=== PATIENT | female | born 1995 | race Caucasian/White ===

== ENCOUNTER 2018-12-25 10:20 | Outpatient (CLI) | payer MEDICAID, SELFPAY ==
[2018-02-15 13:07] VITALS: BMI 23.2
[2018-12-25 10:33] VITALS: BMI 27.8
[2018-12-25 11:31] LABS: Hematocrit 36.2 % (37-47); Hemoglobin 11.9 g/dl (12.0-15.0); Mean Corp Hgb Conc 32.9 g/gl (32-36); Mean Corpuscular Hgb 28.5 pg (27.0-32.0); Mean Corpuscular Volume 86.8 fL (81-99); Mean Platelet Vol. 10.8 fl (6.2-12.0); Platelet Count 276 K/mm3 (150-450); RBC Distribution Width CV 13.1 % (11.6-14.6); RBC Distribution Width SD 40.6 fl (35.1-43.9); Red Blood Count 4.17 M/mm3 (4.2-5.4); White Blood Count 8.3 K/mm3 (4.4-11.0)
[2018-12-25 11:38] LABS: Prothrombin Time (Protime)PT. 12.5 SECONDS (11.7-14.9); Scan Indicated on CBC? Y/N NO
[2018-12-25 11:39] LABS: Partial Thromboplast Time 27.9 Seconds (24.1-36.2)
[2018-12-25 11:44] LABS: Protein, Urine (Random) 22.2 mg/dL (<11.9); Protein:Creat Ratio 396 mg/g CRE (0-200)
[2018-12-25 11:45] LABS: AST(SGOT) 82 U/L (15-37); Alanine Aminotransfer ALT/SGPT 122 U/L (13-56); Creatinine, Serum 0.54 mg/dL (0.55-1.02); EST Glomerular Filtration Rate 146 mL/min (>60); Est Glom Filt Rate - Afr Amer 177 mL/min (>60); Estimated Creatinine Clearance 131.74 ml/min; Uric Acid 4.9 mg/dL (2.6-6.0)
[2018-12-25 11:52] LABS: Amphetamine Urine VISTA NEGATIVE (<1000 ng/mL); Barbiturate Urine VISTA NEGATIVE (< 200 ng/mL); Benzodiazepine Urine VISTA NEGATIVE (< 200 ng/mL); Cocaine Urine VISTA NEGATIVE (< 300 ng/mL); Ecstacy Urine VISTA NEGATIVE (< 500 ng/mL); Methadone Urine VISTA NEGATIVE (< 300 ng/mL); PCP Urine VISTA NEGATIVE (< 25 ng/mL); THC Urine VISTA NEGATIVE (< 50 ng/mL); Vista UDS pH Range 7
--- NOTE | 2018-12-25 12:57 | OB.TRI.NOTE ---
History of Present Illness Date of Service: 12/25/18 Was patient seen by the physician?: Yes Reason For Visit: RIGHT UPPER QUADRANT PAIN Date of Service: 12/25/18 Gestational age: 33.0 History of Present Illness: 23yo @ 33 wks with PRE E without severe features- here for elevated BP- taken at [facility]. pt was sent by [employer]- BPs 120s/90s. pt reports has had intermittent headache behind both eyes, no visual changes, some RUQ discomfort, no N/V. pt was admitted to [facility] for three days- discharged yesterday - was sent to [facility] initially for detox due to heroin relapse- found to have PRE E without severe features and monitored. pt reports was told she had to go to [facility] for delivery and remainder of care due to subutex rx. after monitoring on L&D FHR reactive cat 1 - pt reports improvement in Headache without intervention. Allergies No Known Allergies Allergy (Verified 12/25/18 10:37) - Pertinent Past Medical History Medical History: Past Medical History (Last Updated 02/15/18 @ 13:11 by Michaela Dorsey) H/O emotional problems Hemorrhoids Incontinence Migraines Laboratory Studies: Laboratory Tests 12/25/18 12/25/18 12/25/18 Range/Units 11:12 11:12 11:12 WBC (4.4-11.0) K/mm3 RBC (4.2-5.4) M/mm3 Hgb (12.0-15.0) g/dl Hct (37-47) % MCV (81-99) fL MCH (27.0-32.0) pg MCHC (32-36) g/gl RDW (11.6-14.6) % RDW Differential (35.1-43.9) fl Plt Count (150-450) K/mm3 MPV (6.2-12.0) fl PT (11.7-14.9) SECONDS INR APTT (24.1-36.2) Seconds Creatinine 0.54 L (0.55-1.02) mg/dL Estim Creat Clear Calc 131.74 ml/min Est GFR (MDRD) Af Amer 177 (>60) mL/min Est GFR (MDRD) Non-Af 146 (>60) mL/min Uric Acid 4.9 (2.6-6.0) mg/dL AST 82 H (15-37) U/L ALT 122 H (13-56) U/L U Random Total Protein 22.2 H (<11.9) mg/dL Urine Creatinine 56.10 (NO RANGE EST.) mg/dL Protein/Creatinin Ratio 396 H (0-200) mg/g CRE Urine Opiates Screen NEGATIVE (< 300 ng/mL) Urine Methadone Screen NEGATIVE (< 300 ng/mL) Ur Barbiturates Screen NEGATIVE (< 200 ng/mL) Ur Phencyclidine Scrn NEGATIVE (< 25 ng/mL) Ur Amphetamines Screen NEGATIVE (<1000 ng/mL) U Methamphetamin-MDMA NEGATIVE (< 500 ng/mL) U Benzodiazepines Scrn NEGATIVE (< 200 ng/mL) Urine Cocaine Screen NEGATIVE (< 300 ng/mL) U Cannabinoids Screen NEGATIVE (< 50 ng/mL) Ur Drug Screen Comment 12/25/18 12/25/18 Range/Units 11:12 11:12 WBC 8.3 (4.4-11.0) K/mm3 RBC 4.17 L (4.2-5.4) M/mm3 Hgb 11.9 L (12.0-15.0) g/dl Hct 36.2 L (37-47) % MCV 86.8 (81-99) fL MCH 28.5 (27.0-32.0) pg MCHC 32.9 (32-36) g/gl RDW 13.1 (11.6-14.6) % RDW Differential 40.6 (35.1-43.9) fl Plt Count 276 (150-450) K/mm3 MPV 10.8 (6.2-12.0) fl PT 12.5 (11.7-14.9) SECONDS INR 1.0 APTT 27.9 (24.1-36.2) Seconds Creatinine (0.55-1.02) mg/dL Estim Creat Clear Calc ml/min Est GFR (MDRD) Af Amer (>60) mL/min Est GFR (MDRD) Non-Af (>60) mL/min Uric Acid (2.6-6.0) mg/dL AST (15-37) U/L ALT (13-56) U/L U Random Total Protein (<11.9) mg/dL Urine Creatinine (NO RANGE EST.) mg/dL Protein/Creatinin Ratio (0-200) mg/g CRE Urine Opiates Screen (< 300 ng/mL) Urine Methadone Screen (< 300 ng/mL) Ur Barbiturates Screen (< 200 ng/mL) Ur Phencyclidine Scrn (< 25 ng/mL) Ur Amphetamines Screen (<1000 ng/mL) U Methamphetamin-MDMA (< 500 ng/mL) U Benzodiazepines Scrn (< 200 ng/mL) Urine Cocaine Screen (< 300 ng/mL) U Cannabinoids Screen (< 50 ng/mL) Ur Drug Screen Comment Review of Systems Eyes: Denies: Blurred vision HEENT: Reports: Head Aches - improvement in headache Cardiovascular: Denies: Chest Pain Physical Exam General: Alert, Oriented x3 Abdomen: Soft, Gravid, - - fetus high- pressing in RUQ- on deep palpation has minmal pain- i feel this is more position. Extremities:: Deep tendon reflexes - +1-+2 Neurological: Cranial nerves II-XII grossly intact NST - FHR Rate Baby A Baseline: 135 Variability:: Moderate Accelerations:: 15 x 15 Decelerations:: None NST Reactive:: Yes FHR Category:: Category I Uterine Activity:: irregular Impression/Plan 23yo @ 33 wks- PRE Eclampsia without severe features 1) will call one eighty to get better understanding of plan of care 2) able to get labs from [facility]- LFTs trending down (has hep C), [facility] 3) pt does not remember receiving steroids at [facility]- would consider 4) instructed patient that she needs to decide where she will be receiving care from here on out- if decides on [facility] then needs to make sure she has follow up there. otherwise i will have our nurses with [facility] call and schedule follow up appt. 5) dc instructions reviewed 6) NST today - reactive cat 1
--- NOTE | 2018-12-25 13:01 | OB.TRI.HP_ITS ---
History of Present Illness Date of Service: 12/25/18 Was patient seen by the physician?: Yes Reason For Visit: RIGHT UPPER QUADRANT PAIN Date of Service: 12/25/18 Gestational age: 33.0 History of Present Illness: 23yo @ 33 wks with PRE E without severe features- here for elevated BP- taken at [facility]. pt was sent by [employer]- BPs 120s/90s. pt reports has had intermittent headache behind both eyes, no visual changes, some RUQ discomfort, no N/V. pt was admitted to [facility] for three days- discharged yesterday - was sent to [facility] initially for detox due to heroin relapse- found to have PRE E without severe features and monitored. pt reports was told she had to go to [facility] for delivery and remainder of care due to subutex rx. after monitoring on L&D FHR reactive cat 1 - pt reports improvement in Headache without intervention. Allergies No Known Allergies Allergy (Verified 12/25/18 10:37) - Pertinent Past Medical History Medical History: Past Medical History (Last Updated 02/15/18 @ 13:11 by Michaela Dorsey) H/O emotional problems Hemorrhoids Incontinence Migraines Laboratory Studies: Laboratory Tests 12/25/18 12/25/18 12/25/18 Range/Units 11:12 11:12 11:12 WBC (4.4-11.0) K/mm3 RBC (4.2-5.4) M/mm3 Hgb (12.0-15.0) g/dl Hct (37-47) % MCV (81-99) fL MCH (27.0-32.0) pg MCHC (32-36) g/gl RDW (11.6-14.6) % RDW Differential (35.1-43.9) fl Plt Count (150-450) K/mm3 MPV (6.2-12.0) fl PT (11.7-14.9) SECONDS INR APTT (24.1-36.2) Seconds Creatinine 0.54 L (0.55-1.02) mg/dL Estim Creat Clear Calc 131.74 ml/min Est GFR (MDRD) Af Amer 177 (>60) mL/min Est GFR (MDRD) Non-Af 146 (>60) mL/min Uric Acid 4.9 (2.6-6.0) mg/dL AST 82 H (15-37) U/L ALT 122 H (13-56) U/L U Random Total Protein 22.2 H (<11.9) mg/dL Urine Creatinine 56.10 (NO RANGE EST.) mg/dL Protein/Creatinin Ratio 396 H (0-200) mg/g CRE Urine Opiates Screen NEGATIVE (< 300 ng/mL) Urine Methadone Screen NEGATIVE (< 300 ng/mL) Ur Barbiturates Screen NEGATIVE (< 200 ng/mL) Ur Phencyclidine Scrn NEGATIVE (< 25 ng/mL) Ur Amphetamines Screen NEGATIVE (<1000 ng/mL) U Methamphetamin-MDMA NEGATIVE (< 500 ng/mL) U Benzodiazepines Scrn NEGATIVE (< 200 ng/mL) Urine Cocaine Screen NEGATIVE (< 300 ng/mL) U Cannabinoids Screen NEGATIVE (< 50 ng/mL) Ur Drug Screen Comment 12/25/18 12/25/18 Range/Units 11:12 11:12 WBC 8.3 (4.4-11.0) K/mm3 RBC 4.17 L (4.2-5.4) M/mm3 Hgb 11.9 L (12.0-15.0) g/dl Hct 36.2 L (37-47) % MCV 86.8 (81-99) fL MCH 28.5 (27.0-32.0) pg MCHC 32.9 (32-36) g/gl RDW 13.1 (11.6-14.6) % RDW Differential 40.6 (35.1-43.9) fl Plt Count 276 (150-450) K/mm3 MPV 10.8 (6.2-12.0) fl PT 12.5 (11.7-14.9) SECONDS INR 1.0 APTT 27.9 (24.1-36.2) Seconds Creatinine (0.55-1.02) mg/dL Estim Creat Clear Calc ml/min Est GFR (MDRD) Af Amer (>60) mL/min Est GFR (MDRD) Non-Af (>60) mL/min Uric Acid (2.6-6.0) mg/dL AST (15-37) U/L ALT (13-56) U/L U Random Total Protein (<11.9) mg/dL Urine Creatinine (NO RANGE EST.) mg/dL Protein/Creatinin Ratio (0-200) mg/g CRE Urine Opiates Screen (< 300 ng/mL) Urine Methadone Screen (< 300 ng/mL) Ur Barbiturates Screen (< 200 ng/mL) Ur Phencyclidine Scrn (< 25 ng/mL) Ur Amphetamines Screen (<1000 ng/mL) U Methamphetamin-MDMA (< 500 ng/mL) U Benzodiazepines Scrn (< 200 ng/mL) Urine Cocaine Screen (< 300 ng/mL) U Cannabinoids Screen (< 50 ng/mL) Ur Drug Screen Comment Review of Systems Eyes: Denies: Blurred vision HEENT: Reports: Head Aches - improvement in headache Cardiovascular: Denies: Chest Pain Physical Exam General: Alert, Oriented x3 Abdomen: Soft, Gravid, - - fetus high- pressing in RUQ- on deep palpation has minmal pain- i feel this is more position. Extremities:: Deep tendon reflexes - +1-+2 Neurological: Cranial nerves II-XII grossly intact NST - FHR Rate Baby A Baseline: 135 Variability:: Moderate Accelerations:: 15 x 15 Decelerations:: None NST Reactive:: Yes FHR Category:: Category I Uterine Activity:: irregular Impression/Plan 23yo @ 33 wks- PRE Eclampsia without severe features 1) will call one [facility] to get better understanding of plan of care 2) able to get labs from [facility]- LFTs trending down (has hep C), [facility] 3) pt does not remember receiving steroids at [facility]- would consider 4) instructed patient that she needs to decide where she will be receiving care from here on out- if decides on [facility] then needs to make sure she has follow up there. otherwise i will have our nurses with [facility] call and schedule follow up appt. 5) dc instructions reviewed 6) NST today - reactive cat 1
[2018-12-25] MEDS: Acetaminophen 500 MG Tablet 1000 MG PO (13:04)
== END 2018-12-25 13:30 | disposition home or self-care (01) ==
LOC: WPOUT 10:27 → WP 10:28
PROVIDERS: Family Provider Internal Medicine; PCP Internal Medicine; Referring Provider Obstetrics & Gynecology; Visit Provider Obstetrics & Gynecology
DX: O14.93 Unspecified pre-eclampsia, third trimester (principal); O26.893 Other specified pregnancy related conditions, third trimester; R10.11 Right upper quadrant pain; O98.413 Viral hepatitis complicating pregnancy, third trimester; B19.20 Unspecified viral hepatitis C without hepatic coma; Z3A.33 33 weeks gestation of pregnancy
CPT/HCPCS: 36415; 59025; 59050; 80307; 82565; 82570; 84156; 84450; 84460; 84550; 85027; 85610; 85730; 99218; J7030; G0378

== ENCOUNTER 2019-01-12 00:35 | Outpatient (CLI) | payer MEDICAID, SELFPAY ==
[2019-01-12 01:30] VITALS: BMI 28.7
[2019-01-12 01:53] LABS: Bacteria 0 SEEN /hpf (None Seen); Mucous, Urine 0 SEEN /hpf (<or=2+); Red Blood Cells-Urine 0 SEEN /hpf (0-5)
[2019-01-12 01:55] LABS: Color, Urine Yellow (Yellow); Glucose, Dipstick Normal (Normal); Ketone-Dipstick Negative (Negative); Leukocyte Esterase-Dipstick 25 /ul (Negative); Nitrite-Dipstick Negative (Negative); Occult Blood-Urine Negative /ul (Negative); Protein-Dipstick Negative (Negative); Urine Bilirubin Dipstick Negative (Negative); Urine Clarity Clear (Clear); Urine Urobilinogen 1 mg/dl (Normal)
[2019-01-12 02:00] LABS: Vista UDS pH Range 7
[2019-01-12 02:08] LABS: Amphetamine Urine VISTA POSITIVE (<1000 ng/mL); Barbiturate Urine VISTA NEGATIVE (< 200 ng/mL); Benzodiazepine Urine VISTA NEGATIVE (< 200 ng/mL); Cocaine Urine VISTA NEGATIVE (< 300 ng/mL); Ecstacy Urine VISTA NEGATIVE (< 500 ng/mL); Methadone Urine VISTA NEGATIVE (< 300 ng/mL); PCP Urine VISTA NEGATIVE (< 25 ng/mL); THC Urine VISTA NEGATIVE (< 50 ng/mL)
[2019-01-12 02:09] LABS: Squamous Epithelial Cells - UA 5-10 SEEN /hpf (5-10); White Blood Cells 0-5 SEEN /hpf (0-5)
[2019-01-12 02:24] LABS: Protein, Urine (Random) 19.7 mg/dL (<11.9); Protein:Creat Ratio 377 mg/g CRE (0-200)
[2019-01-12 03:13] LABS: Hemoglobin 10.8 g/dl (12.0-15.0); Mean Corp Hgb Conc 33.8 g/gl (32-36); Mean Corpuscular Hgb 28.4 pg (27.0-32.0); Mean Corpuscular Volume 84.2 fL (81-99); Mean Platelet Vol. 11.2 fl (6.2-12.0); Platelet Count 293 K/mm3 (150-450); RBC Distribution Width CV 12.8 % (11.6-14.6); RBC Distribution Width SD 37.8 fl (35.1-43.9); White Blood Count 7.4 K/mm3 (4.4-11.0)
[2019-01-12 03:14] LABS: Scan Indicated on CBC? Y/N NO
[2019-01-12 03:19] LABS: Prothrombin Time (Protime)PT. 12.7 SECONDS (11.7-14.9)
[2019-01-12 03:20] LABS: Partial Thromboplast Time 28.7 Seconds (24.1-36.2)
[2019-01-12 03:34] LABS: AST(SGOT) 79 U/L (15-37); Alanine Aminotransfer ALT/SGPT 77 U/L (13-56); EST Glomerular Filtration Rate 128 mL/min (>60); Est Glom Filt Rate - Afr Amer 155 mL/min (>60); Estimated Creatinine Clearance 118.57 ml/min; Uric Acid 5.1 mg/dL (2.6-6.0)
[2019-01-12 04:11] VITALS: BP 120/76; PULSE 71; RESP 16; TEMP 36.6
[2019-01-12 05:07] LABS: Group B Strep DNA By PCR Negative (Negative); Internal Control PASS; Probe Check PASS; Specimen Processing Control PASS
[2019-01-13 20:06] LABS: HCV Quant. RNA PCR See Final Results IU/mL (.)
--- NOTE | 2019-01-14 07:50 | OB.TRI.HP_ITS ---
- Problem List (1) 35 weeks gestation of Status: Acute (2) Decreased movement Status: Acute History of Present Illness Date of Service: 01/12/19 Was patient seen by the physician?: No Reason For Visit: DFM Date of Service: 01/12/19 Final MYRON: 02/12/19 Gestational age: 35 Weeks and 6 Days History of Present Illness: who presented at 35w4d with DFM. No other complaints. H/o pre-eclampsia without severe features. No GUILLAUME, vision changes, RUQ pain. H/o hepatitis C and drug use. Not receiving routine care Allergies No Known Allergies Allergy (Verified 12/25/18 10:37) - Pertinent Past Medical History Medical History: Past Medical History (Last Updated 02/15/18 @ 13:11 by Michaela Dorsey) H/O emotional problems Hemorrhoids Incontinence Migraines Laboratory Studies: Laboratory Tests 01/12/19 01/12/19 01/12/19 Range/Units 03:00 03:00 03:00 WBC (4.4-11.0) K/mm3 RBC (4.2-5.4) M/mm3 Hgb (12.0-15.0) g/dl Hct (37-47) % MCV (81-99) fL MCH (27.0-32.0) pg MCHC (32-36) g/gl RDW (11.6-14.6) % RDW Differential (35.1-43.9) fl Plt Count (150-450) K/mm3 MPV (6.2-12.0) fl PT 12.7 (11.7-14.9) SECONDS INR 1.0 APTT 28.7 (24.1-36.2) Seconds Creatinine 0.60 (0.55-1.02) mg/dL Estim Creat Clear Calc 118.57 ml/min Est GFR (MDRD) Af Amer 155 (>60) mL/min Est GFR (MDRD) Non-Af 128 (>60) mL/min Uric Acid 5.1 (2.6-6.0) mg/dL AST 79 H (15-37) U/L ALT 77 H (13-56) U/L Urine Color (Yellow) Urine Clarity (Clear) Urine pH (5.0 - 8.0) Ur Specific [place] (1.002-1.030) Urine Protein (Negative) mg/dl Urine Glucose (UA) (Normal) mg/dl Urine Ketones (Negative) mg/dl Urine Occult Blood (Negative) /ul Urine Nitrite (Negative) Urine Bilirubin (Negative) mg/dL Urine Urobilinogen (Normal) mg/dl Ur Leukocyte Esterase (Negative) /ul Urine RBC (0-5) /hpf Urine WBC (0-5) /hpf Ur Squamous Epith Cells (5-10) /hpf Urine Bacteria (None Seen) /hpf Urine Mucus (<or=2+) /hpf U Random Total Protein (<11.9) mg/dL Urine Creatinine (NO RANGE EST.) mg/dL Protein/Creatinin Ratio (0-200) mg/g CRE Urine Opiates Screen (< 300 ng/mL) Urine Methadone Screen (< 300 ng/mL) Ur Barbiturates Screen (< 200 ng/mL) Ur Phencyclidine Scrn (< 25 ng/mL) Ur Amphetamines Screen (<1000 ng/mL) U Methamphetamin-MDMA (< 500 ng/mL) U Benzodiazepines Scrn (< 200 ng/mL) Urine Cocaine Screen (< 300 ng/mL) U Cannabinoids Screen (< 50 ng/mL) Ur Drug Screen Comment Group B Strep DNA Negative (Negative) Specimen Comment Not Reportable 01/12/19 01/12/19 01/12/19 Range/Units 03:00 01:40 01:40 WBC 7.4 (4.4-11.0) K/mm3 RBC 3.80 L (4.2-5.4) M/mm3 Hgb 10.8 L (12.0-15.0) g/dl Hct 32.0 L (37-47) % MCV 84.2 (81-99) fL MCH 28.4 (27.0-32.0) pg MCHC 33.8 (32-36) g/gl RDW 12.8 (11.6-14.6) % RDW Differential 37.8 (35.1-43.9) fl Plt Count 293 (150-450) K/mm3 MPV 11.2 (6.2-12.0) fl PT (11.7-14.9) SECONDS INR APTT (24.1-36.2) Seconds Creatinine (0.55-1.02) mg/dL Estim Creat Clear Calc ml/min Est GFR (MDRD) Af Amer (>60) mL/min Est GFR (MDRD) Non-Af (>60) mL/min Uric Acid (2.6-6.0) mg/dL AST (15-37) U/L ALT (13-56) U/L Urine Color (Yellow) Urine Clarity (Clear) Urine pH (5.0 - 8.0) Ur Specific [place] (1.002-1.030) Urine Protein (Negative) mg/dl Urine Glucose (UA) (Normal) mg/dl Urine Ketones (Negative) mg/dl Urine Occult Blood (Negative) /ul Urine Nitrite (Negative) Urine Bilirubin (Negative) mg/dL Urine Urobilinogen (Normal) mg/dl Ur Leukocyte Esterase (Negative) /ul Urine RBC (0-5) /hpf Urine WBC (0-5) /hpf Ur Squamous Epith Cells (5-10) /hpf Urine Bacteria (None Seen) /hpf Urine Mucus (<or=2+) /hpf U Random Total Protein 19.7 H (<11.9) mg/dL Urine Creatinine 52.30 (NO RANGE EST.) mg/dL Protein/Creatinin Ratio 377 H (0-200) mg/g CRE Urine Opiates Screen POSITIVE H (< 300 ng/mL) Urine Methadone Screen NEGATIVE (< 300 ng/mL) Ur Barbiturates Screen NEGATIVE (< 200 ng/mL) Ur Phencyclidine Scrn NEGATIVE (< 25 ng/mL) Ur Amphetamines Screen POSITIVE H (<1000 ng/mL) U Methamphetamin-MDMA NEGATIVE (< 500 ng/mL) U Benzodiazepines Scrn NEGATIVE (< 200 ng/mL) Urine Cocaine Screen NEGATIVE (< 300 ng/mL) U Cannabinoids Screen NEGATIVE (< 50 ng/mL) Ur Drug Screen Comment Group B Strep DNA (Negative) Specimen Comment 01/12/19 Range/Units 01:40 WBC (4.4-11.0) K/mm3 RBC (4.2-5.4) M/mm3 Hgb (12.0-15.0) g/dl Hct (37-47) % MCV (81-99) fL MCH (27.0-32.0) pg MCHC (32-36) g/gl RDW (11.6-14.6) % RDW Differential (35.1-43.9) fl Plt Count (150-450) K/mm3 MPV (6.2-12.0) fl PT (11.7-14.9) SECONDS INR APTT (24.1-36.2) Seconds Creatinine (0.55-1.02) mg/dL Estim Creat Clear Calc ml/min Est GFR (MDRD) Af Amer (>60) mL/min Est GFR (MDRD) Non-Af (>60) mL/min Uric Acid (2.6-6.0) mg/dL AST (15-37) U/L ALT (13-56) U/L Urine Color Yellow (Yellow) Urine Clarity Clear (Clear) Urine pH 7.0 (5.0 - 8.0) Ur Specific [place] 1.010 (1.002-1.030) Urine Protein Negative (Negative) mg/dl Urine Glucose (UA) Normal (Normal) mg/dl Urine Ketones Negative (Negative) mg/dl Urine Occult Blood Negative (Negative) /ul Urine Nitrite Negative (Negative) Urine Bilirubin Negative (Negative) mg/dL Urine Urobilinogen 1 H (Normal) mg/dl Ur Leukocyte Esterase 25 H (Negative) /ul Urine RBC 0 SEEN (0-5) /hpf Urine WBC 0-5 SEEN (0-5) /hpf Ur Squamous Epith Cells 5-10 SEEN (5-10) /hpf Urine Bacteria 0 SEEN (None Seen) /hpf Urine Mucus 0 SEEN (<or=2+) /hpf U Random Total Protein (<11.9) mg/dL Urine Creatinine (NO RANGE EST.) mg/dL Protein/Creatinin Ratio (0-200) mg/g CRE Urine Opiates Screen (< 300 ng/mL) Urine Methadone Screen (< 300 ng/mL) Ur Barbiturates Screen (< 200 ng/mL) Ur Phencyclidine Scrn (< 25 ng/mL) Ur Amphetamines Screen (<1000 ng/mL) U Methamphetamin-MDMA (< 500 ng/mL) U Benzodiazepines Scrn (< 200 ng/mL) Urine Cocaine Screen (< 300 ng/mL) U Cannabinoids Screen (< 50 ng/mL) Ur Drug Screen Comment Group B Strep DNA (Negative) Specimen Comment Review of Systems Eyes: Denies: Blurred vision, Vision Change HEENT: Denies: Head Aches Gastrointestinal: Denies: Abdominal Pain, Nausea, Vomiting Physical Exam Vitals: Vital Signs Temp Pulse Resp BP 97.9 F 71 16 120/76 01/12/19 04:11 01/12/19 04:11 01/12/19 04:11 01/12/19 04:11 NST - FHR Rate Baby A Baseline: 130 Variability:: Moderate Accelerations:: 15 x 15 Decelerations:: None NST Reactive:: Yes Uterine Activity:: Irritability Impression/Plan NST reactive Pre-e labs obtained. Normal-mild range BP's and no symptoms of pre-e. Has known pre-eclampsia without severe features. Will need IOL at 37 wks H/o hep C. Viral load obtained GBS collected D/c home
[2019-01-14 13:29] LABS: HCV log 10 7.297 (.)
== END 2019-01-12 04:30 | disposition home or self-care (01) ==
LOC: WPOUT 01:06 → WP 01:07
PROVIDERS: Family Provider Internal Medicine; PCP Internal Medicine; Visit Provider Obstetrics & Gynecology
DX: O36.8130 Decreased fetal movements, third trimester, not applicable or unspecified (principal); O14.93 Unspecified pre-eclampsia, third trimester; O09.33 Supervision of pregnancy with insufficient antenatal care, third trimester; O98.413 Viral hepatitis complicating pregnancy, third trimester; B19.20 Unspecified viral hepatitis C without hepatic coma; O99.323 Drug use complicating pregnancy, third trimester; Z3A.35 35 weeks gestation of pregnancy
CPT/HCPCS: 36415; 59025; 59050; 80307; 81001; 82565; 82570; 84156; 84450; 84460; 84550; 85027; 85610; 85730; 87081; 87522; 87653; 99218; G0378

== ENCOUNTER 2019-02-05 19:12 | Emergency (ER) | payer MEDICAID, SELFPAY ==
[2019-02-05 19:15] VITALS: BP 136/81; PULSE 120; RESP 20; TEMP 36.8; O2SAT 97; BMI 23.0
[2019-02-05 20:00] LABS: Absolute Lymphocyte Count 1.71 X10^3/ul (0.83-4.51); Absolute Neutrophil Count 3.7 X10^3/uL (2.0-7.7); Basophil# 0.03 X10^3/uL; Basophil% 0.5 % (0-1); Eosinophil# 0.29 X10^3/uL; Eosinophils% 4.6 % (0-5); Hematocrit 34.6 % (37-47); Lymphocyte # 1.71 X10^3/ul (4.0); Lymphocyte % 27.2 % (19-41); Mean Corp Hgb Conc 31.8 g/gl (32-36); Mean Corpuscular Hgb 26.2 pg (27.0-32.0); Mean Corpuscular Volume 82.4 fL (81-99); Mean Platelet Vol. 9.9 fl (6.2-12.0); Monocyte# 0.56 X10^3/uL; Monocyte% 8.9 % (0-10); Neutrophil # 3.69 X10^3/uL (2.7-7.7); Neutrophil % 58.6 % (47-70); Platelet Count 445 K/mm3 (150-450); RBC Distribution Width CV 12.1 % (11.6-14.6); RBC Distribution Width SD 35.6 fl (35.1-43.9); White Blood Count 6.3 K/mm3 (4.4-11.0)
--- NOTE | 2019-02-05 20:01 | ED.DCSUM_ITS ---
History of Present Illness Chief Complaint: Mental Health Informant: Patient Onset: Days Current Severity: Mild Narrative: The patient has history of IV heroin abuse, she is about 3 weeks , she has a long history of heroin abuse she was on Subutex during then began using heroin after she delivered, she indicates she had no complications from the delivery the baby is fine Apparently today her grandparents who she lives with saw her shooting heroin a dispute broke out with the grandparents who then were concerned that the patient was trying to self harm herself so registered medical transcriptionist deputies were called and she was brought to the emergency department. The patient reports she is not suicidal she is not homicidal she plans to go to [facility] [place] tomorrow morning to reestablish detox services she was on Suboxone in the past, She has no complaints of any kind she denies head neck chest or abdominal pain she would actually like to be discharged I told her we have to have mental health service to see her because of all the above Past Medical History - Allergies and Home Meds Allergies/Adverse Reactions: Allergies No Known Allergies Allergy (Verified 02/05/19 19:14) Primary Care Physician: Daniela Ledbetter MD [STAFF PHYSICIAN] - Past Medical History: - - IV heroin abuse she is status post delivery 3 weeks ago of a healthy child, history of hepatitis she denies other past history no history of any type of infections HIV endocarditis cellulitis Surgical History: no surgical history Smoking Status: Current every day smoker - Family History Paternal Family History: Family History (Last Updated 02/15/18 @ 13:12 by Michaela Dorsey) Mother Bipolar 1 disorder Depression Anxiety Suicide STD (female) drug addiciton Grandmother Breast cancer Arthritis Sister Depression Father Alcoholism Other Thyroid disorder Family History: Reports: No pertinent history Maternal Family History: Family History (Last Updated 02/15/18 @ 13:12 by Michaela Dorsey) Mother Bipolar 1 disorder Depression Anxiety Suicide STD (female) drug addiciton Grandmother Breast cancer Arthritis Sister Depression Father Alcoholism Other Thyroid disorder Family History: Reports: No pertinent history Review of Systems All systems negative except as indicated General: Denies: Chills, Fever, Sweats Eyes: Denies: Visual changes - bilaterally, Diplopia ENT: Denies: Rhinorrhea, Sore throat Cardiovascular: Denies: Chest pain, Palpitations Respiratory: Denies: Dyspnea, Cough, Dyspnea on exertion Gastrointestinal: Denies: Abdominal pain, Nausea, Vomiting, Diarrhea, Melena, Hematochezia Genitourinary: Denies: Dysuria, Hematuria, Frequency Musculoskeletal: Denies: Back pain, Extremity Pain Skin: Denies: Rash, Wounds Neurological: Denies: Headache, Weakness, Numbness Physical Exam Vital Signs/Narrative: Vital Signs Temp Pulse Resp BP Pulse Ox 02/05/19 19:15 98.3 F 120 H 20 H 136/81 H 97 Inital Vital Signs reviewed: Yes General: Well nourished, Well developed, No Acute Distress Head: Normocephalic, Atraumatic Eyes: Perrl, EOMI ENT: Moist mucous membranes, No rhinorrhea Neck: Supple, Nontender Cardiovascular: Regular rate, Regular rhythm, No murmurs Respiratory: No distress, CTA bilaterally, Chest nontender Abdomen: Soft, Nontender, Nondistended, Normal bowel sounds Back: Nontender, Normal Inspection Extremities: Nontender, No edema, - - Her injection sites are unremarkable no signs of infection Skin: Normal color, No rash Neurological: Alert, Oriented x3, Cranial nerves II-XII grossly intact, Normal Strength, Normal Sensation Psychological: Normal affect, Normal Mood Diagnostic/Tx/Re-eval - Medical Decision Making Patient screening labs are generally unremarkable, see those reports, her tox screen is positive, she is remained awake alert with no complaints continues to report she is not suicidal at this time mental health evaluation they will determine her outpatient versus inpatient management options and ultimate disposition Impression final IVDA heroin abuse Reported suicidal ideation by family 3 weeks mental health evaluation underway ED Disposition - Plan for ED Patient: Referrals: Daniela Ledbetter MD [STAFF PHYSICIAN] -
[2019-02-05 20:02] LABS: POSITIVE COUNT NO; POSITIVE DIFFERENTIAL NO; POSITIVE MORPHOLOGY NO
[2019-02-05 20:10] LABS: Amphetamine Urine VISTA POSITIVE (<1000 ng/mL); Barbiturate Urine VISTA NEGATIVE (< 200 ng/mL); Benzodiazepine Urine VISTA NEGATIVE (< 200 ng/mL); Cocaine Urine VISTA NEGATIVE (< 300 ng/mL); Ecstacy Urine VISTA NEGATIVE (< 500 ng/mL); Internal QC Validated? YES +Cl - CLEAR BKGD; Methadone Urine VISTA NEGATIVE (< 300 ng/mL); PCP Urine VISTA NEGATIVE (< 25 ng/mL); Pregnancy, Serum, hCG Quali. NEGATIVE Negative; THC Urine VISTA NEGATIVE (< 50 ng/mL); Vista UDS pH Range 6
[2019-02-05 20:16] LABS: Anion Gap 6 (5-15); BUN 11 mg/dL (7-18); BUN/Creat Ratio 11.7 RATIO (10-20); Calcium,Total 9.1 mg/dL (8.5-10.1); Chloride 107 mmol/L (98-107); Creatinine, Serum 0.94 mg/dL (0.55-1.02); EST Glomerular Filtration Rate 77 mL/min (>60); Est Glom Filt Rate - Afr Amer 93 mL/min (>60); Estimated Creatinine Clearance 75.68 ml/min; Glucose 94 mg/dL (74-106); Potassium 3.4 mmol/L (3.5-5.1); Sodium Level 140 mmol/L (136-145)
--- NOTE | 2019-02-05 21:39 | ED.RN ---
MD AWARE OF THREE ATTEMPTS TO START IV UNSUCCESSFULLY.STATED OKAY AND TO PUSH FLUID.WATER GIVEN.
[2019-02-05 22:27] VITALS: BP 116/78; PULSE 104; RESP 18; O2SAT 100
--- NOTE | 2019-02-05 23:33 | ED.RN ---
patient has been accepted to [place] [id number] Larsen. nurse to nurse number [phone]
[2019-02-06] VITALS (8 sets, daily range): BP systolic 116–125; BP diastolic 70–86; PULSE 70–99; RESP 16–18; TEMP 36.7; O2SAT 95–100
--- NOTE | 2019-02-06 05:37 | ED.RN ---
sitter remains at the bedside,pt appears to be asleep,resp even.
--- NOTE | 2019-02-06 07:00 | NURSING ---
CALLED [facility] FOR TRANSPORT. ETA IS [phone]
== END 2019-02-06 08:02 ==
LOC: ED 20:14
PROVIDERS: Emergency Provider Emergency Medicine
DX: F11.10 Opioid abuse, uncomplicated (principal); R45.851 Suicidal ideations; F17.200 Nicotine dependence, unspecified, uncomplicated
CPT/HCPCS: 36415; 80048; 80307; 80320; 84703; 85025; 99284; A4216; G0480

== ENCOUNTER 2019-05-10 12:42 | Emergency (ER) | payer MEDICAID, SELFPAY ==
[2019-05-10 12:43] VITALS: BP 133/71; PULSE 110; RESP 18; TEMP 36.5; O2SAT 99; BMI 25.3
[2019-05-10 12:49] VITALS: O2SAT 99
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
--- NOTE | 2019-05-10 13:25 | ED.DEP ---
ED Disposition - Plan for ED Patient: Instructions: FALL, Mechanical, HEAD INJURY, No Wake-Up (Adult), Sprain Foot Referrals: Care Physician,No Primary [Primary Care Provider] - Sivakumar West III, MD [STAFF PHYSICIAN] - 5-7 Days
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
[2019-05-10 13:40] VITALS: RESP 14
== END 2019-05-10 13:41 | disposition home or self-care (01) ==
LOC: ED 13:26
PROVIDERS: Emergency Provider Emergency Medicine
DX: S00.03XA Contusion of scalp, initial encounter (principal); S00.01XA Abrasion of scalp, initial encounter; S93.602A Unspecified sprain of left foot, initial encounter; V49.88XA Car occupant (driver) (passenger) injured in other specified transport accidents, initial encounter; Y93.89 Activity, other specified; Y92.410 Unspecified street and highway as the place of occurrence of the external cause; F11.90 Opioid use, unspecified, uncomplicated; Z72.0 Tobacco use
CPT/HCPCS: 70450; 73630; 99284

== ENCOUNTER 2019-11-13 13:35 | Outpatient (REF) | payer MEDICAID, SELFPAY ==
[2019-11-13 13:36] VITALS: BP 127/80; PULSE 106; RESP 20; TEMP 36.3; O2SAT 100; BMI 22.7
--- NOTE | 2019-11-13 14:08 | EKG12_ITS ---
Test Reason : Blood Pressure : / mmHG Vent. Rate : 090 BPM Atrial Rate : 090 BPM P-R Int : 204 ms QRS Dur : 074 ms QT Int : 364 ms P-R-T Axes : 056 024 050 degrees QTc Int : 445 ms Normal sinus rhythm Normal ECG Confirmed by PHYLLIS MCQUEEN, [place] ([id number]), general expeditor CLIF NICOLE ([id number]) on 11/16/2019 1:47:22 PM Referred By: ELEAZAR Confirmed By:ALYSON FERGUSON MD
--- NOTE | 2019-11-13 14:08 | CT_ITS ---
STUDY: CTA CHEST REASON FOR EXAM: Female, 24 years old. HEMOPTYSIS W/ CLOTS -- HX-SEPTIC PULMONARY EMBOLIS -- SURG-LUNG COILS RADIATION DOSAGE (If Supplied By Facility): CTDIvol = ( 5.68 ) mGy, DLP = ( 122.76 ) mGycm TECHNIQUE: The examination was performed with the intravenous administration of 75CC ISOVUE 370. Post-processing of the angiographic images was performed, with multiplanar reformation and 3D reconstruction. Individualized dose optimization techniques were used for this CT. COMPARISON: None. FINDINGS: Normal enhancement of the main pulmonary artery and right and left pulmonary arteries. Normal enhancement of the bilateral peripheral pulmonary arteries. There is no demonstrated pulmonary embolism. Normal thoracic aorta and visualized great vessels. There is no demonstrated aortic dissection. Normal heart and pericardium. Normal mediastinum. Mildly enlarged right hilar lymph nodes. Normal visualized trachea and bronchi. The lungs are well expanded. Patchy infiltrate in the posterior aspect of the right upper lobe as well as in the superior segment of the right lower lobe. Mild increased markings at the left lung base. Follow-up is recommended. Normal pleura. Normal chest wall structures. Normal osseous structures. Normal visualized upper abdomen. CT/CTA Chest W/WO Contrast IMPRESSION: Focal infiltrate in the right upper lobe as well as the superior segment of the right lower lobe. Mild increased markings at the left lung base as well. Electronically Signed: Severo Rosa, at 15:53 EDT , Service support ,
--- NOTE | 2019-11-13 14:27 | ED.DCSUM_ITS ---
- ER Visit Summary Date of Service: 11/13/19 Chief Complaint: Hemoptysis History of Present Illness: The patient is a 24 F who coughed up blood the last 2 nights. She did pass some small clots. She reports some pain to her right chest as well as some wheezing. She has a history of endocarditis, MRSA, septic pulmonary emboli, and lung aneurysm status post coiling at the [facility] in August 2019. She is not currently on blood thinners. She denies any other associated symptoms. Denies fevers or shortness of breath. Denies any other pain. Patient is currently in intermediate and presents in police custody. Denies travel or exposure to anyone with coronavirus. Physical Examination: Afebrile and vital signs unremarkable except for heart rate of 106. Patient in no acute distress. Alert and oriented. Sitting and breathing comfortably. Regular rate and rhythm. Lungs clear in all george. Abdomen soft. Extremities nontender with no edema. Test Results: EKG shows sinus rhythm at a rate of 90. No sign of acute ischemia or infarction pattern. Labs and CT chest pending. Emergency Department Course and Treatment: Patient was placed on a monitor. Treated with IV fluids while awaiting results. Repeat heart rate 88 and pulse ox 100%. Respiratory rate in the low 20s, patient appears comfortable. EKG showed sinus rhythm at a rate of 90. CBC normal. Chemistry panel unremarkable. Coags normal. Troponin normal. hCG negative. CT showed right upper lobe infiltrate and right lower lobe infiltrate. No emboli. There are increased markings at the left lung base. Patient is stable and appears well. Will treat for pneumonia. I believe these infiltrates could explain her hemoptysis. No sign of hemorrhage or emboli. She is not having chest pain or any other associated symptoms or findings. Will treat with doxycycline. Law enforcement confirmed that she will receive this medication. Patient was advised that the pneumonia can get worse. There are other causes for infiltrates, and she should follow-up right away if she has any new or worsening issues, chest pain, worsening bleeding, shortness of breath, high fevers despite treatment. Law enforcement and patient voiced understanding. Treatment Plan: As above Disposition: Discharge Impression: Right-sided pneumonia Hemoptysis This note was generated with GeoPalz dictation software. It may contain incorrect words, spelling, and punctuation that were not noted in review of the chart prior to signing ED Disposition - Plan for ED Patient: Referrals: Care Physician,No Primary [Primary Care Provider] -
[2019-11-13 14:49] LABS: Absolute Lymphocyte Count 1.76 X10^3/uL (0.83-4.51); Absolute Neutrophil Count 2.5 X10^3/uL (2.0-7.7); Basophil# 0.04 X10^3/uL; Basophil% 0.8 % (0-1); Eosinophil# 0.18 X10^3/uL; Eosinophils% 3.7 % (0-5); Hematocrit 40.6 % (37-47); Lymphocyte # 1.76 X10^3/ul (4.0); Lymphocyte % 35.8 % (19-41); Mean Corpuscular Hgb 27.7 pg (27.0-32.0); Mean Corpuscular Volume 86.6 fL (81-99); Mean Platelet Vol. 10.1 fl (6.2-12.0); Monocyte# 0.47 X10^3/uL; Monocyte% 9.6 % (0-10); NRBC Flagged by Analyzer 0 % (0-5); Neutrophil # 2.45 X10^3/uL (2.7-7.7); Neutrophil % 49.9 % (47-70); Platelet Count 263 K/mm3 (150-450); RBC Distribution Width CV 13.7 % (11.6-14.6); RBC Distribution Width SD 42.5 fl (35.1-43.9); Red Blood Count 4.69 M/mm3 (4.2-5.4); White Blood Count 4.9 K/mm3 (4.4-11.0)
[2019-11-13] MEDS: 0.9% Normal Saline 1,000 ML 1000 ML IV (15:00)
[2019-11-13 15:02] VITALS: O2SAT 99
[2019-11-13 15:06] VITALS: O2SAT 99
[2019-11-13 15:09] LABS: Anion Gap 4 (5-15); BUN 10 mg/dL (7-18); BUN/Creat Ratio 14.6 RATIO (10-20); Chloride 113 mmol/L (98-107); Creatinine, Serum 0.69 mg/dL (0.55-1.02); EST Glomerular Filtration Rate 110 mL/min (>60); Est Glom Filt Rate - Afr Amer 133 mL/min (>60); Estimated Creatinine Clearance 102.21 ml/min; Glucose 90 mg/dL (74-106); Potassium 4.2 mmol/L (3.5-5.1); Sodium Level 145 mmol/L (136-145)
[2019-11-13 15:17] LABS: International Normalized Ratio 1.2; Prothrombin Time (Protime)PT. 14.9 SECONDS (11.7-14.9)
[2019-11-13 15:18] LABS: Partial Thromboplast Time 28.9 Seconds (24.1-36.2)
[2019-11-13 15:23] LABS: Internal QC Validated? YES +Cl - CLEAR BKGD; Pregnancy, Serum, hCG Quali. NEGATIVE Negative
[2019-11-13 16:11] VITALS: BP 131/100; PULSE 83; RESP 20; O2SAT 100
--- NOTE | 2019-11-13 16:22 | ED.DEP ---
ED Disposition - Plan for ED Patient: Instructions: PNEUMONIA (Adult) Prescriptions: Doxycycline 100 mg PO BID #20 cap Prescription Printed Referrals: Mona Putnam [NON-STAFF] - Additional Instructions: follow up to recheck later this month. return right away for pain, shortness of breath, worsening bleeding, or fevers despite treatment with antibiotics
[2019-11-13] MEDS: Doxycycline 100 MG CAPSULE PO (16:33)
[2019-11-13 16:38] VITALS: BP 119/84; PULSE 84; RESP 21; O2SAT 100
--- NOTE | 2019-11-13 16:39 | ED.RN ---
IV DC'ED, CATHETER INTACT, SMALL GAUZE DRESSING PLACED. DISCHARGE INSTRUCTIONS GIVEN TO AND REVIEWED WITH PATIENT, PATIENT DENIES QUESTIONS OR CONCERNS AND VOICES UNDERSTANDING OF DISCHARGE INSTRUCTIONS. PT AMBULATES OUT OF ROOM WITHOUT DIFFICULTY.
== END 2019-11-13 16:43 ==
LOC: ED 13:35
PROVIDERS: Visit Provider Emergency Medicine
DX: J18.9 Pneumonia, unspecified organism (principal); R04.2 Hemoptysis; Z86.711 Personal history of pulmonary embolism
CPT/HCPCS: 71275; 80048; 84484; 84703; 85025; 85610; 85730; 93005; 99284; J7030; Q9967; A4216

== ENCOUNTER → 2020-01-20 15:11 | Outpatient (CLI) | payer MEDICAID, SELFPAY ==
[2020-01-20 14:06] VITALS: BMI 23.6
[2020-01-20 16:38] LABS: Anion Gap 6 (5-15); BUN 15 mg/dL (7-18); BUN/Creat Ratio 24.4 RATIO (10-20); Calcium,Total 9.6 mg/dL (8.5-10.1); Chloride 107 mmol/L (98-107); Creatinine, Serum 0.62 mg/dL (0.55-1.02); EST Glomerular Filtration Rate 124 mL/min (>60); Est Glom Filt Rate - Afr Amer 150 mL/min (>60); Glucose 79 mg/dL (74-106); Sodium Level 137 mmol/L (136-145)
== END ==
PROVIDERS: Referring Provider Nurse Practitioner Family; Visit Provider Nurse Practitioner Family
DX: I07.9 Rheumatic tricuspid valve disease, unspecified (principal); R00.2 Palpitations
CPT/HCPCS: 36415; 80048; 87040

== ENCOUNTER → 2020-01-21 13:57 | Outpatient (CLI) | payer MEDICAID, SELFPAY ==
[2020-01-20 14:06] VITALS: BMI 23.6
== END ==
PROVIDERS: Referring Provider Nurse Practitioner Family; Visit Provider Nurse Practitioner Family
DX: R00.2 Palpitations (principal)
CPT/HCPCS: 93225; 93226

== ENCOUNTER → 2020-02-02 14:04 | Outpatient (CLI) | payer MEDICAID, SELFPAY ==
[2020-01-20 14:06] VITALS: BMI 23.6
--- NOTE | 2020-02-02 14:06 | ECHOD_ITS ---
Reason For Study: ENDOCARDITIS Procedure This was a 2D Doppler, Color Flow transthoracic echocardiogram. Exam performed in department. Left Ventricle Normal size and thickness. The estimated ejection fraction is 65 %. Normal diastology for age. No regional wall motion abnormalities noted. Right Ventricle Mildly dilated right ventricle. Normal systolic function. Atria Normal left atrium. Normal right atrium. Normal atrial septum. Mitral Valve The mitral valve is structurally normal. No prolapse or stenosis seen. Tricuspid Valve Mild focal thickening of the tricuspid valve. Moderately severe (3+) eccentric tricuspid valve insufficiency. Right ventricular systolic pressure estimated to be 38 mmHg. Mild pulmonary hypertension. Aortic Valve Normal aortic valve. Trisinus/trileaflet aortic valve. Pulmonic Valve Normal pulmonic valve. Great Vessels Normal aortic root. Normal arch. Normal inferior vena cava. Inferior vena cava collapse with sniff. Pericardium/Pleural No pericardial effusion. MMode/2D Measurements & Calculations LVIDd: 3.5 cm IVSd: 0.82 cm Ao root diam: 2.5 cm LVIDs: 2.5 cm LVPWd: 0.90 cm RVDd: 3.6 cm FS: 27.7 % LAV(MOD-bp): 35.3 ml EDV(MOD-sp4): 67.6 ml EDV(MOD-sp2): 82.5 ml LAV(MOD-bp) Indexed: 21.6 ml/m2 ESV(MOD-sp4): 25.5 ml EF(MOD-sp2): 63.2 % LAV(MOD-sp2): 32.6 ml EF(MOD-sp4): 62.3 % LAV(MOD-sp4): 31.6 ml SV(MOD-sp4): 42.1 ml SV(MOD-sp2): 52.1 ml LA A4 area: 15.0 cm2 LA dimension(2D): 2.9 cm RA A4 area: 15.8 cm2 Time Measurements MV dec time: 0.13 sec Doppler Measurements & Calculations MV E max onur: 88.5 cm/sec Lat Peak E' Onur: 19.3 cm/sec Med Peak E' Onur: 11.9 cm/sec MV A max onur: 77.2 cm/sec E/E' lat: 4.6 E/E' med: 7.5 MV E/A: 1.1 Ao V2 max: 136.8 cm/sec LV V1 max: 127.7 cm/sec PA V2 max: 105.7 cm/sec Ao max P.5 mmHg LV V1 max P.5 mmHg TR max onur: 285.6 cm/sec TR max P.6 mmHg Interpretation Summary The estimated ejection fraction is 65 %. Normal diastology for age. Mildly dilated right ventricle. Moderately severe (3+) eccentric tricuspid valve insufficiency. Right ventricular systolic pressure estimated to be 38 mmHg. Mild pulmonary hypertension. Mild focal thickening of the tricuspid valve. Compared to echo report dated 08/31/2015, LV function appears to be the same, but RVSP is increased from 21 to 38 mmHg. Patient's tricuspid regurgitation has gone from mild to moderately severe. There is no evidence of a mass or vegetation. This does not rule out endocarditis. Ordering Physician: Matthew Holly/Jared Lozano Referring Physician: Matthew Holly Performed By: Adriana Cifuentes, RDCS, RVT
== END ==
PROVIDERS: Referring Provider Nurse Practitioner Family; Visit Provider Nurse Practitioner Family
DX: I07.9 Rheumatic tricuspid valve disease, unspecified (principal); I38 Endocarditis, valve unspecified; R00.2 Palpitations
CPT/HCPCS: 93306

== ENCOUNTER → 2020-02-23 16:45 | Outpatient (CLI) | payer MEDICAID, SELFPAY ==
[2020-02-11 15:34] VITALS: BMI 23.6
[2020-02-23 18:55] LABS: HIV - WCH Non-Reactive (Nonreactive); Hepatitis B Surface Antibody Reactive; Hepatitis B Surface Antigen Non-Reactive (Nonreactive)
[2020-02-25 02:00] LABS: Rapid Plasmin Reagin (RPR) NONREACTIVE (NONREACTIVE)
[2020-02-26 12:08] LABS: HCV Quant. RNA PCR HCV Not Detected IU/mL (.)
== END ==
PROVIDERS: PCP Internal Medicine; Visit Provider Obstetrics & Gynecology
DX: Z12.4 Encounter for screening for malignant neoplasm of cervix (principal); Z11.3 Encounter for screening for infections with a predominantly sexual mode of transmission; B19.20 Unspecified viral hepatitis C without hepatic coma
CPT/HCPCS: 36415; 86592; 86703; 86706; 87340; 87522

== ENCOUNTER 2020-03-16 14:23 | Inpatient (IN) | payer MEDICAID, SELFPAY ==
[2020-02-11 15:34] VITALS: BMI 23.6
[2020-03-16] VITALS (19 sets, daily range): BP systolic 84–118; BP diastolic 54–67; PULSE 65–124; RESP 14–22; TEMP 36.7–40.3; O2SAT 95–100; BMI 23.3; BMI 24.1
--- NOTE | 2020-03-16 14:57 | EKG12_ITS ---
Test Reason : Blood Pressure : / mmHG Vent. Rate : 115 BPM Atrial Rate : 115 BPM P-R Int : 202 ms QRS Dur : 082 ms QT Int : 312 ms P-R-T Axes : 036 017 044 degrees QTc Int : 431 ms Sinus tachycardia Right atrial enlargement Borderline ECG Confirmed by MARIANA MCQUEEN, GRETCHEN ([id number]), editor & co founder CATHY ANDRADE ([id number]) on 03/21/2020 11:05:55 AM Referred By: GINA Confirmed By:GRETCHEN PEÑA MD
--- NOTE | 2020-03-16 14:57 | RAD_ITS ---
STUDY: X-RAY CHEST REASON FOR EXAM: Female, 24 years old. Fever, shortness of breath, cough. TECHNIQUE: Single AP portable view of the chest. COMPARISON: 11/19/2014 FINDINGS: Embolization coils throughout the right hemithorax along the course of the right internal mammary artery and some intercostal arteries. The lungs are clear and expanded. There is no demonstrated pleural abnormality. Normal size heart. Normal mediastinum and meg. Normal visualized pulmonary arteries. Normal visualized aortic arch and descending thoracic aorta. Normal visualized thoracic spine. Normal visualized ribs, clavicles, and shoulders. There is no demonstrated abnormality of the visualized soft tissue structures of the upper abdomen. RAD/Chest 1 View (Portable) IMPRESSION: No active disease. Electronically Signed: Jun Santos MD at 16:12 EDT Tel , Service support ,
[2020-03-16] MEDS: Ceftriaxone 1 GM/50 ML BAG IV (15:21)
[2020-03-16 15:25] LABS: Absolute Neutrophil Count 6.9 X10^3/uL (2.0-7.7); Basophil# 0.02 X10^3/uL; Basophil% 0.2 % (0-1); Eosinophil# 0.04 X10^3/uL; Eosinophils% 0.5 % (0-5); Hematocrit 38.3 % (37-47); Hemoglobin 12.3 g/dL (12.0-15.0); Lymphocyte % 6.1 % (19-41); Mean Corp Hgb Conc 32.1 g/dL (32-36); Mean Corpuscular Hgb 29.8 pg (27.0-32.0); Mean Corpuscular Volume 92.7 fL (81-99); Mean Platelet Vol. 10.5 fl (6.2-12.0); Monocyte# 0.69 X10^3/uL; Monocyte% 8.5 % (0-10); NRBC Flagged by Analyzer 0 % (0-5); Neutrophil # 6.87 X10^3/uL (2.7-7.7); Neutrophil % 84.5 % (47-70); POSITIVE DIFFERENTIAL YES; Platelet Count 185 K/mm3 (150-450); RBC Distribution Width CV 13.1 % (11.6-14.6); Red Blood Count 4.13 M/mm3 (4.2-5.4); White Blood Count 8.1 K/mm3 (4.4-11.0)
[2020-03-16 15:31] LABS: Differential Indicated SCAN CRITERIA MET
[2020-03-16 15:32] LABS: International Normalized Ratio 1.3; Prothrombin Time (Protime)PT. 15.6 SECONDS (11.7-14.9)
[2020-03-16 15:38] LABS: Mucous, Urine 0 SEEN /hpf (<or=2+); Squamous Epithelial Cells - UA 0 SEEN /hpf (5-10)
[2020-03-16 15:40] LABS: Color, Urine Yellow (Yellow); Glucose, Dipstick Normal (Normal); Ketone-Dipstick 5 mg/dl (Negative); Leukocyte Esterase-Dipstick 500 /ul (Negative); Nitrite-Dipstick Negative (Negative); Occult Blood-Urine 250 /ul (Negative); Protein-Dipstick 100 mg/dl (Negative); Urine Clarity Cloudy (Clear); Urine Urobilinogen 1 mg/dl (Normal)
[2020-03-16 15:51] LABS: ALB/GLOB Ratio 0.9 RATIO (0.9-2.4); AST(SGOT) 54 U/L (15-37); Alanine Aminotransfer ALT/SGPT 68 U/L (13-56); Albumin, Serum 3.6 g/dL (3.2-5.0); Alkaline Phosphatase 112 U/L (45-117); Anion Gap 8 (5-15); BUN 11 mg/dL (7-18); Calcium,Total 8.5 mg/dL (8.5-10.1); Chloride 106 mmol/L (98-107); Creatinine, Serum 0.84 mg/dL (0.55-1.02); EST Glomerular Filtration Rate 86 mL/min (>60); Est Glom Filt Rate - Afr Amer 104 mL/min (>60); Estimated Creatinine Clearance 83.95 ml/min; Globulin 4.1 g/dL (2.2-4.2); Glucose 148 mg/dL (74-106); Platelet Estimate ADEQUATE (ADEQ); Potassium 3.5 mmol/L (3.5-5.1); Protein, Total 7.7 g/dL (6.4-8.2); Red Cell Morphology NORM C+C NORMAL (NORM C&C); Sodium Level 136 mmol/L (136-145)
[2020-03-16 16:00] LABS: Lactic Acid 2.5 mmol/L (0.4-1.9)
[2020-03-16 16:03] LABS: Urine Bilirubin Dipstick 1 mg/dL (Negative)
[2020-03-16 16:05] LABS: Bacteria 3+ /hpf (None Seen); Red Blood Cells-Urine 50-100 SEEN /hpf (0-5); White Blood Cells 50-100 SEEN /hpf (0-5)
--- NOTE | 2020-03-16 16:26 | ED.VISSUMM ---
- ER Visit Summary Date of Service: 03/16/20 Chief Complaint: Fever History of Present Illness: The patient is a 24 F with no primary care physician. 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 States she is been clean for 5 months. However, she relapsed 4 days ago and has been using IV fentanyl again. She states she has a fever that began today. Is been 104.6 degrees at highest. Patient denies sore throat. She denies cough or difficulty breathing. She reports she has a stabbing pain posterior to her sternum that is 3 of 10 severity. She reports she has been nauseated and vomited 4 times today. No blood in her emesis. She had onset of diarrhea today. No blood in her stools or black tarry stools. No dysuria or frequency. On her period now. She complains of headache is 5-10 in severity. Patient reports her last use of fentanyl was approximately 4 hours ago. She has not used meth for 5 months. Physical Examination: Vitals: 104.5, 109/66, 124, 18, 95% room air which not hypoxic. General: Well-nourished and well-developed. Head: Normocephalic atraumatic. Neck: Supple, no lymphadenopathy. No JVD. Nontender. Cardiovascular: Tachycardic regular rhythm with a 2 out of 6 systolic murmur. Respiratory: No respiratory distress. Clear to auscultation bilaterally. Abdominal: Soft, nontender, nondistended, normal bowel sounds. No guarding, rebound, or peritoneal signs. Back: Nontender. Extremities: Nontender, no edema. Skin: Track apodaca to the back of her hands bilaterally. To the area in between her second and third metacarpals there is slight erythema and soft tissue swelling. There is no induration or fluctuance to suggest abscess.. Neurologic: Alert and oriented ?3. Cranial nerves II through XII are intact. Normal strength and sensation. Psych: Normal affect. Test Results: EKG sinus tach [address] changes. Troponin is negative. UA shows 50-100 white blood cells and red blood cells with 3+ bacteria. This was sent for culture. LFTs show an ALT of 68 and AST of 54. INR is 1.3. PTT is 20.0. Chem-7 shows a glucose 148. CBC shows a segmented neutrophils of 85 and lymphocytes of 6. Lactic acid is 2.5. Chest x-ray shows no acute disease. Emergency Department Course and Treatment: Patient had an IV placed. She was given Rocephin IV and vancomycin IV. She got a 30 cc/kg bolus of normal saline. Her mean arterial pressures remained over 65. Sepsis re-evaluation was performed. Treatment Plan: The patient was discussed with Dr. Arroyo. She will be admitted to the hospital for further evaluation treatment. Disposition: Improved condition Impression: 1. Severe sepsis. 2. Pyelonephritis. 3. IV drug abuse. 4. History of endocarditis. 5. Critical care time 30 minutes. This note was generated with [employer] dictation software. It may contain incorrect words, spelling, and punctuation that were not noted in review of the chart prior to signing ED Disposition - Plan for ED Patient: Referrals: Care Physician,No Primary [Primary Care Provider] -
[2020-03-16] MEDS: Vancomycin IV 1,000 MG/200 ML BAG 200 MG IV (16:36)
--- NOTE | 2020-03-16 16:47 | NURSING ---
PCU SEVERE SEPSIS, UTI KORAM
--- NOTE | 2020-03-16 16:54 | HP.PCM_ITS ---
History of Present Illness Date of Admission: 03/16/20 Chief Complaint: FEVER The patient is a 24 year old F with an extensive past medical history as outlined which includes IV substance abuse, history of infective endocarditis and septic emboli as well as tricuspid regurgitation. Showed pulmonary through the ED on 03/16/2020 with a complaint of fever which she notes is just 1 day ago. Patient states that she has been clean for about 5 months but subsequently started using IV drugs a few days ago. She last used IV fentanyl and heroin at about 11 AM on day of admission. She admitted to burning with urination but denied any cough, shortness of breath, chest pain, palpitations, dizziness, abdominal pain but did admit to diarrhea. Review of symptoms otherwise negative. She denies exposure to anybody with COVID and denies any respiratory symptoms. Vitals in the ED showed Temperature of 99.6F, with WA of 102F, RR of 20 and BP of 103/62. Chemistry showed sodium of 136 with potassium of 3.5 and lactic acid of 2.5. Initial troponin was negative. CBC showed hemoglobin of 12.3 with WBC of 8.1 and platelets of 185. Chest x-ray showed no acute cardiopulmonary process. UA showed 3+ bacteria and 500 leukocyte esterase with 5200 of WBCs. Covid test was pending. He has been admitted to be managed for sepsis due to UTI. [] Past Medical History Past Medical History (Chronic Problems): Chronic Problems (Last Updated 02/11/20 @ 15:10 by Francis Spears) s/p coil embolization of bronchial and intercostal arteries (Chronic 08/27/19) [facility] [place]: Right upper lobe History of bronchoscopy (Chronic 08/25/19) History of pelvic inflammatory disease (Chronic) Septic pulmonary embolism (Chronic) Antepartum anemia (Chronic) Status post insertion of percutaneous endoscopic gastrostomy (PEG) tube (Chronic) History of tracheostomy (Chronic) History of herpes genitalis (Chronic) History of incarceration (Chronic) History of heroin abuse (Chronic) 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) Hepatitis C (Chronic) History of cor pulmonale (Chronic) History of pulmonary embolism (Chronic) 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) IVDU (intravenous drug user) (Chronic) Bipolar 1 disorder (Chronic) Medical History: Medical History (Last Updated 06/11/20 @ 15:10 by Francis Spears) History of pelvic inflammatory disease (Chronic) Z87.42 Septic pulmonary embolism (Chronic) I26.90 Antepartum anemia (Chronic) O99.019 Tobacco use during , antepartum (Inactive) O99.330 History of herpes genitalis (Chronic) Z86.19 History of incarceration (Chronic) Z78.9 History of heroin abuse (Chronic) F11.11 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) I33.0, B95.61 Hepatitis C (Chronic) B19.20 History of cor pulmonale (Chronic) Z86.79 History of pulmonary embolism (Chronic) Z86.711 Endocarditis of tricuspid valve (Chronic) I07.9 Pulmonary artery aneurysm (Chronic) I28.1 IVDU (intravenous drug user) (Chronic) F19.90 Bipolar 1 disorder (Chronic) F31.9 H/O emotional problems F48.9 Heart murmur R01.1 Hemorrhoids K64.9 History of MRSA infection Z86.14 History of alcohol abuse F10.11 History of blood clots Z86.718 History of cardiac arrest Z86.74 History of drug abuse F19.11 History of endocarditis Z86.79 History of pneumonia Z87.01 Incontinence R32 Migraines G43.909 Allergies No Known Allergies Allergy (Verified 03/16/20 14:42) Home Medications: Ambulatory Orders Medication Instructions Recorded Diltiazem HCl [Cardizem Cd] 120 mg PO DAILY 03/16/20 Quetiapine Fumarate [Quetiapine 150 mg PO DAILY 03/16/20 Fumarate ER] Valacyclovir HCl [Valacyclovir] 500 mg PO DAILY 03/16/20 Surgical History: Surgical History (Last Reviewed 11/30/19 @ 18:33 by Lucy Whittaker) s/p coil embolization of bronchial and intercostal arteries (Chronic) Onset Da te: 08/27/19 [facility] [place]: Right upper lobe History of bronchoscopy (Chronic) Onset Date: 08/25/19 Z98.890 Status post insertion of percutaneous endoscopic gastrostomy (PEG) tube (Chronic) Z93.1 History of tracheostomy (Chronic) Z98.890 Surgical History: no surgical history Psychiatric History: Bipolar MANAGED CARE LIAISON History: No pertinent MANAGED CARE LIAISON history Smoking Status: Current every day smoker Tobacco Use: Cigarettes - *Family History Paternal Family History: Family History (Last Reviewed 11/30/19 @ 18:33 by Lucy Whittaker) Mother Bipolar 1 disorder Depression Anxiety Suicide STD (female) drug addiciton Grandmother Breast cancer Arthritis Sister Depression Father Alcoholism Other Thyroid disorder History Items: No pertinent history Maternal Family History: Family History (Last Reviewed 11/30/19 @ 18:33 by Lucy Whittaker) Mother Bipolar 1 disorder Depression Anxiety Suicide STD (female) drug addiciton Grandmother Breast cancer Arthritis Sister Depression Father Alcoholism Other Thyroid disorder History Items: No pertinent history Review of Systems Constitutional: Reports: Chills, Fever. Denies: Anorexia, Malaise, Weakness, Fatigue Eyes: Denies: Blurred vision HEENT: Denies: Head Aches, Sinus Congestion, Sinus Drainage Cardiovascular: Denies: Chest Pain, Palpitations Respiratory: Denies: Cough, Shortness of Breath, Shortness of breath at rest, Shortness of breath upon exertion, Sputum production Gastrointestinal: Denies: Abdominal Pain, Nausea, Vomiting Genitourinary: Reports: Dysuria, Frequency. Denies: Incontinence, Retention, Urgency Musculoskeletal: Denies: Joint Pain, Joint Tenderness Skin: Denies: Rash, Wounds Neurological: Denies: Numbness, Tingling, Focal weakness Psychiatric: Denies: Anxiety, Depression, Homicidal Ideations, Suicidal Ideations Hematologic/ Lymphatic: Denies: Easy Bruising, Easy Bleeding VTE Information - Inpt Only VTE Present on Admission: No VTE Pharm Prophylaxis ordered?: Yes Patient Problems: Active and Suspected Problems (Last Updated 02/11/20 @ 15:10 by Francis Spears) Fever (Acute) - Physical Exam Vitals/I&O's: Vital Signs Temp Pulse Resp BP Pulse Ox 99.6 F H 102 H 20 H 103/62 97 03/16/20 16:38 03/16/20 16:38 03/16/20 16:38 03/16/20 16:38 03/16/20 16:38 Oxygen Delivery Method Room Air Weight: 131 lb 6.328 oz Body Mass Index (BMI) 23.3 Finger Stick Blood Glucose 377 Intake and Output for Last 24 Hours 03/14/20 03/15/20 03/16/20 23:59 23:59 23:59 Intake Total 550 / 550 Balance 550 / 550 General: Alert, Oriented x3, Cooperative, No apparent distress HEENT: Atraumatic, PERRLA, EOMI, Normocephalic Oral: Dry Mucosa Neck: Supple, No JVD, Negative Carotid Bruits Lungs: Clear to auscultation, Normal air movement, No rhonchi, No wheeze, No rales Cardiovascular: Regular rate, Regular Rhythm, Normal S1, Normal S2, - - grade 3 systolic murmur in the tricuspid and pulmonary regions Abdomen: Bowel Sounds Present, Soft, Non Tender, Non-Distended, No Hepato- splenomegaly Extremities: No edema, Capillary Refill Less than 3 Seconds Skin: - - track [place] over Upper extremities; has soft 5 x 4cm swelling over the dorsum of hte left hand, over the thumb area, which is mildly tender and has differential warmth as well as erythema Laboratory Results 03/16/20 15:07: WBC 8.1, RBC 4.13 L, Hgb 12.3, Hct 38.3, MCV 92.7, MCH 29.8, MCHC 32.1, RDW Std Deviation 44.0 H, RDW Coeff of Ashley 13.1, Plt Count 185, MPV 10.5, Immature Gran % (Auto) 0.200, Neut % (Auto) 84.5 H, Lymph % (Auto) 6.1 L, [place] % (Auto) 8.5, Eos % (Auto) 0.5, Baso % (Auto) 0.2, Absolute Neuts (auto) 6.9, Absolute Lymphs (auto) 0.50 L, Nucleated RBC % 0, Differential Comment , Platelet Estimate ADEQUATE, RBC Morphology NORM C+C 03/16/20 15:07: PT 15.6 H, INR 1.3, APTT 28.0 03/16/20 15:07: Sodium 136, Potassium 3.5, Chloride 106, Carbon Dioxide 22.0, Anion Gap 8, BUN 11, Creatinine 0.84, Estim Creat Clear Calc 83.95, Est GFR (MDRD) Af Amer 104, Est GFR (MDRD) Non-Af 86, BUN/Creatinine Ratio 13.0, Glucose 148 H, Calcium 8.5, Total Bilirubin 0.60, AST 54 H, ALT 68 H, Alkaline Phosphatase 112, Troponin I < 0.015, Total Protein 7.7, Albumin 3.6, Globulin 4.1, Albumin/Globulin Ratio 0.9 03/16/20 15:07: Lactic Acid 2.5 H* 03/16/20 15:17: COVID-19 (JOSE) Pending 03/16/20 15:26: Urine Color Yellow, Urine Clarity Cloudy, Urine pH 6.0, Ur Specific [place] 1.020, Urine Protein 100 H, Urine Glucose (UA) Normal, Urine Ketones 5 H, Urine Occult Blood 250 H, Urine Nitrite Negative, Urine Bilirubin 1 H, Urine Urobilinogen 1 H, Ur Leukocyte Esterase 500 H, Urine RBC 50-100 SEEN, Urine WBC 50-100 SEEN, Ur Squamous Epith Cells 0 SEEN, Urine Bacteria 3+, Urine Mucus 0 SEEN Assessment/Plan All Active Problems (Last Updated 02/11/20 @ 15:10 by Francis Spears) Fever (Acute) 35 weeks gestation of (Resolved) Cellulitis of arm, right (Resolved) Cellulitis of external ear, bilateral (Resolved) Decreased movement (Resolved) Sprain of foot, left (Resolved) 24 y/o admitted with a complaint of fever 1. Sepsis due to UTI * Admit to PCU with telemetry. * SIRS criteria is 2/4 with tachypnea and tachycardia. WBC is only 8.1, temperature is 99.6 ?F still at time of presentation was 104.5. * UA showed evidence of UTI. * Start patient on IV Zosyn as well as IV vancomycin as she says she has a history of MRSA and has cellulitis on her left upper extremity which could also be source of sepsis. * Blood cultures and urine cultures ordered and pending. * Hydrated with IV fluid normal saline * Tylenol as needed for fever. COVID test pending. * 2. UTI: as under 1 3. Cellulitis of LUE: as under 1 4. History of tricuspid regurgitation * 2D echo(02/02/2020): EF of 65% with normal diastolic for age and mildly dilated right ventricle as well as moderately severe 3+ tricuspid valve insufficiency with RVSP of 38 mmHg and mild pulmonary hypertension. * This likely due to her previous issues of infective endocarditis. * Will monitor for now. * 5. History of IV opiate abuse * Use IV fentanyl and heroin at 11 AM on day of admission. * Start opiate withdrawal protocol with buprenorphine. * Monitor CINA score. 6. Bipolar disorder: On Seroquel DVT prophylaxis: lovenox Code status; full code * Patient counseled extensively about different types of CODE STATUS including full code, DNR CCA and DNR CCA. Patient elects to be full code. Total [id number] time 16 minutes. Inpatient E&M: 68865 Init Hosp L3 Procedures: 17928 Advncd Care Plan 30 Min
[2020-03-16] MEDS: 0.9% Normal Saline 1,000 ML 999 ML IV (17:17)
[2020-03-16] MEDS: 0.9% Normal Saline 1,000 ML 150 ML IV (18:47)
--- NOTE | 2020-03-16 19:14 | PCM.RX.CS ---
Consult Pharmacy has been consulted to manage selected antiobiotic: Vancomycin Type of Consult: New start Suspected Infection: Sepsis Labs: Sodium 136 mmol/L (136-145) 03/16/20 15:07 Potassium 3.5 mmol/L (3.5-5.1) 03/16/20 15:07 Chloride 106 mmol/L (98-107) 03/16/20 15:07 Carbon Dioxide 22.0 mmol/L (21.0-32.0) 03/16/20 15:07 Anion Gap 8 (5-15) 03/16/20 15:07 BUN 11 mg/dL (7-18) 03/16/20 15:07 Creatinine 0.84 mg/dL (0.55-1.02) 03/16/20 15:07 Est GFR (MDRD) Af Amer 104 mL/min (>60) 03/16/20 15:07 Est GFR (MDRD) Non-Af 86 mL/min (>60) 03/16/20 15:07 BUN/Creatinine Ratio 13.0 RATIO (10-20) 03/16/20 15:07 Glucose 148 mg/dL (74-106) H 03/16/20 15:07 Goal Trough: 15-20 mcg/mL Pharmacy Plan for Drug Dosing: NEW START IV VANCOMYCIN Consulting Physician: Dr. Arroyo Indication: Sepsis/UTI Goal Trough:15-20 SrCr:0.84 CrCl:83 Comments: loading dose was initially ordered in ER for 1gm. Rather than giving supplemental dose will start scheduled dosing regimen in 8 hours instead of 12 hours from initial dose Vancomcyin Dose:1000mg Q12 IV to start at 0100 03/17/20 Pending Level: 0030 on 03/18/20 Pharmacy Service will continue to monitor and adjust dosing as required.
[2020-03-16 19:15] LABS: Reflex Lactate? Y
[2020-03-16] MEDS: Acetaminophen 325 MG Tablet 650 MG PO (20:02)
--- NOTE | 2020-03-16 23:24 | NURSING ---
PC from pt's stepmother, Crystal Caro. Pt gave verbal permission to share updates with step mom. Step mom updated about pt's UTI and medical treatment. Crystal asked multiple times about pt's drug use stating that she has heard multiple stories from multiple people that pt was in a drug program and then kicked out, and not sure what is going on. Advised Crystal that she should speak to the pt directly regarding drug use, as this nurse cannot speak to pt being in or out of drug rehab program. Call transferred back to pt's room. Otis FINN
[2020-03-17] VITALS (21 sets, daily range): BP systolic 78–108; BP diastolic 57–81; PULSE 58–82; RESP 12–18; TEMP 36.6–37; O2SAT 98–100
[2020-03-17] MEDS: 0.9% Normal Saline 1,000 ML 999 ML IV (00:13)
[2020-03-17] MEDS: Vancomycin IV 1,000 MG/200 ML BAG 200 MG IV ×2 (01:28→13:35)
[2020-03-17] MEDS: 0.9% Normal Saline 1,000 ML 150 ML IV (01:30)
[2020-03-17 06:04] LABS: Absolute Lymphocyte Count 1.93 X10^3/uL (0.83-4.51); Absolute Neutrophil Count 1.6 X10^3/uL (2.0-7.7); Basophil# 0.02 X10^3/uL; Basophil% 0.4 % (0-1); Eosinophil# 0.16 X10^3/uL; Eosinophils% 3.5 % (0-5); Hematocrit 34.3 % (37-47); Hemoglobin 10.7 g/dL (12.0-15.0); Lymphocyte # 1.93 X10^3/ul (4.0); Lymphocyte % 42.8 % (19-41); Mean Corp Hgb Conc 31.2 g/dL (32-36); Mean Corpuscular Hgb 29.7 pg (27.0-32.0); Mean Corpuscular Volume 95.3 fL (81-99); Mean Platelet Vol. 10.6 fl (6.2-12.0); Monocyte# 0.84 X10^3/uL; Monocyte% 18.6 % (0-10); NRBC Flagged by Analyzer 0 % (0-5); Neutrophil # 1.55 X10^3/uL (2.7-7.7); Neutrophil % 34.5 % (47-70); Platelet Count 170 K/mm3 (150-450); RBC Distribution Width CV 13.2 % (11.6-14.6); RBC Distribution Width SD 45.2 fl (35.1-43.9); White Blood Count 4.5 K/mm3 (4.4-11.0)
[2020-03-17 06:42] LABS: Anion Gap 4 (5-15); BUN 8 mg/dL (7-18); BUN/Creat Ratio 15.3 RATIO (10-20); Calcium,Total 7.9 mg/dL (8.5-10.1); Chloride 115 mmol/L (98-107); Creatinine, Serum 0.52 mg/dL (0.55-1.02); EST Glomerular Filtration Rate 149 mL/min (>60); Est Glom Filt Rate - Afr Amer 181 mL/min (>60); Estimated Creatinine Clearance 135.62 ml/min; Glucose 92 mg/dL (74-106); Potassium 3.9 mmol/L (3.5-5.1); Sodium Level 142 mmol/L (136-145)
--- NOTE | 2020-03-17 08:02 | US_ITS ---
STUDY: RENAL ULTRASOUND - COMPLETE REASON FOR EXAM: Female, 24 years old. COMPLICATED UTI TECHNIQUE: Ultrasound evaluation of the kidneys was performed with real-time and static blue-scale imaging. COMPARISON: None. FINDINGS: RIGHT KIDNEY: Normal location of the right kidney, which is normal in size. The right kidney measures 10.8 cm. There is a normal cortex of the right kidney. The renal cortex measures 1.0 cm. There is no right renal mass or cyst. There are no right renal calculi. There is no right hydronephrosis. DISTAL RIGHT URETER: There is non-visualization of the distal right ureter. There is no demonstrated right ureterovesical junction calculus. There is a visualized right ureteral jet. LEFT KIDNEY: Normal location of the left kidney, which is normal in size. The left kidney measures 11.9 cm. There is a normal cortex of the left kidney. The renal cortex measures 1.3 cm. 3.3 cm hypoechoic mass in the midsection of the left kidney and correlation with the renal mass protocol CT or MRI is recommended. There are no left renal calculi. There is no left hydronephrosis. DISTAL LEFT URETER: There is non-visualization of the distal left ureter. There is no demonstrated left ureterovesical junction calculus. There is a visualized left ureteral jet. BLADDER: The distended urinary bladder has a volume of 146 ml. The empty urinary bladder has a volume of ml. There is a normal wall thickness of the distended urinary bladder. There is no demonstrated mass within the urinary bladder. There are no demonstrated bladder calculi. US/Kidney and Bladder IMPRESSION: 3.3 cm mass in the midsection left kidney and correlation with renal mass pedicle CT or MRI is recommended. Electronically Signed: Jun Santos MD at 10:36 EDT Tel , Service support ,
--- NOTE | 2020-03-17 10:23 | PCM.HP.ID ---
Problem List (1) Fever Status: Acute Reason for Consult: fever Consulted by: Dr. Siegel History of Present Illness: The patient is a 24 year old F with active IVDU, last used fentanyl yesterday, had long admission 06/2019-09/2019 at [facility] and then [place] for MRSA tricuspid endocarditis. Reports she will need valve repair at some point. Recently relapsed and restarted iv drug. Denies any rash or abscess. Had sudden onset fever, mild headache, n/v/d yesterday. Had some mild epigastric abd pain. No dysuria, no change in urination. Has IUD in place. Does share needles, h/o hep C which cleared without treatment. Last hiv neg 02/23/20. No sick contacts, no change in taste/smell, no aches, no cough or chest pain. Came to ED, fever to 104.5, started on vanc/zosyn. Feeling much better today. Full ROS performed and neg except as noted above. - Medical History Past Medical History (Chronic Problems): Chronic Problems (Last Updated 02/11/20 @ 15:10 by Francis Spears) s/p coil embolization of bronchial and intercostal arteries (Chronic 08/27/19) [facility] [place]: Right upper lobe History of bronchoscopy (Chronic 08/25/19) History of pelvic inflammatory disease (Chronic) Septic pulmonary embolism (Chronic) Antepartum anemia (Chronic) Status post insertion of percutaneous endoscopic gastrostomy (PEG) tube (Chronic) History of tracheostomy (Chronic) History of herpes genitalis (Chronic) History of incarceration (Chronic) History of heroin abuse (Chronic) 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) Hepatitis C (Chronic) History of cor pulmonale (Chronic) History of pulmonary embolism (Chronic) 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) IVDU (intravenous drug user) (Chronic) Bipolar 1 disorder (Chronic) Allergies/Adverse Reactions: Allergies No Known Allergies Allergy (Verified 03/16/20 14:42) Home Medications: Ambulatory Orders Medication Instructions Recorded Diltiazem HCl [Cardizem Cd] 120 mg PO DAILY 03/16/20 Quetiapine Fumarate [Quetiapine 150 mg PO DAILY 03/16/20 Fumarate ER] Valacyclovir HCl [Valacyclovir] 500 mg PO DAILY 03/16/20 - Social History SMOKING STATUS:: Current every day smoker Drug Use: heroin Vital Signs Temp Pulse Resp BP Pulse Ox 97.8 F 76 16 85/61 L 100 03/17/20 08:30 03/17/20 08:30 03/17/20 08:30 03/17/20 08:30 03/17/20 08:30 Oxygen Delivery Method Room Air Weight: 61.8 kg Body Mass Index (BMI) 24.1 Finger Stick Blood Glucose 377 Laboratory Tests Past 24 Hrs 03/16/20 03/16/20 03/16/20 15:07 15:07 15:07 WBC 8.1 RBC 4.13 L Hgb 12.3 Hct 38.3 MCV 92.7 MCH 29.8 MCHC 32.1 RDW Std Deviation 44.0 H RDW Coeff of Ashley 13.1 Plt Count 185 MPV 10.5 Immature Gran % (Auto) 0.200 Neut % (Auto) 84.5 H Lymph % (Auto) 6.1 L [place] % (Auto) 8.5 Eos % (Auto) 0.5 Baso % (Auto) 0.2 Absolute Neuts (auto) 6.9 Absolute Lymphs (auto) 0.50 L Nucleated RBC % 0 Differential Comment Platelet Estimate ADEQUATE RBC Morphology NORM C+C PT 15.6 H INR 1.3 APTT 28.0 Sodium 136 Potassium 3.5 Chloride 106 Carbon Dioxide 22.0 Anion Gap 8 BUN 11 Creatinine 0.84 Estim Creat Clear Calc 83.95 Est GFR (MDRD) Af Amer 104 Est GFR (MDRD) Non-Af 86 BUN/Creatinine Ratio 13.0 Glucose 148 H Lactic Acid Calcium 8.5 Total Bilirubin 0.60 AST 54 H ALT 68 H Alkaline Phosphatase 112 Troponin I < 0.015 Total Protein 7.7 Albumin 3.6 Globulin 4.1 Albumin/Globulin Ratio 0.9 Urine Color Urine Clarity Urine pH Ur Specific [place] Urine Protein Urine Glucose (UA) Urine Ketones Urine Occult Blood Urine Nitrite Urine Bilirubin Urine Urobilinogen Ur Leukocyte Esterase Urine RBC Urine WBC Ur Squamous Epith Cells Urine Bacteria Urine Mucus COVID-19 (JOSE) 03/16/20 03/16/20 03/16/20 15:07 15:17 15:26 WBC RBC Hgb Hct MCV MCH MCHC RDW Std Deviation RDW Coeff of Ashley Plt Count MPV Immature Gran % (Auto) Neut % (Auto) Lymph % (Auto) [place] % (Auto) Eos % (Auto) Baso % (Auto) Absolute Neuts (auto) Absolute Lymphs (auto) Nucleated RBC % Differential Comment Platelet Estimate RBC Morphology PT INR APTT Sodium Potassium Chloride Carbon Dioxide Anion Gap BUN Creatinine Estim Creat Clear Calc Est GFR (MDRD) Af Amer Est GFR (MDRD) Non-Af BUN/Creatinine Ratio Glucose Lactic Acid 2.5 H* Calcium Total Bilirubin AST ALT Alkaline Phosphatase Troponin I Total Protein Albumin Globulin Albumin/Globulin Ratio Urine Color Yellow Urine Clarity Cloudy Urine pH 6.0 Ur Specific [place] 1.020 Urine Protein 100 H Urine Glucose (UA) Normal Urine Ketones 5 H Urine Occult Blood 250 H Urine Nitrite Negative Urine Bilirubin 1 H Urine Urobilinogen 1 H Ur Leukocyte Esterase 500 H Urine RBC 50-100 SEEN Urine WBC 50-100 SEEN Ur Squamous Epith Cells 0 SEEN Urine Bacteria 3+ Urine Mucus 0 SEEN COVID-19 (JOSE) Not Detected 03/16/20 03/17/20 03/17/20 19:45 05:50 05:50 WBC 4.5 RBC 3.60 L Hgb 10.7 L Hct 34.3 L MCV 95.3 MCH 29.7 MCHC 31.2 L RDW Std Deviation 45.2 H RDW Coeff of Ashley 13.2 Plt Count 170 MPV 10.6 Immature Gran % (Auto) 0.200 Neut % (Auto) 34.5 L Lymph % (Auto) 42.8 H [place] % (Auto) 18.6 H Eos % (Auto) 3.5 Baso % (Auto) 0.4 Absolute Neuts (auto) 1.6 L Absolute Lymphs (auto) 1.93 Nucleated RBC % 0 Differential Comment Platelet Estimate RBC Morphology PT INR APTT Sodium 142 Potassium 3.9 Chloride 115 H Carbon Dioxide 23.0 Anion Gap 4 L BUN 8 Creatinine 0.52 L Estim Creat Clear Calc 135.62 Est GFR (MDRD) Af Amer 181 Est GFR (MDRD) Non-Af 149 BUN/Creatinine Ratio 15.3 Glucose 92 Lactic Acid 1.0 Calcium 7.9 L Total Bilirubin AST ALT Alkaline Phosphatase Troponin I Total Protein Albumin Globulin Albumin/Globulin Ratio Urine Color Urine Clarity Urine pH Ur Specific [place] Urine Protein Urine Glucose (UA) Urine Ketones Urine Occult Blood Urine Nitrite Urine Bilirubin Urine Urobilinogen Ur Leukocyte Esterase Urine RBC Urine WBC Ur Squamous Epith Cells Urine Bacteria Urine Mucus COVID-19 (JOSE) - Other Studies Radiology: [] reviewed Other Studies: [] Route of nutrition/ use of supplements: [] Nutritional Intake: [] IV Site: [] Rene Catheter: [] - Physical Exam General: Alert, Oriented x3, Cooperative, No apparent distress HEENT: Atraumatic, PERRLA, EOMI Neck: Supple, No Nodes Lungs: Clear to auscultation, Normal air movement Cardiovascular: Regular rate, Regular Rhythm, Murmur Abdomen: Soft, Non Tender, Non-Distended Extremities: No edema Skin: - - resolved erythema on L hand IV Site: Peripheral, without redness Musculoskeletal: No Tenderness to Palpation of Joints or Extremities Neurological: Cranial nerves II-XII grossly intact - Assessment/Plan Antibiotics: [] Assessment/Plan: [] severe sepsis with IVDU and recent MRSA endocarditis - fever, tachycardia, lactic acidosis. Checking urine preg. Reports iud in place. Bcx and ucx pending. Some pyuria on UA, reported dysuria on H&P but denies currently. Covid neg. Improving on vanc/zosyn, will continue. Recent neg HCV pcr and HIV. Reports sharing needles. Will follow, thank you.
--- NOTE | 2020-03-17 11:34 | CASEMGMT ---
HUMA PEARSON assessment: Face to Face with patient for initial transition planning/care coordination assessment. HUMA PEARSON introduced self and role at [facility], pt voices understanding and consents to assessment at this time. Pt is lying in bed in no distress at this time. Pt is A/Ox4 at this time and answers all questions appropriately at this time. Care providers, pharmacy, and demographics verified at this time. Presentation: Fever, chills, recent endocarditis in 2019, reports fentanyl abuse, last used this morning Admitting dx: Sepsis d/t UTI PCP: [facility] Specialists: Pt states no current specialists. Preferred Pharmacy: [facility] Insurance: [facility] Community plan Prescription Benefit: [facility] Community plan Living Will/HPOA: Pt states no LW/HPOA and declines AD info at this time. LNOK: Brigid Troy, grandmother Living Arrangements: Pt states lives with her sister in a home and states no concerns at home at this time. Pt states is independent with ADL's. Transportation: Pt states drives self and states no transportation concerns at this time. DME/HHC: Pt states no current DME or need for any at this time. Pt states no hx of HHC or SNF at this time. Pt states no concerns with going home at time of discharge. 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 Pt states smokes about 6-8 cigarettes daily and does not drink ETOH. Pt states had been clean from IV fentanyl and heroin for the last 5 months but then recently relapsed. Pt is already involved with [employer], states she already placed a call to them, and plans to f/u with them on 03/21/20. Pt declines for [employer] to be contacted at this time. Nina NELSON aware, voices understanding. Pt voices no further concerns/needs at this time. CM to follow for any further discharge planning/needs. Advised pt to ask for CM if any further questions/concerns/needs arise, voices understanding. Pt Goal: Home Plan: [place] HUMA PEARSON
--- NOTE | 2020-03-17 12:50 | NURSING ---
Natali Noe from [employer] for update. Patient gave verbal consent for same. Natali is updated on patient condition.
[2020-03-17 12:55] LABS: Internal QC Validated? YES +Cl - CLEAR BKGD; Pregnancy, Urine Negative Negative
--- NOTE | 2020-03-17 13:19 | PCM.PROGNOTE ---
<Scarlet Rios - Last Filed: 03/17/20 13:32> Patient Problems: Active and Suspected Problems (Last Updated 02/11/20 @ 15:10 by Francis Spears) Fever (Acute) Subjective: Patient seen and examined. Denies fever, chills. Denies withdrawal symptoms. No complaints at this time. - Physical Exam Vitals/I&O's: Vital Signs Temp Pulse Resp BP Pulse Ox 97.8 F 75 17 103/81 H 100 03/17/20 09:45 03/17/20 09:45 03/17/20 09:45 03/17/20 09:45 03/17/20 09:45 Oxygen Delivery Method Room Air Weight: 136 lb 3.931 oz Body Mass Index (BMI) 24.1 Finger Stick Blood Glucose 377 Intake and Output for Last 24 Hours 03/15/20 03/16/20 03/17/20 23:59 23:59 23:59 Intake Total 2450 / 2450 3365 / 3365 Output Total 0 / 0 Balance 2450 / 2450 3365 / 3365 General: Alert, Oriented x3, Cooperative HEENT: Atraumatic, PERRLA, EOMI, Normocephalic Neck: Supple, No JVD, Negative Carotid Bruits Lungs: Clear to auscultation, Normal air movement Cardiovascular: Regular rate, No murmurs Abdomen: Bowel Sounds Present, Soft, Non Tender Extremities: No edema, Capillary Refill Less than 3 Seconds Skin: No rashes, No breakdown Musculoskeletal: No Tenderness to Palpation of Joints or Extremities Neurological: Cranial nerves II-XII grossly intact, Neuro grossly intact Psych/Mental Status: Normal Affect, Appropriate Microbiology Past 72 Hours 03/16/20 15:26 Urine, Clean Catch Urine Culture - Preliminary Presumptive E. coli Laboratory Results 03/16/20 15:07: WBC 8.1, RBC 4.13 L, Hgb 12.3, Hct 38.3, MCV 92.7, MCH 29.8, MCHC 32.1, RDW Std Deviation 44.0 H, RDW Coeff of Ashley 13.1, Plt Count 185, MPV 10.5, Immature Gran % (Auto) 0.200, Neut % (Auto) 84.5 H, Lymph % (Auto) 6.1 L, [place] % (Auto) 8.5, Eos % (Auto) 0.5, Baso % (Auto) 0.2, Absolute Neuts (auto) 6.9, Absolute Lymphs (auto) 0.50 L, Nucleated RBC % 0, Differential Comment , Platelet Estimate ADEQUATE, RBC Morphology NORM C+C 03/16/20 15:07: PT 15.6 H, INR 1.3, APTT 28.0 03/16/20 15:07: Sodium 136, Potassium 3.5, Chloride 106, Carbon Dioxide 22.0, Anion Gap 8, BUN 11, Creatinine 0.84, Estim Creat Clear Calc 83.95, Est GFR (MDRD) Af Amer 104, Est GFR (MDRD) Non-Af 86, BUN/Creatinine Ratio 13.0, Glucose 148 H, Calcium 8.5, Total Bilirubin 0.60, AST 54 H, ALT 68 H, Alkaline Phosphatase 112, Troponin I < 0.015, Total Protein 7.7, Albumin 3.6, Globulin 4.1, Albumin/Globulin Ratio 0.9 03/16/20 15:07: Lactic Acid 2.5 H* 03/16/20 15:17: COVID-19 (JOSE) Not Detected 03/16/20 15:26: Urine Color Yellow, Urine Clarity Cloudy, Urine pH 6.0, Ur Specific [place] 1.020, Urine Protein 100 H, Urine Glucose (UA) Normal, Urine Ketones 5 H, Urine Occult Blood 250 H, Urine Nitrite Negative, Urine Bilirubin 1 H, Urine Urobilinogen 1 H, Ur Leukocyte Esterase 500 H, Urine RBC 50-100 SEEN, Urine WBC 50-100 SEEN, Ur Squamous Epith Cells 0 SEEN, Urine Bacteria 3+, Urine Mucus 0 SEEN 03/16/20 19:45: Lactic Acid 1.0 03/17/20 05:50: WBC 4.5, RBC 3.60 L, Hgb 10.7 L, Hct 34.3 L, MCV 95.3, MCH 29.7, MCHC 31.2 L, RDW Std Deviation 45.2 H, RDW Coeff of [place] 13.2, Plt Count 170, MPV 10.6, Immature Gran % (Auto) 0.200, Neut % (Auto) 34.5 L, Lymph % (Auto) 42.8 H, [place] % (Auto) 18.6 H, Eos % (Auto) 3.5, Baso % (Auto) 0.4, Absolute Neuts (auto) 1.6 L, Absolute Lymphs (auto) 1.93, Nucleated RBC % 0 03/17/20 05:50: Sodium 142, Potassium 3.9, Chloride 115 H, Carbon Dioxide 23.0, Anion Gap 4 L, BUN 8, Creatinine 0.52 L, Estim Creat Clear Calc 135.62, Est GFR (MDRD) Af Amer 181, Est GFR (MDRD) Non-Af 149, BUN/Creatinine Ratio 15.3, Glucose 92, Calcium 7.9 L 03/17/20 12:28: Urine Test Negative Current Medications Acetaminophen (Tylenol) 650 mg PO Q6H PRN PRN PRN Reason: Pain Score 1-10/Temp > 100.7 F Last Admin: 03/16/20 20:02 Dose: 650 mg Documented by: Al Hydroxide/Mg Hydroxide (Mylanta Ii) 30 ml PO Q6H PRN PRN PRN Reason: dyspesia Bisacodyl (Dulcolax) 10 mg RECTAL DAILY PRN PRN Reason: Constipation Buprenorphine HCl (Buprenorphine Hcl) 0 mg SL Q8H DARRIN; Taper Stop: 03/20/20 00:14 Dextrose (D50w Syringe) 0 gm IV X1 PRN; Protocol PRN Reason: Hypoglycemia Dicyclomine HCl (Bentyl) 20 mg PO Q6H PRN PRN PRN Reason: Abdominal Discomfort Enoxaparin Sodium (Lovenox) 40 mg SC DAILY DARRIN Gabapentin (Neurontin) 300 mg PO Q8H PRN PRN PRN Reason: moderate to severe anxiety Glucagon () 1 mg IM .X1 PRN PRN Reason: Hypoglycemia Hydroxyzine Pamoate (Vistaril Pamoate Capsule) 50 mg PO Q6H PRN PRN PRN Reason: mild anxiety Vancomycin IV Pharmacy to Dose (1 ea/ Sodium Chloride) 500 mls @ 250 mls/hr IV PRN PRN; Protocol PRN Reason: Rx to Dose Piperacillin Sod/Tazobactam (Sod 3.375 gm/ Sodium Chloride) 50 mls @ 12.5 mls/hr IV Q8 DARRIN Last Infusion: 03/17/20 09:20 Dose: Infused Documented by: Sodium Chloride () 500 mls @ 15 mls/hr IV PRN PRN PRN Reason: Blood Transfusion Sodium Chloride () 250 mls @ 15 mls/hr IV .[id number] PRN PRN Reason: Saline Flush Last Infusion: 03/17/20 05:16 Dose: 0 mls/hr Documented by: Sodium Chloride () 250 mls @ 15 mls/hr IV .[id number] PRN PRN Reason: Additional IVPB Infusion Vancomycin HCl (Vancomycin) 1,000 mg in 200 mls @ 200 mls/hr IV Q12H DARRIN Last Infusion: 03/17/20 02:28 Dose: Infused Documented by: Ibuprofen (Motrin) 600 mg PO Q8H PRN PRN PRN Reason: Pain Score 1-10/10 Loperamide HCl (Imodium) 2 mg PO Q4H PRN PRN PRN Reason: LOOSE STOOLS Methocarbamol (Methocarbamol) 1,500 mg PO Q6H PRN PRN PRN Reason: MUSCLE SPASM Ondansetron HCl (Zofran) 4 mg IV Q8H PRN PRN PRN Reason: NAUSEA/VOMITING Ondansetron HCl (Zofran) 8 mg PO Q8H PRN PRN PRN Reason: NAUSEA Senna (Senokot) 2 tablet PO QHS PRN PRN PRN Reason: Constipation Sodium Chloride () 10 - 40 ml IV UD PRN PRN Reason: SALINE FLUSH Trazodone HCl (Desyrel) 100 mg PO QHS PRN PRN PRN Reason: INSOMNIA Medical Necessity - Tobacco Use Smoking Status: Current every day smoker Tobacco Use: Cigarettes Assessment/Plan All Active Problems (Last Updated 02/11/20 @ 15:10 by Francis Spears) Fever (Acute) 35 weeks gestation of (Resolved) Cellulitis of arm, right (Resolved) Cellulitis of external ear, bilateral (Resolved) Decreased movement (Resolved) Sprain of foot, left (Resolved) 1. Sepsis secondary to E. coli UTI-ID consulted due to history of IV drug use with history of MRSA endocarditis. Urine culture growing E. coli greater than 100,000 colony count. Blood cultures pending. No leukocytosis. Fever resolved. COVID negative. Continue IV Zosyn and IV vancomycin pending blood cultures. 2. 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 Patient reports she is to follow-up with cardiology in [place] for evaluation for valve intervention. 3. Opiate abuse-last used 03/16/2020. Opiate withdrawal protocol with buprenorphine. PRN regimen for somatic complaints. [facility] outpatient follow-up on Saturday. 4. Bipolar disorder-on Seroquel. 5. History of tobacco use-encouraged cessation. 6. History of hepatitis C-outpatient follow-up. 7. History of septic PE with concomitant cor pulmonale status post coil embolization of bronchial intercostal arteries. DVT prophylaxis-not indicated, low risk This patient was seen by CHIDI Balbuena under the supervision of Dr. Siegel. <Dayne Siegel - Last Filed: 03/17/20 14:35> Subjective: Seen and examined. Patient admitted with high fever from ER. In the morning she did not have fever chills, shortness of breath, abdominal pain. She denies dysuria, increased frequency, urgency, pelvic/perineal pain or heaviness. No recent urology procedure or catheter, though patient has IUD. Serum test negative. 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 Patient also has a scar of tracheostomy. She resumed IV fentanyl, mixed with methamphetamine few days ago Physical exam General: Alert, Oriented x3, Cooperative HEENT: Atraumatic, PERRLA, EOMI, Normocephalic Oral: No Gingival or Mucosal Lesions/ Ulcerations Neck: Supple, No JVD, Negative Carotid Bruits. Tracheostomy scar present Lungs: Air entry diminished in bilateral lung bases. No crepitation/rhonchi Cardiovascular: Regular rate, Regular Rhythm, Normal S1, Normal S2, grade 3/6 systolic murmur over left lower sternal border. Abdomen: Bowel Sounds Present, Soft, Non Tender, Non-Distended : No renal angle tenderness. No suprapubic tenderness. Extremities: No edema, Capillary Refill Less than 3 Seconds Skin: No rashes, No breakdown. No fingernail splinter hemorrhage or [place] lesion on the skin Musculoskeletal: No Tenderness to Palpation of Joints or Extremities Neurological: Cranial nerves II-XII grossly intact, Deep Tendon Reflexes 2+/4 and Symmetrical, Neuro grossly intact Psych/Mental Status: Normal Affect, Appropriate - Physical Exam Vitals/I&O's: Vital Signs Temp Pulse Resp BP Pulse Ox 97.8 F 64 17 103/81 H 100 03/17/20 09:45 03/17/20 12:54 03/17/20 09:45 03/17/20 09:45 03/17/20 09:45 Oxygen Delivery Method Room Air Weight: 136 lb 3.931 oz Body Mass Index (BMI) 24.1 Finger Stick Blood Glucose 377 Intake and Output for Last 24 Hours 03/15/20 03/16/20 03/17/20 23:59 23:59 23:59 Intake Total 2450 / 2450 3365 / 3365 Output Total 0 / 0 Balance 2450 / 2450 3365 / 3365 Microbiology Past 72 Hours 03/16/20 15:26 Urine, Clean Catch Urine Culture - Preliminary Presumptive E. coli Laboratory Results 03/16/20 15:07: WBC 8.1, RBC 4.13 L, Hgb 12.3, Hct 38.3, MCV 92.7, MCH 29.8, MCHC 32.1, RDW Std Deviation 44.0 H, RDW Coeff of [place] 13.1, Plt Count 185, MPV 10.5, Immature Gran % (Auto) 0.200, Neut % (Auto) 84.5 H, Lymph % (Auto) 6.1 L, [place] % (Auto) 8.5, Eos % (Auto) 0.5, Baso % (Auto) 0.2, Absolute Neuts (auto) 6.9, Absolute Lymphs (auto) 0.50 L, Nucleated RBC % 0, Differential Comment , Platelet Estimate ADEQUATE, RBC Morphology NORM C+C 03/16/20 15:07: PT 15.6 H, INR 1.3, APTT 28.0 03/16/20 15:07: Sodium 136, Potassium 3.5, Chloride 106, Carbon Dioxide 22.0, Anion Gap 8, BUN 11, Creatinine 0.84, Estim Creat Clear Calc 83.95, Est GFR (MDRD) Af Amer 104, Est GFR (MDRD) Non-Af 86, BUN/Creatinine Ratio 13.0, Glucose 148 H, Calcium 8.5, Total Bilirubin 0.60, AST 54 H, ALT 68 H, Alkaline Phosphatase 112, Troponin I < 0.015, Total Protein 7.7, Albumin 3.6, Globulin 4.1, Albumin/Globulin Ratio 0.9 03/16/20 15:07: Lactic Acid 2.5 H* 03/16/20 15:17: COVID-19 (JOSE) Not Detected 03/16/20 15:26: Urine Color Yellow, Urine Clarity Cloudy, Urine pH 6.0, Ur Specific [place] 1.020, Urine Protein 100 H, Urine Glucose (UA) Normal, Urine Ketones 5 H, Urine Occult Blood 250 H, Urine Nitrite Negative, Urine Bilirubin 1 H, Urine Urobilinogen 1 H, Ur Leukocyte Esterase 500 H, Urine RBC 50-100 SEEN, Urine WBC 50-100 SEEN, Ur Squamous Epith Cells 0 SEEN, Urine Bacteria 3+, Urine Mucus 0 SEEN 03/16/20 19:45: Lactic Acid 1.0 03/17/20 05:50: WBC 4.5, RBC 3.60 L, Hgb 10.7 L, Hct 34.3 L, MCV 95.3, MCH 29.7, MCHC 31.2 L, RDW Std Deviation 45.2 H, RDW Coeff of [place] 13.2, Plt Count 170, MPV 10.6, Immature Gran % (Auto) 0.200, Neut % (Auto) 34.5 L, Lymph % (Auto) 42.8 H, [place] % (Auto) 18.6 H, Eos % (Auto) 3.5, Baso % (Auto) 0.4, Absolute Neuts (auto) 1.6 L, Absolute Lymphs (auto) 1.93, Nucleated RBC % 0 03/17/20 05:50: Sodium 142, Potassium 3.9, Chloride 115 H, Carbon Dioxide 23.0, Anion Gap 4 L, BUN 8, Creatinine 0.52 L, Estim Creat Clear Calc 135.62, Est GFR (MDRD) Af Amer 181, Est GFR (MDRD) Non-Af 149, BUN/Creatinine Ratio 15.3, Glucose 92, Calcium 7.9 L 03/17/20 12:28: Urine Test Negative Current Medications Acetaminophen (Tylenol) 650 mg PO Q6H PRN PRN PRN Reason: Pain Score 1-10/Temp > 100.7 F Last Admin: 03/16/20 20:02 Dose: 650 mg Documented by: Al Hydroxide/Mg Hydroxide (Mylanta Ii) 30 ml PO Q6H PRN PRN PRN Reason: dyspesia Bisacodyl (Dulcolax) 10 mg RECTAL DAILY PRN PRN Reason: Constipation Buprenorphine HCl (Buprenorphine Hcl) 0 mg SL Q8H DARRIN; Taper Stop: 03/20/20 00:14 Dextrose (D50w Syringe) 0 gm IV X1 PRN; Protocol PRN Reason: Hypoglycemia Dicyclomine HCl (Bentyl) 20 mg PO Q6H PRN PRN PRN Reason: Abdominal Discomfort Enoxaparin Sodium (Lovenox) 40 mg SC DAILY [facility] Last Admin: 03/17/20 13:34 Dose: 40 mg Documented by: Gabapentin (Neurontin) 300 mg PO Q8H PRN PRN PRN Reason: moderate to severe anxiety Glucagon () 1 mg IM .X1 PRN PRN Reason: Hypoglycemia Hydroxyzine Pamoate (Vistaril Pamoate Capsule) 50 mg PO Q6H PRN PRN PRN Reason: mild anxiety Vancomycin IV Pharmacy to Dose (1 ea/ Sodium Chloride) 500 mls @ 250 mls/hr IV PRN PRN; Protocol PRN Reason: Rx to Dose Piperacillin Sod/Tazobactam (Sod 3.375 gm/ Sodium Chloride) 50 mls @ 12.5 mls/hr IV Q8 [facility] Last Infusion: 03/17/20 09:20 Dose: Infused Documented by: Sodium Chloride () 500 mls @ 15 mls/hr IV PRN PRN PRN Reason: Blood Transfusion Sodium Chloride () 250 mls @ 15 mls/hr IV .[id number] PRN PRN Reason: Saline Flush Last Infusion: 03/17/20 05:16 Dose: 0 mls/hr Documented by: Sodium Chloride () 250 mls @ 15 mls/hr IV .[id number] PRN PRN Reason: Additional IVPB Infusion Vancomycin HCl (Vancomycin) 1,000 mg in 200 mls @ 200 mls/hr IV Q12H [facility] Last Admin: 03/17/20 13:35 Dose: 200 mls/hr Documented by: Ibuprofen (Motrin) 600 mg PO Q8H PRN PRN PRN Reason: Pain Score 1-10/10 Loperamide HCl (Imodium) 2 mg PO Q4H PRN PRN PRN Reason: LOOSE STOOLS Methocarbamol (Methocarbamol) 1,500 mg PO Q6H PRN PRN PRN Reason: MUSCLE SPASM Ondansetron HCl (Zofran) 4 mg IV Q8H PRN PRN PRN Reason: NAUSEA/VOMITING Ondansetron HCl (Zofran) 8 mg PO Q8H PRN PRN PRN Reason: NAUSEA Senna (Senokot) 2 tablet PO QHS PRN PRN PRN Reason: Constipation Sodium Chloride () 10 - 40 ml IV UD PRN PRN Reason: SALINE FLUSH Trazodone HCl (Desyrel) 100 mg PO QHS PRN PRN PRN Reason: INSOMNIA Assessment/Plan This patient was seen in conjunction with [employer]. I have independently interviewed and examined the patient and reviewed pertinent history, examination findings, laboratory and plan of management. I have reviewed the note and agree with the documented findings with the few additional points. In brief, patient is 24-year-old female with history of IVDA, fentanyl, heroin and methamphetamine and also smoking about 6 cigarettes daily since teenage came to ER with high fever. She is admitted in PCU. History of MRSA endocarditis with 3+ TR, RVSP 38 mmHg, mild pulmonary hypertension with mildly dilated RV but normal systolic function. She denies lower urinary tract symptoms although dysuria mentioned in H&P. Serum negative. Patient has IUD. ID consult reviewed and appreciated. Continue IV Zosyn and vancomycin pending blood culture. No fever after admission. Substance use disorder with opioids, methamphetamine and chronic cigarette smoking and nicotine dependence: On buprenorphine based on other supportive medications for opioid withdrawal symptom control. Other comorbidities include chronic hepatitis C, bipolar disorder, history of septic emboli, infective endocarditis and tracheostomy which is closed with prolonged 3-month hospitalization in June 2019. I have discussed my assessment with Scarlet MILNER and orders have been reviewed. Inpatient E&M: [id number] Subs Hosp L2
[2020-03-17] MEDS: Enoxaparin 40 MG/0.4 ML Syringe SC (13:34)
[2020-03-18] VITALS (7 sets, daily range): BP systolic 113–121; BP diastolic 78–87; PULSE 55–73; RESP 14–18; TEMP 36.1–36.9; O2SAT 95–100
[2020-03-18] MEDS: Vancomycin IV 1,000 MG/200 ML BAG 200 MG IV (01:14)
[2020-03-18 01:17] LABS: Vancomycin, Trough Level 8.5 ug/mL (5.0-15.0)
--- NOTE | 2020-03-18 02:39 | PCM.RX.CS ---
Consult Pharmacy has been consulted to manage selected antiobiotic: Vancomycin Type of Consult: Follow-up Suspected Infection: Sepsis Labs: Sodium 142 mmol/L (136-145) 03/17/20 05:50 Potassium 3.9 mmol/L (3.5-5.1) 03/17/20 05:50 Chloride 115 mmol/L (98-107) H 03/17/20 05:50 Carbon Dioxide 23.0 mmol/L (21.0-32.0) 03/17/20 05:50 Anion Gap 4 (5-15) L 03/17/20 05:50 BUN 8 mg/dL (7-18) 03/17/20 05:50 Creatinine 0.52 mg/dL (0.55-1.02) L 03/17/20 05:50 Est GFR (MDRD) Af Amer 181 mL/min (>60) 03/17/20 05:50 Est GFR (MDRD) Non-Af 149 mL/min (>60) 03/17/20 05:50 BUN/Creatinine Ratio 15.3 RATIO (-20) 03/17/20 05:50 Glucose 92 mg/dL (74-106) 03/17/20 05:50 Vancomycin Trough 8.5 ug/mL (5.0-15.0) 03/18/20 00:40 Microbiology: Microbiology 03/16/20 15:26 Urine, Clean Catch Urine Culture - Preliminary Presumptive E. coli Goal Trough: 15-20 mcg/mL Pharmacy Plan for Drug Dosing: Pharmacy Service will continue to monitor and adjust dosing as required. SCr DCREASED TO 0.52 TROUGH 8.5 NEW DOSE 1750 Q12H NEXT TROUGH 03/20 @ 0030 Follow-Up Labs: Trough Vancomycin Labs to be done on [date and time ordered]: 03/20 @ 003
[2020-03-18 05:49] LABS: Hematocrit 37.6 % (37-47); Hemoglobin 11.8 g/dL (12.0-15.0); Mean Corp Hgb Conc 31.4 g/dL (32-36); Mean Corpuscular Volume 95.7 fL (81-99); Mean Platelet Vol. 10.9 fl (6.2-12.0); Platelet Count 199 K/mm3 (150-450); RBC Distribution Width CV 13.1 % (11.6-14.6); RBC Distribution Width SD 45.3 fl (35.1-43.9); Red Blood Count 3.93 M/mm3 (4.2-5.4); White Blood Count 6.6 K/mm3 (4.4-11.0)
[2020-03-18 06:09] LABS: Anion Gap 3 (5-15); BUN 7 mg/dL (7-18); BUN/Creat Ratio 12.4 RATIO (10-20); Calcium,Total 8.3 mg/dL (8.5-10.1); Chloride 112 mmol/L (98-107); Creatinine, Serum 0.56 mg/dL (0.55-1.02); EST Glomerular Filtration Rate 138 mL/min (>60); Est Glom Filt Rate - Afr Amer 166 mL/min (>60); Estimated Creatinine Clearance 125.93 ml/min; Glucose 85 mg/dL (74-106); Potassium 3.5 mmol/L (3.5-5.1); Sodium Level 140 mmol/L (136-145)
--- NOTE | 2020-03-18 07:39 | CPS ---
cont. on via nursing.
[2020-03-18] MEDS: Enoxaparin 40 MG/0.4 ML Syringe SC (08:56)
[2020-03-18] MEDS: Ibuprofen 600 MG Tablet PO (08:56)
--- NOTE | 2020-03-18 10:48 | CT_ITS ---
STUDY: CT ABDOMEN AND PELVIS WITH CONTRAST REASON FOR EXAM: Female, 24 years old. F/U TO ABNORMAL KIDNEY US, HX OF LUNG COILS RADIATION DOSAGE (If Supplied By Facility): CTDIvol = ( 21.39 ) mGy, DLP = ( 515.69 ) mGycm TECHNIQUE: Transaxial images were obtained from the dome of the diaphragm to the symphysis pubis without oral contrast. IV 100mL Isovue-300 was administered. Sagittal and coronal images were reconstructed. Individualized dose optimization techniques were used for this CT. COMPARISON: Renal ultrasound March 17, 2020 FINDINGS: The visualized lung bases demonstrate atelectasis. Small pleural effusions. The visualized portions of the heart are within normal limits. Normal liver. Pericholecystic fluid is noted around the gallbladder. Normal extrahepatic biliary system. Normal spleen. Normal pancreas. Normal bilateral adrenal glands. Normal right kidney. Possible 2 mm nonobstructing stone in the left kidney. No renal cortical lesions. Normal visualized stomach. Normal small intestine. Fecal retention in the rectosigmoid colon. The appendix is visualized and appears normal. Mild fluid in the right lower quadrant and along the right paracolic gutter. Normal abdominal aorta. Normal inferior vena cava. Normal retroperitoneum. Mild wall thickening of the urinary bladder. IUD in the uterus. Mild pelvic fluid. There are subcutaneous nodules/collections bilaterally in the gluteal regions up to 3.8 x 1.9 cm. Normal osseous structures. CT/Abdomen/Pelvis WITH Contrast IMPRESSION: Possible nonobstructive left renal stone. No renal lesions. Pericholecystic fluid. IUD in the uterus. Mild pelvic fluid. Mild wall thickening of the urinary bladder. Subcutaneous nodules or collections within the gluteal regions bilaterally. Small pleural effusions with basilar atelectasis bilaterally. Fecal retention distending the rectosigmoid colon. Electronically Signed: Jean-Paul Mcarthur DO at 12:46 EDT Tel [phone], Service support ,
[2020-03-18] MEDS: Mag Hydrox/Al Hydrox/Simeth 30 ML UDC PO (10:57)
--- NOTE | 2020-03-18 13:30 | DCINST_ITS ---
- Discharge Diagnoses Current Active Problems: Current Active and Chronic Problems (Last Updated 02/11/20 @ 15:10 by Francis Spears) UTI You will use the following diet at home:: No restrictions Discharge Activity: Return to Normal Activity Call your doctor if you observe: Fever of 101 or Higher, Shortness of breath, Dizziness, Fainting spells, Chest pain Allergies/Adverse Reactions: Allergies No Known Allergies Allergy (Verified 03/16/20 14:42) Medications to take at Discharge Diltiazem HCl [Cardizem Cd] 120 mg PO DAILY 03/16/20 Quetiapine Fumarate [Quetiapine Fumarate ER] 150 mg PO DAILY 03/16/20 Valacyclovir HCl [Valacyclovir] 500 mg PO DAILY 03/16/20 Ciprofloxacin HCl 500 mg PO BID 6 Days #12 tab 03/18/20 The following prescriptions were given: Ciprofloxacin HCl 500 mg PO BID 6 Days #12 tab Transmission Status: Pending to [facility] Rylee - [id number] Test Results: Test results from this visit will be discussed in further detail at your follow- up appointment, if applicable. Please Follow Up With: Daniela Ledbetter MD When: 1 Week Please Follow Up With: EIGHTY,ONE When: As scheduled, Wednesday 03/21 Please Follow Up With: Jared Lozano MD When: As scheduled Proposed Discharge Date: 03/18/20
--- NOTE | 2020-03-18 13:33 | PCM.DC.SUM ---
<Scarlet Rios - Last Filed: 03/18/20 13:41> Discharge Date and Diagnosis Date of Admission: 03/16/20 Date of Discharge: 03/18/20 - Primary Discharge Diagnosis Acute Problems: Active Problems (Last Updated 02/11/20 @ 15:10 by Francis Spears) 1. Sepsis secondary to E. coli UTI 2. 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 Opiate abuse 4. Bipolar disorder 5. History of tobacco use 6. History of hepatitis C 7. History of septic PE with concomitant cor pulmonale status post coil embolization of bronchial intercostal arteries. - Secondary Discharge Diagnosis Chronic Problems: Chronic Problems (Last Updated 02/11/20 @ 15:10 by Francis Spears) s/p coil embolization of bronchial and intercostal arteries (Chronic 08/27/19) [facility] [place]: Right upper lobe History of bronchoscopy (Chronic 08/25/19) History of pelvic inflammatory disease (Chronic) Septic pulmonary embolism (Chronic) Antepartum anemia (Chronic) Status post insertion of percutaneous endoscopic gastrostomy (PEG) tube (Chronic) History of tracheostomy (Chronic) History of herpes genitalis (Chronic) History of incarceration (Chronic) History of heroin abuse (Chronic) 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 Electronically Signed: Jun Santos MD at 16:12 EDT Tel , Service support , Renal Ultrasound 03/17/20 08:02 IMPRESSION: 3.3 cm mass in the midsection left kidney and correlation with renal mass pedicle CT or MRI is recommended. Electronically Signed: Jun Santos MD at 10:36 EDT Tel , Service support , Abdomen/Pelvis CT 03/18/20 10:48 IMPRESSION: Possible nonobstructive left renal stone. No renal lesions. Pericholecystic fluid. IUD in the uterus. Mild pelvic fluid. Mild wall thickening of the urinary bladder. Subcutaneous nodules or collections within the gluteal regions bilaterally. Small pleural effusions with basilar atelectasis bilaterally. Fecal retention distending the rectosigmoid colon. Electronically Signed: Jean-Paul Mcarthur at 12:46 EDT Tel [phone], Service support , Operations: None Procedures: None Summary of Care Provided: The patient is a 24 year old F admitted 03/16/2020 due to fever. 1. Sepsis secondary to E. coli UTI-ID consulted due to history of IV drug use with history of MRSA endocarditis. Urine culture growing E. coli greater than 100,000 colony count. Blood culture showed no growth thus far. No leukocytosis. Fever resolved. COVID negative. IV Zosyn and IV vancomycin empirically on admission. Discharged on oral Cipro to complete course. 2. 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 Patient reports she is to follow-up with cardiology in [place] for evaluation for valve intervention. 3. Opiate abuse-last used 03/16/2020. Opiate withdrawal protocol with buprenorphine. PRN regimen for somatic complaints. [facility] outpatient follow-up on Saturday. Patient was previously sober for 5 months and only used x1 day. No withdrawal symptoms during admission. 4. Bipolar disorder-on Seroquel. 5. History of tobacco use-encouraged cessation. 6. History of hepatitis C-outpatient follow-up. 7. History of septic PE with concomitant cor pulmonale status post coil embolization of bronchial intercostal arteries. 8. Abnormal renal ultrasound-renal ultrasound demonstrated 3.3 cm mass of the left kidney. CT abdomen and pelvis completed for follow-up which showed possible nonobstructive left renal stone, no renal lesions. Fanny-cholecystic fluid. Mild wall thickening of the urinary bladder. Subcutaneous nodules or collections within the gluteal regions. General: Alert, Oriented x3, Cooperative HEENT: Atraumatic, PERRLA, EOMI, Normocephalic Neck: Supple, No JVD, Negative Carotid Bruits Lungs: Clear to auscultation, Normal air movement Cardiovascular: Regular rate, No murmurs Abdomen: Bowel Sounds Present, Soft, Non Tender Extremities: No edema, Capillary Refill Less than 3 Seconds Skin: No rashes, No breakdown Musculoskeletal: No Tenderness to Palpation of Joints or Extremities Neurological: Cranial nerves II-XII grossly intact, Neuro grossly intact Psych/Mental Status: Normal Affect, Appropriate Patient seen and examined prior to discharge. Physical assessment as noted above. Patient is stable for discharge with follow up recommendations as noted above. This patient was seen by CHIDI Balbuena under the supervision of Dr. Siegel. - Physical Exam Vitals/I&O's: Vital Signs Temp Pulse Resp BP Pulse Ox 97 F L 61 14 114/79 96 03/18/20 08:50 03/18/20 10:55 03/18/20 08:50 03/18/20 08:50 03/18/20 08:50 Oxygen Delivery Method Room Air Weight: 136 lb 3.931 oz Body Mass Index (BMI) 24.1 Finger Stick Blood Glucose 377 Intake and Output for Last 24 Hours 03/16/20 03/17/20 03/18/20 23:59 23:59 23:59 Intake Total 2450 / 2450 3855 / 4355 1707.5 / 1707.5 Output Total 0 / 0 Balance 2450 / 2450 3855 / 4355 1707.5 / 1707.5 Microbiology Past 72 Hours 03/16/20 15:26 Urine, Clean Catch Urine Culture - Final Presumptive E. coli Laboratory Results 03/18/20 00:40: Vancomycin Trough 8.5 03/18/20 05:36: WBC 6.6, RBC 3.93 L, Hgb 11.8 L, Hct 37.6, MCV 95.7, MCH 30.0, MCHC 31.4 L, RDW Std Deviation 45.3 H, RDW Coeff of Ashley 13.1, Plt Count 199, MPV 10.9 03/18/20 05:36: Sodium 140, Potassium 3.5, Chloride 112 H, Carbon Dioxide 25.0, Anion Gap 3 L, BUN 7, Creatinine 0.56, Estim Creat Clear Calc 125.93, Est GFR (MDRD) Af Amer 166, Est GFR (MDRD) Non-Af 138, BUN/Creatinine Ratio 12.4, Glucose 85, Calcium 8.3 L Current Medications Acetaminophen (Tylenol) 650 mg PO Q6H PRN PRN PRN Reason: Pain Score 1-10/Temp > 100.7 F Last Admin: 03/16/20 20:02 Dose: 650 mg Documented by: Al Hydroxide/Mg Hydroxide (Mylanta Ii) 30 ml PO Q6H PRN PRN PRN Reason: dyspesia Bisacodyl (Dulcolax) 10 mg RECTAL DAILY PRN PRN Reason: Constipation Dextrose (D50w Syringe) 0 gm IV X1 PRN; Protocol PRN Reason: Hypoglycemia Dicyclomine HCl (Bentyl) 20 mg PO Q6H PRN PRN PRN Reason: Abdominal Discomfort Enoxaparin Sodium (Lovenox) 40 mg SC DAILY [facility] Last Admin: 03/18/20 08:56 Dose: 40 mg Documented by: Gabapentin (Neurontin) 300 mg PO Q8H PRN PRN PRN Reason: moderate to severe anxiety Glucagon () 1 mg IM .X1 PRN PRN Reason: Hypoglycemia Hydroxyzine Pamoate (Vistaril Pamoate Capsule) 50 mg PO Q6H PRN PRN PRN Reason: mild anxiety Vancomycin IV Pharmacy to Dose (1 ea/ Sodium Chloride) 500 mls @ 250 mls/hr IV PRN PRN; Protocol PRN Reason: Rx to Dose Piperacillin Sod/Tazobactam (Sod 3.375 gm/ Sodium Chloride) 50 mls @ 12.5 mls/hr IV Q8 [facility] Last Infusion: 03/18/20 10:48 Dose: Infused Documented by: Sodium Chloride () 500 mls @ 15 mls/hr IV PRN PRN PRN Reason: Blood Transfusion Sodium Chloride () 250 mls @ 15 mls/hr IV .[id number] PRN PRN Reason: Saline Flush Last Infusion: 03/18/20 07:00 Dose: 0 mls/hr Documented by: Sodium Chloride () 250 mls @ 15 mls/hr IV .[id number] PRN PRN Reason: Additional IVPB Infusion Vancomycin HCl 1,750 mg/ (Sodium Chloride) 535 mls @ 250 mls/hr IV Q12H [facility] Last Admin: 03/18/20 12:49 Dose: 250 mls/hr Documented by: Ibuprofen (Motrin) 600 mg PO Q8H PRN PRN PRN Reason: Pain Score 1-10/10 Last Admin: 03/18/20 08:56 Dose: 600 mg Documented by: Loperamide HCl (Imodium) 2 mg PO Q4H PRN PRN PRN Reason: LOOSE STOOLS Methocarbamol (Methocarbamol) 1,500 mg PO Q6H PRN PRN PRN Reason: MUSCLE SPASM Ondansetron HCl (Zofran) 4 mg IV Q8H PRN PRN PRN Reason: NAUSEA/VOMITING Ondansetron HCl (Zofran) 8 mg PO Q8H PRN PRN PRN Reason: NAUSEA Senna (Senokot) 2 tablet PO QHS PRN PRN PRN Reason: Constipation Sodium Chloride () 10 - 40 ml IV UD PRN PRN Reason: SALINE FLUSH Trazodone HCl (Desyrel) 100 mg PO QHS PRN PRN PRN Reason: INSOMNIA Discharge Diet: No Restrictions Discharge Activity: Return to Normal Activity Call your doctor if you observe: Fever of 101 or Higher, Shortness of breath, Dizziness, Fainting spells, Chest pain Home Medications: Medications to take at Discharge Diltiazem HCl [Cardizem Cd] 120 mg PO DAILY 03/16/20 Quetiapine Fumarate [Quetiapine Fumarate ER] 150 mg PO DAILY 03/16/20 Valacyclovir HCl [Valacyclovir] 500 mg PO DAILY 03/16/20 Ciprofloxacin HCl 500 mg PO BID 6 Days #12 tab 03/18/20 Following Prescrptions Were Given to Patient: Ciprofloxacin HCl 500 mg PO BID 6 Days #12 tab Transmission Status: Received by [facility] - [id number] Primary Care Physician: Tamanna aVllejo MD [Primary Care Provider] - Please Follow Up With: Daniela Ledbetter MD When: 1 Week Please Follow Up With: EIGHTY,ONE When: As scheduled, Wednesday 03/21 Please Follow Up With: Jared Lozano MD When: As scheduled Disposition: Home Minutes spent on discharge:: 35 Patient Condition:: Stable Medical Necessity - Tobacco Use Smoking Status: Current every day smoker Tobacco Use: Cigarettes Meaningful Use Info Meaningful Use Diagnoses (Choose all that apply): None applicable <Dayne Siegel - Last Filed: 03/18/20 14:44> Discharge Date and Diagnosis - Secondary Discharge Diagnosis Chronic Problems: Chronic Problems (Last Updated 02/11/20 @ 15:10 by Francis Spears) s/p coil embolization of bronchial and intercostal arteries (Chronic 08/27/19) [facility] [place]: Right upper lobe History of bronchoscopy (Chronic 08/25/19) History of pelvic inflammatory disease (Chronic) Septic pulmonary embolism (Chronic) Antepartum anemia (Chronic) Status post insertion of percutaneous endoscopic gastrostomy (PEG) tube (Chronic) History of tracheostomy (Chronic) History of herpes genitalis (Chronic) History of incarceration (Chronic) History of heroin abuse (Chronic) 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 I have independently interviewed and examined the patient and reviewed pertinent history, examination findings, laboratory and plan of management. I have reviewed the note and agree with the documented findings with the few additional points. In brief, patient is 24-year-old female with history of IVDA, fentanyl, heroin and methamphetamine and also smoking about 6 cigarettes daily since teenage came to ER with high fever. She is admitted in PCU. History of MRSA endocarditis with 3+ TR, RVSP 38 mmHg, mild pulmonary hypertension with mildly dilated RV but normal systolic function. She denies lower urinary tract symptoms although dysuria mentioned in H&P. Serum negative. Patient has IUD. ID consult reviewed and appreciated. Continue IV Zosyn and vancomycin pending blood culture. No fever after admission. Urine culture shows E. coli more than 100,000, sensitive to fluoroquinolone. Patient is being discharged on Cipro. Kidneys ultrasound were done reported 3.3 cm left kidney hypoechoic mass for which CT scan with IV contrast was done. Abdomen and pelvis CT reported possible nonobstructive left renal stone with no renal lesions. IUD in uterus. Mild wall thickening of urinary bladder. Fecal retention in the rectosigmoid colon. Substance use disorder with opioids, methamphetamine and chronic cigarette smoking and nicotine dependence: On buprenorphine based on other supportive medications for opioid withdrawal symptom control. Patient advised for quitting opioids, methamphetamine and cigarette smoking. Other comorbidities include chronic hepatitis C, bipolar disorder, history of septic emboli, infective endocarditis and tracheostomy which is closed with prolonged 3-month hospitalization in June 2019. Discharge medication reconciliation done. Discharge follow-up instructions completed. Discharge process discussed with the patient and all questions were answered to patient's satisfaction. Total time spent, exact 35 minutes on discharge meds reconciliation, examination, coordination of care with nurses and ancillary staff, review of imaging and blood test and discussion with the patient on follow-up instructions I have discussed my assessment with SUBSTATION INSPECTOR, Scarlet and orders have been reviewed. [] Clinical Impression(s) from Imaging Studies Chest X-Ray 03/16/20 14:57 IMPRESSION: No active disease. Renal Ultrasound 03/17/20 08:02 IMPRESSION: 3.3 cm mass in the midsection left kidney and correlation with renal mass pedicle CT or MRI is recommended. Abdomen/Pelvis CT 03/18/20 10:48 IMPRESSION: Possible nonobstructive left renal stone. No renal lesions. Pericholecystic fluid. IUD in the uterus. Mild pelvic fluid. Mild wall thickening of the urinary bladder. Subcutaneous nodules or collections within the gluteal regions bilaterally. Small pleural effusions with basilar atelectasis bilaterally. Fecal retention distending the rectosigmoid colon. Electronically Signed: Jean-Paul Mcarthur DO at 12:46 EDT Tel [phone], Service support , Objective: No fever in last 48 hours. Blood pressure is good. Ultrasound kidneys reported 3.3 cm mass hypoechoic mass in the left kidney. Physical exam General: Alert, Oriented x3, Cooperative HEENT: Atraumatic, PERRLA, EOMI, Normocephalic Oral: No Gingival or Mucosal Lesions/ Ulcerations Neck: Supple, No JVD, Negative Carotid Bruits. Tracheostomy scar present Lungs: Air entry equal in bilateral lung bases. No crepitation/rhonchi Cardiovascular: Regular rate, Regular Rhythm, Normal S1, Normal S2, grade 3/6 systolic murmur over left lower sternal border. Abdomen: Bowel Sounds Present, Soft, Non Tender, Non-Distended : No renal angle tenderness. No suprapubic tenderness. No hematuria. Extremities: No edema, Capillary Refill Less than 3 Seconds Skin: No rashes, No breakdown. No fingernail splinter hemorrhage or [place] lesion on the skin Musculoskeletal: No Tenderness to Palpation of Joints or Extremities Neurological: Cranial nerves II-XII grossly intact, Deep Tendon Reflexes 2+/4 and Symmetrical, Neuro grossly intact Psych/Mental Status: Normal Affect, Appropriate - Physical Exam Vitals/I&O's: Vital Signs Temp Pulse Resp BP Pulse Ox 98.2 F 73 18 121/87 H 100 03/18/20 14:33 03/18/20 14:33 03/18/20 14:33 03/18/20 14:33 03/18/20 14:33 Oxygen Delivery Method Room Air Weight: 136 lb 3.931 oz Body Mass Index (BMI) 24.1 Finger Stick Blood Glucose 377 Intake and Output for Last 24 Hours 03/16/20 03/17/20 03/18/20 23:59 23:59 23:59 Intake Total 2450 / 2450 3855 / 4355 1707.5 / 1707.5 Output Total 0 / 0 Balance 2450 / 2450 3855 / 4355 1707.5 / 1707.5 Microbiology Past 72 Hours 03/16/20 15:28 Blood Culture (Wb) - Right Hand Blood Culture - Preliminary No growth in 48 hours. 03/16/20 15:07 Blood Culture (Wb) - Left Wrist Blood Culture - Preliminary No growth in 48 hours. 03/16/20 15:26 Urine, Clean Catch Urine Culture - Final Presumptive E. coli Laboratory Results 03/18/20 00:40: Vancomycin Trough 8.5 03/18/20 05:36: WBC 6.6, RBC 3.93 L, Hgb 11.8 L, Hct 37.6, MCV 95.7, MCH 30.0, MCHC 31.4 L, RDW Std Deviation 45.3 H, RDW Coeff of Ashley 13.1, Plt Count 199, MPV 10.9 03/18/20 05:36: Sodium 140, Potassium 3.5, Chloride 112 H, Carbon Dioxide 25.0, Anion Gap 3 L, BUN 7, Creatinine 0.56, Estim Creat Clear Calc 125.93, Est GFR (MDRD) Af Amer 166, Est GFR (MDRD) Non-Af 138, BUN/Creatinine Ratio 12.4, Glucose 85, Calcium 8.3 L Current Medications Acetaminophen (Tylenol) 650 mg PO Q6H PRN PRN PRN Reason: Pain Score 1-10/Temp > 100.7 F Last Admin: 03/16/20 20:02 Dose: 650 mg Documented by: Al Hydroxide/Mg Hydroxide (Mylanta Ii) 30 ml PO Q6H PRN PRN PRN Reason: dyspesia Bisacodyl (Dulcolax) 10 mg RECTAL DAILY PRN PRN Reason: Constipation Dextrose (D50w Syringe) 0 gm IV X1 PRN; Protocol PRN Reason: Hypoglycemia Dicyclomine HCl (Bentyl) 20 mg PO Q6H PRN PRN PRN Reason: Abdominal Discomfort Enoxaparin Sodium (Lovenox) 40 mg SC DAILY [facility] Last Admin: 03/18/20 08:56 Dose: 40 mg Documented by: Gabapentin (Neurontin) 300 mg PO Q8H PRN PRN PRN Reason: moderate to severe anxiety Glucagon () 1 mg IM .X1 PRN PRN Reason: Hypoglycemia Hydroxyzine Pamoate (Vistaril Pamoate Capsule) 50 mg PO Q6H PRN PRN PRN Reason: mild anxiety Vancomycin IV Pharmacy to Dose (1 ea/ Sodium Chloride) 500 mls @ 250 mls/hr IV PRN PRN; Protocol PRN Reason: Rx to Dose Piperacillin Sod/Tazobactam (Sod 3.375 gm/ Sodium Chloride) 50 mls @ 12.5 mls/hr IV Q8 [facility] Last Infusion: 03/18/20 10:48 Dose: Infused Documented by: Sodium Chloride () 500 mls @ 15 mls/hr IV PRN PRN PRN Reason: Blood Transfusion Sodium Chloride () 250 mls @ 15 mls/hr IV .[id number] PRN PRN Reason: Saline Flush Last Infusion: 03/18/20 07:00 Dose: 0 mls/hr Documented by: Sodium Chloride () 250 mls @ 15 mls/hr IV .[id number] PRN PRN Reason: Additional IVPB Infusion Vancomycin HCl 1,750 mg/ (Sodium Chloride) 535 mls @ 250 mls/hr IV Q12H [facility] Last Admin: 03/18/20 12:49 Dose: 250 mls/hr Documented by: Ibuprofen (Motrin) 600 mg PO Q8H PRN PRN PRN Reason: Pain Score 1-06/11 Last Admin: 03/18/20 08:56 Dose: 600 mg Documented by: Loperamide HCl (Imodium) 2 mg PO Q4H PRN PRN PRN Reason: LOOSE STOOLS Methocarbamol (Methocarbamol) 1,500 mg PO Q6H PRN PRN PRN Reason: MUSCLE SPASM Ondansetron HCl (Zofran) 4 mg IV Q8H PRN PRN PRN Reason: NAUSEA/VOMITING Ondansetron HCl (Zofran) 8 mg PO Q8H PRN PRN PRN Reason: NAUSEA Senna (Senokot) 2 tablet PO QHS PRN PRN PRN Reason: Constipation Sodium Chloride () 10 - 40 ml IV UD PRN PRN Reason: SALINE FLUSH Trazodone HCl (Desyrel) 100 mg PO QHS PRN PRN PRN Reason: INSOMNIA Inpatient E&M: 46101 Disch Hosp
--- NOTE | 2020-03-18 14:21 | PHA.DC.MC ---
Pharmacy Service has performed discharge medication reconciliation and counseling for this patient. The patient was counseled on the following discharge medications and changes in medications for homegoing were reviewed. 1. CIPRO The Reason for Use, instructions for use, and potential side effects were reviewed for all new medications. The patient's questions regarding all of their medications were answered. The patient was able to verbally demonstrate an understanding of their discharge medications. Home Medications Diltiazem HCl [Cardizem Cd] 120 mg PO DAILY 03/16/20 Quetiapine Fumarate [Quetiapine Fumarate ER] 150 mg PO DAILY 03/16/20 Valacyclovir HCl [Valacyclovir] 500 mg PO DAILY 03/16/20 Ciprofloxacin HCl 500 mg PO BID 6 Days #12 tab 03/18/20 The patient's discharge medication list was reviewed for discrepancies and discrepancies were resolved.
== END 2020-03-18 14:46 | disposition home or self-care (01) | DRG 463 ==
LOC: ED 15:51 → PCU 18:00
PROVIDERS: Internal Medicine Infectious Disease; Nurse Practitioner Family; Admitting Provider Student in an Organized Health Care Education/Training Program; Emergency Provider Emergency Medicine; PCP Family Medicine; Visit Provider Internal Medicine
DX: N12 Tubulo-interstitial nephritis, not specified as acute or chronic (principal); B96.20 Unspecified Escherichia coli [E. coli] as the cause of diseases classified elsewhere; N28.89 Other specified disorders of kidney and ureter; B18.2 Chronic viral hepatitis C; F31.9 Bipolar disorder, unspecified; L03.114 Cellulitis of left upper limb; F11.23 Opioid dependence with withdrawal; F15.10 Other stimulant abuse, uncomplicated; F17.210 Nicotine dependence, cigarettes, uncomplicated; Z97.5 Presence of (intrauterine) contraceptive device; Z86.711 Personal history of pulmonary embolism; Z86.79 Personal history of other diseases of the circulatory system; Z86.14 Personal history of Methicillin resistant Staphylococcus aureus infection
CPT/HCPCS: 36415; 71045; 74177; 76770; 80048; 80053; 80202; 81001; 81025; 83605; 84484; 85025; 85027; 85610; 85730; 87040; 87086; 87088; 87186; 87635; 93005; 94762; 99285; 99406; G2023; J7030; J7040; J7050; Q9967; A4216; U0003

== ENCOUNTER 2020-03-24 11:19 | Inpatient (IN) | payer MEDICAID, SELFPAY ==
[2020-03-16 18:39] VITALS: BMI 24.1
[2020-03-24] VITALS (9 sets, daily range): BP systolic 81–150; BP diastolic 48–76; PULSE 70–90; RESP 12–18; TEMP 36.2–37.1; O2SAT 97–100; BMI 25.2; BMI 24.3
--- NOTE | 2020-03-24 11:41 | ED.VIS.GEN ---
History of Present Illness Chief Complaint: Overdose Informant: Patient, Etl Informatica Developer Narrative: The patient was at 180 and kept falling asleep during a meeting. Her counselor suggested she should leave. She states she went to the bathroom and used opiates. She was found unresponsive. She states she has been intermittently using over the past week after being clean for 5 months. She states that she has not gotten much sleep. She did not reportedly receive any Narcan. Denies any difficulty breathing. She denies any fevers chills cough. Patient simply states she is tired. Past Medical History - Allergies and Home Meds Allergies/Adverse Reactions: Allergies No Known Allergies Allergy (Verified 03/24/20 11:25) Primary Care Physician: Tamanna Vallejo MD [Primary Care Provider] - As soon as possible [facility] [STAFF PHYSICIAN] - As soon as possible Surgical History: no surgical history Smoking Status: Current every day smoker - Family History Paternal Family History: Family History (Last Reviewed 11/30/19 @ 18:33 by Lucy Whittaker) Mother Bipolar 1 disorder Depression Anxiety Suicide STD (female) drug addiciton Grandmother Breast cancer Arthritis Sister Depression Father Alcoholism Other Thyroid disorder Family History: Reports: No pertinent history Maternal Family History: Family History (Last Reviewed 11/30/19 @ 18:33 by Lucy Whittaker) Mother Bipolar 1 disorder Depression Anxiety Suicide STD (female) drug addiciton Grandmother Breast cancer Arthritis Sister Depression Father Alcoholism Other Thyroid disorder Family History: Reports: No pertinent history Review of Systems General: Reports: Malaise. Denies: Chills, Fever, Sweats Eyes: Denies: Visual changes - bilaterally, Diplopia ENT: Denies: Rhinorrhea, Sore throat Cardiovascular: Denies: Chest pain, Palpitations Respiratory: Denies: Dyspnea, Cough, Dyspnea on exertion Gastrointestinal: Denies: Abdominal pain, Nausea, Vomiting, Diarrhea, Melena, Hematochezia Genitourinary: Denies: Dysuria, Hematuria, Frequency Musculoskeletal: Denies: Back pain, Extremity Pain Skin: Denies: Rash, Wounds Neurological: Denies: Headache, Weakness, Numbness Physical Exam Vital Signs/Narrative: Vital Signs Temp Pulse Resp BP Pulse Ox 03/24/20 11:20 98.4 F 83 15 150/76 H 99 Inital Vital Signs reviewed: Yes General: Well nourished, Well developed, No Acute Distress Head: Normocephalic, Atraumatic Eyes: Perrl, EOMI, - - Pupils are 3-1 ENT: Moist mucous membranes, No rhinorrhea Neck: Supple, Nontender Cardiovascular: Regular rate, Regular rhythm, No murmurs Respiratory: No distress, CTA bilaterally, Chest nontender Abdomen: Soft, Nontender, Nondistended, Normal bowel sounds Back: Nontender, Normal Inspection Extremities: Nontender, No edema Skin: Normal color, No rash Neurological: Oriented x3, Cranial nerves II-XII grossly intact, Normal Strength, Normal Sensation, Lethargic - Patient is very tired appearing and fell asleep during conversation with her. She easily woke back up. Psychological: Normal affect, Normal Mood Diagnostic/Tx/Re-eval - Medical Decision Making Patient would like to sleep and we will reevaluate her when she is more awake. At this point I am going to withhold Narcan. However if she becomes hypoxic or apneic we would administer. Patient woke up and is wanting to leave. She is not interested in inpatient detox at this time Patient was in the emergency department after discharge for several hours making phone calls. She now wants to be admitted for detox. ED Disposition - Plan for ED Patient: Disposition: Home or Assisted Living Diagnosis: Opiate overdose, Opiate addiction Instructions: ED Abuse Narcotic, ED Overdose Opiate Prescriptions: Naloxone HCl [Narcan] 4 mg NS X1 PRN #1 spray PRN Reason: overdose Prescription Printed Referrals: Tamanna Vallejo MD [Primary Care Provider] - As soon as possible [facility] [STAFF PHYSICIAN] - As soon as possible
--- NOTE | 2020-03-24 13:25 | CM.ED ---
SOCIAL WORK Informant: Dr. South Reason for Consult: Substance Abuse Met with patient in room. Patient reports has been using off and on for several weeks and does not feel she needs detox. Patient states, I am in IOP and was supposed to meet with housing person today and ended up here. Patient not open to discussing options and reports I need to use the restroom, I'm irritated and want to smoke. Nursing updated on patient's request to use the restroom. This worker to remain available for needs. Lazaro Brambila, FOREST OFFICER, SIDE STITCHER
--- NOTE | 2020-03-24 13:35 | CM.ED ---
SOCIAL WORK Informed by nursing patient wanting to discharge. Dr. Akosua Holland. Kosta, NURSES SUPERVISOR, READING INTERVENTIONIST
--- NOTE | 2020-03-24 14:10 | CM.ED ---
SOCIAL WORK Patient remains in ER. Patient wanting to discuss all options with [facility]. Patient calling [facility] at this time. Nursing and this worker has attempted to discuss detox with patient. This worker to remain available for needs. Plan: TIMMY Brambila, ARTIFICIAL CANDY MAKER, EMERGENCY DEPARTMENT RN
--- NOTE | 2020-03-24 15:03 | CM.ED ---
SOCIAL WORK Met with patient in room. Patient states has been speaking with Marianne at [facility] and is wanting to be admitted for detox. Dr. South updated. Call to Marlena at [facility] to update on patient's status. Marlena mary will be in tomorrow to see patient. Plan: Anticipate admission to [facility] for medical withdraw management. Lazaro Brambila, HOTEL CONTROLLER, REFRIGERATOR CABINETMAKER
--- NOTE | 2020-03-24 15:24 | CM.ED ---
SOCIAL WORK Release of Information for [facility] signed by patient and added to chart. Lazaro Brambila, OFFICE COPY SELECTOR, LIBRARY HISTORIAN
--- NOTE | 2020-03-24 15:41 | NURSING ---
[facility]
--- NOTE | 2020-03-24 15:42 | HP.PCM_ITS ---
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 Comment: [facility] Main [place]: Right upper lobe (3) History of pelvic inflammatory disease Status: Chronic (4) Septic pulmonary embolism Status: Chronic (5) Hepatitis C Status: Chronic (6) Pulmonary artery aneurysm Status: Chronic (7) IVDU (intravenous drug user) Status: Chronic (8) Bipolar 1 disorder Status: Chronic History of Present Illness Date of Admission: 03/24/20 Chief Complaint: opiate abuse The patient is a 24 year old F with pmhx of opiate abuse, nicotina abuse, 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 She has been sober since she was discharged from the [facility] where she was treated for several months with tricuspid endocarditis complicated by pulmonary septic emboli and pulmonary arterial hemorrhage. She was at the [facility] program today and fell asleep, admitted to using. She admits that she started using again this week. This was triggered by giving a ride to someone who was using. She currently denies any withdrawal symptoms stating she is not withdrawing because she used at 1100 today whatever amount was left over in an old needle. She was shooting up into the left AC and left hand about 0.5 grams per day. [] Past Medical History Past Medical History (Chronic Problems): Chronic Problems (Last Updated 02/11/20 @ 15:10 by Francis Spears) s/p coil embolization of bronchial and intercostal arteries (Chronic 08/27/19) [facility] Main [place]: Right upper lobe History of bronchoscopy (Chronic 08/25/19) History of pelvic inflammatory disease (Chronic) Septic pulmonary embolism (Chronic) Antepartum anemia (Chronic) Status post insertion of percutaneous endoscopic gastrostomy (PEG) tube (Chronic) History of tracheostomy (Chronic) History of herpes genitalis (Chronic) History of incarceration (Chronic) History of heroin abuse (Chronic) 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) Hepatitis C (Chronic) History of cor pulmonale (Chronic) History of pulmonary embolism (Chronic) 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) IVDU (intravenous drug user) (Chronic) Bipolar 1 disorder (Chronic) Medical History: Medical History (Last Updated 02/11/20 @ 15:10 by Francis Spears) History of pelvic inflammatory disease (Chronic) Z87.42 Septic pulmonary embolism (Chronic) I26.90 Antepartum anemia (Chronic) O99.019 Tobacco use during , antepartum (Inactive) O99.330 History of herpes genitalis (Chronic) Z86.19 History of incarceration (Chronic) Z78.9 History of heroin abuse (Chronic) F11.11 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) I33.0, B95.61 Hepatitis C (Chronic) B19.20 History of cor pulmonale (Chronic) Z86.79 History of pulmonary embolism (Chronic) Z86.711 Endocarditis of tricuspid valve (Chronic) I07.9 Pulmonary artery aneurysm (Chronic) I28.1 IVDU (intravenous drug user) (Chronic) F19.90 Bipolar 1 disorder (Chronic) F31.9 H/O emotional problems F48.9 Heart murmur R01.1 Hemorrhoids K64.9 History of MRSA infection Z86.14 History of alcohol abuse F10.11 History of blood clots Z86.718 History of cardiac arrest Z86.74 History of drug abuse F19.11 History of endocarditis Z86.79 History of pneumonia Z87.01 Incontinence R32 Migraines G43.909 Allergies No Known Allergies Allergy (Verified 03/24/20 11:25) Home Medications: Ambulatory Orders Medication Instructions Recorded Diltiazem HCl [Cardizem Cd] 120 mg PO DAILY 03/16/20 Quetiapine Fumarate [Quetiapine 150 mg PO DAILY 03/16/20 Fumarate ER] Valacyclovir HCl [Valacyclovir] 500 mg PO DAILY 03/16/20 Naloxone HCl [Narcan] 4 mg NS X1 PRN #1 spray 03/24/20 Surgical History: Surgical History (Last Reviewed 11/30/19 @ 18:33 by Lucy Whittaker) s/p coil embolization of bronchial and intercostal arteries (Chronic) Onset Date: 08/27/19 [facility] Main [place]: Right upper lobe History of bronchoscopy (Chronic) Onset Date: 08/25/19 Z98.890 Status post insertion of percutaneous endoscopic gastrostomy (PEG) tube (Chronic) Z93.1 History of tracheostomy (Chronic) Z98.890 Surgical History: no surgical history Psychiatric History: Bipolar POSTDOCTORAL SCIENTIST History: No pertinent POSTDOCTORAL SCIENTIST history Lives: Alone Smoking Status: Current every day smoker Tobacco Use: Cigarettes Alcohol: None Drugs: - - fentanyl - *Family History Paternal Family History: Family History (Last Reviewed 11/30/19 @ 18:33 by Lucy Whittaker) Mother Bipolar 1 disorder Depression Anxiety Suicide STD (female) drug addiciton Grandmother Breast cancer Arthritis Sister Depression Father Alcoholism Other Thyroid disorder History Items: No pertinent history Maternal Family History: Family History (Last Reviewed 11/30/19 @ 18:33 by Lucy Whittaker) Mother Bipolar 1 disorder Depression Anxiety Suicide STD (female) drug addiciton Grandmother Breast cancer Arthritis Sister Depression Father Alcoholism Other Thyroid disorder History Items: No pertinent history Review of Systems Constitutional: Denies: Chills, Fever, Weight Change HEENT: Denies: Head Aches, Sinus Congestion, Sinus Drainage Cardiovascular: Denies: Chest Pain, Palpitations Respiratory: Denies: Cough, Shortness of breath at rest, Sputum production Gastrointestinal: Denies: Abdominal Pain, Nausea, Vomiting Genitourinary: Denies: Dysuria Musculoskeletal: Denies: Joint Pain, Joint Tenderness Skin: Denies: Rash, Wounds Neurological: Denies: Numbness, Tingling, Focal weakness Psychiatric: Denies: Anxiety, Depression, Homicidal Ideations, Suicidal Ideations Hematologic/ Lymphatic: Denies: Easy Bruising, Easy Bleeding VTE Information - Inpt Only VTE Present on Admission: No VTE Mechan Device Prophylaxis: None VTE Pharm Prophylaxis ordered?: Yes Patient Problems: Active and Suspected Problems (Last Updated 02/11/20 @ 15:10 by Francis Spears) Opiate overdose (Acute) Opiate addiction (Acute) - Physical Exam Vitals/I&O's: Vital Signs Temp Pulse Resp BP Pulse Ox 98.4 F 82 16 106/64 99 03/24/20 15:35 03/24/20 15:35 03/24/20 15:35 03/24/20 15:35 03/24/20 15:35 Oxygen Delivery Method Room Air Weight: 142 lb 13.753 oz Body Mass Index (BMI) 25.2 Finger Stick Blood Glucose 377 General: Alert, Oriented x3, Cooperative HEENT: Atraumatic, PERRLA, EOMI, Normocephalic Neck: Supple, No JVD, Negative Carotid Bruits Lungs: Clear to auscultation, Normal air movement Cardiovascular: Regular rate, Murmur - 3/6 systolic murmur audible at all positions, worst at 4th ICS RSB Abdomen: Bowel Sounds Present, Soft, Non Tender Extremities: No edema, Capillary Refill Less than 3 Seconds Skin: No rashes, No breakdown Musculoskeletal: No Tenderness to Palpation of Joints or Extremities Neurological: Cranial nerves II-XII grossly intact Psych/Mental Status: Normal Affect, Appropriate, Alert and oriented to time, p lace, person, mood and affect Laboratory Results 03/24/20 15:13: Urine Opiates Screen Pending, Urine Methadone Screen Pending, Ur Barbiturates Screen Pending, Ur Phencyclidine Scrn Pending, Ur Amphetamines Screen Pending, U Methamphetamin-MDMA Pending, U Benzodiazepines Scrn Pending, Urine Cocaine Screen Pending, U Cannabinoids Screen Pending, Ur Drug Screen Comment 03/24/20 15:30: WBC Pending, RBC Pending, Hgb Pending, Hct Pending, MCV Pending, MCH Pending, MCHC Pending, RDW Std Deviation Pending, RDW Coeff of Ashley Pending, Plt Count Pending, Neut % (Auto) Pending, Absolute Neuts (auto) Pending 03/24/20 15:30: Sodium Pending, Potassium Pending, Chloride Pending, Carbon Dioxide Pending, Anion Gap Pending, BUN Pending, Creatinine Pending, Est GFR (MDRD) Af Amer Pending, Est GFR (MDRD) Non-Af Pending, BUN/Creatinine Ratio Pending, Glucose Pending, Calcium Pending, Total Bilirubin Pending, AST Pending, ALT Pending, Alkaline Phosphatase Pending, Total Protein Pending, Albumin Pending 03/24/20 15:30: Ethyl Alcohol Pending 03/24/20 15:30: Serum , Qual Pending Assessment/Plan All Active Problems (Last Updated 02/11/20 @ 15:10 by Francis Spears) Opiate overdose (Acute) Opiate addiction (Acute) Fever (Acute) 35 weeks gestation of (Resolved) Cellulitis of arm, right (Resolved) Cellulitis of external ear, bilateral (Resolved) Decreased movement (Resolved) Sprain of foot, left (Resolved) 1. Opiate abuse, requesting detox - pt does not want subutex stating that she does not need it because she has only been using one week, and that it will make her addiction worse. She requests only PRN medications. She last used at 1100 and is not in withdrawal yet. Labs pending. 2. 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 Pt needs to remain sober x 6 - 12 months in order to qualify for tricuspid valve replacement. Loud murmur on exam. 3. Nicotine abuse - 1/2 ppd - patch 4. Hx bipolar 1 - seroquel 5. Hx genital herpes - valtrex 6. Hx Hep C 7. HTN - cardizem DVT ppx: early ambulation DC plannin program at [facility] This patient was seen by Ham Rivera PA-C under the supervision of Dr. Jones. 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) I33.0, B95.61 Hepatitis C (Chronic) B19.20 History of cor pulmonale (Chronic) Z86.79 History of pulmonary embolism (Chronic) Z86.711 Endocarditis of tricuspid valve (Chronic) I07.9 Pulmonary artery aneurysm (Chronic) I28.1 IVDU (intravenous drug user) (Chronic) F19.90 Bipolar 1 disorder (Chronic) F31.9 H/O emotional problems F48.9 Heart murmur R01.1 Hemorrhoids K64.9 History of MRSA infection Z86.14 History of alcohol abuse F10.11 History of blood clots Z86.718 History of cardiac arrest Z86.74 History of drug abuse F19.11 History of endocarditis Z86.79 History of pneumonia Z87.01 Incontinence R32 Migraines G43.909 Allergies No Known Allergies Allergy (Verified 03/24/20 11:25) Surgical History: Surgical History (Last Reviewed 11/30/19 @ 18:33 by Lucy Whittaker) s/p coil embolization of bronchial and intercostal arteries (Chronic) Onset Date: 08/27/19 [facility] Main [place]: Right upper lobe History of bronchoscopy (Chronic) Onset Date: 08/25/19 Z98.890 Status post insertion of percutaneous endoscopic gastrostomy (PEG) tube (Chronic) Z93.1 History of tracheostomy (Chronic) Z98.890 - *Family History Paternal Family History: Family History (Last Reviewed 11/30/19 @ 18:33 by Lucy Whittaker) Mother Bipolar 1 disorder Depression Anxiety Suicide STD (female) drug addiciton Grandmother Breast cancer Arthritis Sister Depression Father Alcoholism Other Thyroid disorder Maternal Family History: Family History (Last Reviewed 11/30/19 @ 18:33 by Lucy Whittaker) Mother Bipolar 1 disorder Depression Anxiety Suicide STD (female) drug addiciton Grandmother Breast cancer Arthritis Sister Depression Father Alcoholism Other Thyroid disorder - Physical Exam Vitals/I&O's: Vital Signs Temp Pulse Resp BP Pulse Ox 98.4 F 81 18 106/64 99 03/24/20 15:56 03/24/20 15:56 03/24/20 15:56 03/24/20 15:56 03/24/20 15:56 Oxygen Delivery Method Room Air Weight: 142 lb 13.753 oz Body Mass Index (BMI) 25.2 Finger Stick Blood Glucose 377 Laboratory Results 03/24/20 15:13: Urine Opiates Screen POSITIVE H, Urine Methadone Screen NEGATIVE, Ur Barbiturates Screen NEGATIVE, Ur Phencyclidine Scrn NEGATIVE, Ur Amphetamines Screen NEGATIVE, U Methamphetamin-MDMA NEGATIVE, U Benzodiazepines Scrn NEGATIVE, Urine Cocaine Screen NEGATIVE, U Cannabinoids Screen NEGATIVE, Ur Drug Screen Comment 03/24/20 15:30: WBC 6.6, RBC 4.18 L, Hgb 12.0, Hct 38.6, MCV 92.3, MCH 28.7, MCHC 31.1 L, RDW Std Deviation 43.7, RDW Coeff of Ashley 12.8, Plt Count 272, MPV 10.4, Immature Gran % (Auto) 0.300, Neut % (Auto) 48.2, Lymph % (Auto) 35.2, [place] % (Auto) 10.4 H, Eos % (Auto) 5.1 H, Baso % (Auto) 0.8, Absolute Neuts (auto) 3.2, Absolute Lymphs (auto) 2.33, Nucleated RBC % 0 03/24/20 15:30: Sodium 141, Potassium 3.5, Chloride 110 H, Carbon Dioxide 28.0, Anion Gap 3 L, BUN 5 L, Creatinine 0.70, Estim Creat Clear Calc 100.75, Est GFR (MDRD) Af Amer 129, Est GFR (MDRD) Non-Af 107, BUN/Creatinine Ratio 7.1 L, Glucose 101, Calcium 8.7, Total Bilirubin 0.60, AST 17, ALT 31, Alkaline Phosphatase 98, Total Protein 7.9, Albumin 3.5, Globulin 4.4 H, Albumin/Globulin Ratio 0.8 L 03/24/20 15:30: Ethyl Alcohol < 3.0 03/24/20 15:30: Serum , Qual Pending Addendum: Dr. Jones I personally examined the patient and reviewed the chart. I agree with the above. 24-year-old female with recent history of tricuspid vegetations that were treated on outside hospital. She was clean for about 5 months but then started using again today which is best to meet with her counselor [facility]. She used fentanyl effect 11 AM. She is told that undergo detox will come at [facility] will likely be arrested and therefore she has excepted detox. Is not want Suboxone as she is afraid she will get addicted to it therefore she will just beyond the PRN medications. She thinks that will not be this bad since she is only been using for about a week. Inpatient E&M: 75125 Init Hosp L3
[2020-03-24 15:53] LABS: Absolute Lymphocyte Count 2.33 X10^3/uL (0.83-4.51); Absolute Neutrophil Count 3.2 X10^3/uL (2.0-7.7); Basophil# 0.05 X10^3/uL; Basophil% 0.8 % (0-1); Eosinophil# 0.34 X10^3/uL; Eosinophils% 5.1 % (0-5); Hematocrit 38.6 % (37-47); Lymphocyte # 2.33 X10^3/ul (4.0); Lymphocyte % 35.2 % (19-41); Mean Corp Hgb Conc 31.1 g/dL (32-36); Mean Corpuscular Hgb 28.7 pg (27.0-32.0); Mean Corpuscular Volume 92.3 fL (81-99); Mean Platelet Vol. 10.4 fl (6.2-12.0); Monocyte# 0.69 X10^3/uL; Monocyte% 10.4 % (0-10); NRBC Flagged by Analyzer 0 % (0-5); Neutrophil # 3.19 X10^3/uL (2.7-7.7); Neutrophil % 48.2 % (47-70); Platelet Count 272 K/mm3 (150-450); RBC Distribution Width CV 12.8 % (11.6-14.6); RBC Distribution Width SD 43.7 fl (35.1-43.9); Red Blood Count 4.18 M/mm3 (4.2-5.4); White Blood Count 6.6 K/mm3 (4.4-11.0)
[2020-03-24 15:59] LABS: ALB/GLOB Ratio 0.8 RATIO (0.9-2.4); AST(SGOT) 17 U/L (15-37); Alanine Aminotransfer ALT/SGPT 31 U/L (13-56); Albumin, Serum 3.5 g/dL (3.2-5.0); Alkaline Phosphatase 98 U/L (45-117); Anion Gap 3 (5-15); BUN 5 mg/dL (7-18); BUN/Creat Ratio 7.1 RATIO (10-20); Calcium,Total 8.7 mg/dL (8.5-10.1); Chloride 110 mmol/L (98-107); EST Glomerular Filtration Rate 107 mL/min (>60); Est Glom Filt Rate - Afr Amer 129 mL/min (>60); Estimated Creatinine Clearance 100.75 ml/min; Globulin 4.4 g/dL (2.2-4.2); Glucose 101 mg/dL (74-106); Potassium 3.5 mmol/L (3.5-5.1); Protein, Total 7.9 g/dL (6.4-8.2); Sodium Level 141 mmol/L (136-145)
[2020-03-24 16:09] LABS: Amphetamine Urine VISTA NEGATIVE (<1000 ng/mL); Barbiturate Urine VISTA NEGATIVE (< 200 ng/mL); Benzodiazepine Urine VISTA NEGATIVE (< 200 ng/mL); Cocaine Urine VISTA NEGATIVE (< 300 ng/mL); Ecstacy Urine VISTA NEGATIVE (< 500 ng/mL); Methadone Urine VISTA NEGATIVE (< 300 ng/mL); PCP Urine VISTA NEGATIVE (< 25 ng/mL); THC Urine VISTA NEGATIVE (< 50 ng/mL); Vista UDS pH Range 6
[2020-03-24 16:15] LABS: Alcohol, Blood (Medical)-Serum < 3.0 mg/dL
[2020-03-24 17:55] LABS: Internal QC Validated? YES +Cl - CLEAR BKGD; Pregnancy, Serum, hCG Quali. NEGATIVE Negative
[2020-03-25 02:32] VITALS: BP 97/66; PULSE 73; RESP 16; TEMP 37; O2SAT 98
[2020-03-25 07:41] VITALS: BP 103/64; PULSE 80; RESP 18; TEMP 36.7; O2SAT 98
[2020-03-25] MEDS: cloNIDine HCl 0.1 MG Tablet PO (07:48)
--- NOTE | 2020-03-25 09:31 | CASEMGMT ---
Social Work Note Pt is RAMP pt. SW placed a call to Marlena at [facility] and updated her that pt will need to be seen. Christie Thomas BENEFITS MANAGER, MERCHANDISE MARKER
--- NOTE | 2020-03-25 12:58 | ADDICTION ---
This typewriters functional tester met with patient in her room to complete ASAM assessment, MSE, DUDIT, ROIs and discharge planning. Patient was alert and oriented but presented with depressed mood and flat affect. She participated appropriately to situation. Patient plans to directly admit into the [facility] upon discharge from [facility]. This admit has been approved by [facility]'s Mold Design Engineer. This typewriters functional tester will fax completed assessments to [facility] upon client's discharge. She appears appropriate for the 4.0 LOC.
[2020-03-25] MEDS: Buprenorphine HCl 2 MG TAB.SUBL SL ×2 (13:24→20:43)
[2020-03-25 13:25] VITALS: BP 99/63; PULSE 78; RESP 18; TEMP 36.8; O2SAT 98
--- NOTE | 2020-03-25 13:27 | CHAPLAIN ---
Type of Pastoral Visit _x__ Initial Visit ___ Follow-up Visit ___ On-call Visit ___ General Patient Visit ___ Spiritual Assessment ___ Family Conference ___ Bereavement ___ Rapid Response ___ Code Blue ___ Other (describe below) Pastoral Care Referral From _x__ Patient ___ Family ___ Nurse ___ Physician ___ Pest Technician ___ Wrapper Hand ___ Other (describe below) Sacrament/Intervention ___ Active listening ___ Anointing ___ Hoahaoism ___ Bereavement ___ Communion ___ Gris exploration ___ ___ Life review ___ Prayer ___ Reconciliation ___ Sacrament of Sick _x__ Supportive presence ___ Wedding ___ Other (describe below) Pastoral Comments introduced self and role of paper carrier to patient; pt welcomed this paper carrier into room; pt reports that she is doing fine; pt states she has large family and good support; no other needs identified at this time
--- NOTE | 2020-03-25 13:46 | PN_ITS ---
<Ham Rivera - Last Filed: 03/25/20 13:46> Patient Problems: Active and Suspected Problems (Last Updated 02/11/20 @ 15:10 by Francis Spears) Opiate overdose (Acute) Opiate addiction (Acute) Reason for Visit: opiate withdrawal Subjective: Pt with increased withdrawal symptoms and agreeable to initiating subutex taper. C/O chills, restlessness, mild abd pain. No nausea/vomiting. No rhinitis or conjunctivitis. No muscle spasms. Vitals/I&O's: Vital Signs Temp Pulse Resp BP Pulse Ox 98.3 F 78 18 99/63 98 03/25/20 13:25 03/25/20 13:25 03/25/20 13:25 03/25/20 13:25 03/25/20 13:25 Oxygen Delivery Method Room Air Weight: 137 lb Body Mass Index (BMI) 24.3 Finger Stick Blood Glucose 377 Intake and Output for Last 24 Hours 03/23/20 03/24/20 03/25/20 23:59 23:59 23:59 Intake Total 150 / 150 600 / 600 Balance 150 / 150 600 / 600 General: Alert, Oriented x3, Cooperative HEENT: Atraumatic, PERRLA, EOMI, Normocephalic Neck: Supple, No JVD, Negative Carotid Bruits Lungs: Clear to auscultation, Normal air movement Cardiovascular: Regular rate, Murmur - 3/6 systolic murmur heard across heart but worse RSB 4th ICS Abdomen: Bowel Sounds Present, Soft, Non Tender Extremities: No edema, Capillary Refill Less than 3 Seconds Skin: No rashes, No breakdown, - - injection sites L AC and L hand dorsum without infectious changes Musculoskeletal: No Tenderness to Palpation of Joints or Extremities Neurological: Cranial nerves II-XII grossly intact Psych/Mental Status: Normal Affect, Appropriate Laboratory Results 03/24/20 15:13: Urine Opiates Screen POSITIVE H, Urine Methadone Screen NEGATIVE, Ur Barbiturates Screen NEGATIVE, Ur Phencyclidine Scrn NEGATIVE, Ur Amphetamines Screen NEGATIVE, U Methamphetamin-MDMA NEGATIVE, U Benzodiazepines Scrn NEGATIVE, Urine Cocaine Screen NEGATIVE, U Cannabinoids Screen NEGATIVE, Ur Drug Screen Comment 03/24/20 15:30: WBC 6.6, RBC 4.18 L, Hgb 12.0, Hct 38.6, MCV 92.3, MCH 28.7, MCHC 31.1 L, RDW Std Deviation 43.7, RDW Coeff of Ashley 12.8, Plt Count 272, MPV 10.4, Immature Gran % (Auto) 0.300, Neut % (Auto) 48.2, Lymph % (Auto) 35.2, [place] % (Auto) 10.4 H, Eos % (Auto) 5.1 H, Baso % (Auto) 0.8, Absolute Neuts (auto) 3.2, Absolute Lymphs (auto) 2.33, Nucleated RBC % 0 03/24/20 15:30: Sodium 141, Potassium 3.5, Chloride 110 H, Carbon Dioxide 28.0, Anion Gap 3 L, BUN 5 L, Creatinine 0.70, Estim Creat Clear Calc 100.75, Est GFR (MDRD) Af Amer 129, Est GFR (MDRD) Non-Af 107, BUN/Creatinine Ratio 7.1 L, Glucose 101, Calcium 8.7, Total Bilirubin 0.60, AST 17, ALT 31, Alkaline Phosphatase 98, Total Protein 7.9, Albumin 3.5, Globulin 4.4 H, Albumin/Globulin Ratio 0.8 L 03/24/20 15:30: Ethyl Alcohol < 3.0 03/24/20 15:30: Serum , Qual NEGATIVE Current Medications Buprenorphine HCl (Buprenorphine Hcl) 4 mg SL Q8H DARRIN; Taper Stop: 03/28/20 12:59 Last Admin: 03/25/20 13:24 Dose: 4 mg Documented by: Clonidine (Catapres) 0.1 mg PO Q8H PRN PRN PRN Reason: RESTLESSNESS Last Admin: 03/25/20 07:48 Dose: 0.1 mg Documented by: Dicyclomine HCl (Bentyl) 20 mg PO Q6H PRN PRN PRN Reason: Abdominal Discomfort Gabapentin (Neurontin) 300 mg PO Q8H PRN PRN PRN Reason: moderate to severe anxiety Hydroxyzine Pamoate (Vistaril Pamoate Capsule) 50 mg PO Q6H PRN PRN PRN Reason: mild anxiety Sodium Chloride () 250 mls @ 15 mls/hr IV .[id number] PRN PRN Reason: Saline Flush Sodium Chloride () 250 mls @ 15 mls/hr IV .[id number] PRN PRN Reason: Additional IVPB Infusion Loperamide HCl (Imodium) 2 mg PO Q4H PRN PRN PRN Reason: LOOSE STOOLS Methocarbamol (Methocarbamol) 1,500 mg PO Q6H PRN PRN PRN Reason: MUSCLE SPASM Ondansetron HCl (Zofran) 8 mg PO Q8H PRN PRN PRN Reason: NAUSEA Sodium Chloride () 10 - 40 ml IV UD PRN PRN Reason: SALINE FLUSH Trazodone HCl (Desyrel) 100 mg PO QHS PRN PRN PRN Reason: INSOMNIA STROKE Vital Signs/Narrative: Vital Signs Temp Pulse Resp BP Pulse Ox 03/25/20 13:25 98.3 F 78 18 99/63 98 Medical Necessity - Tobacco Use Smoking Status: Current every day smoker Tobacco Use: Cigarettes Assessment/Plan All Active Problems (Last Updated 02/11/20 @ 15:10 by Francis Spears) Opiate overdose (Acute) Opiate addiction (Acute) Fever (Acute) 35 weeks gestation of (Resolved) Cellulitis of arm, right (Resolved) Cellulitis of external ear, bilateral (Resolved) Decreased movement (Resolved) Sprain of foot, left (Resolved) 1. Opiate abuse, requesting detox - symptoms worse and now pt agreeable to subutex taper 2. 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 Pt needs to remain sober x 6 - 12 months in order to qualify for tricuspid valve replacement. Loud murmur on exam. 3. Nicotine abuse - 1/2 ppd - patch 4. Hx bipolar 1 - seroquel 5. Hx genital herpes - valtrex 6. Hx Hep C 7. HTN - cardizem DVT ppx: early ambulation [place] plann[place] This patient was seen by Ham Rivera PA-C under the supervision of Dr. Osman <Juwan Osman - Last Filed: 03/25/20 14:17> Vitals/I&O's: Vital Signs Temp Pulse Resp BP Pulse Ox 36.8 C 78 18 99/63 98 03/25/20 13:25 03/25/20 13:25 03/25/20 13:25 03/25/20 13:25 03/25/20 13:25 Oxygen Delivery Method Room Air Weight: 62.142 kg Body Mass Index (BMI) 24.3 Finger Stick Blood Glucose 377 Intake and Output for Last 24 Hours 03/23/20 03/24/20 03/25/20 23:59 23:59 23:59 Intake Total 150 / 150 600 / 600 Balance 150 / 150 600 / 600 General: Alert, Cooperative HEENT: Atraumatic, Normocephalic Neck: No Nodes, Trachea Midline Lungs: Clear to auscultation, Normal air movement, No rhonchi, No wheeze Cardiovascular: Regular rate, Regular Rhythm, Normal S1, Normal S2, Murmur Abdomen: Bowel Sounds Present, Soft, Non Tender, Non-Distended Extremities: No edema, No Calf Tenderness Skin: No rashes, No breakdown, - Psych/Mental Status: Normal Affect, Appropriate Laboratory Results 03/24/20 15:13: Urine Opiates Screen POSITIVE H, Urine Methadone Screen NEGATIVE, Ur Barbiturates Screen NEGATIVE, Ur Phencyclidine Scrn NEGATIVE, Ur Amphetamines Screen NEGATIVE, U Methamphetamin-MDMA NEGATIVE, U Benzodiazepines Scrn NEGATIVE, Urine Cocaine Screen NEGATIVE, U Cannabinoids Screen NEGATIVE, Ur Drug Screen Comment 03/24/20 15:30: WBC 6.6, RBC 4.18 L, Hgb 12.0, Hct 38.6, MCV 92.3, MCH 28.7, MCHC 31.1 L, RDW Std Deviation 43.7, RDW Coeff of Ashley 12.8, Plt Count 272, MPV 10.4, Immature Gran % (Auto) 0.300, Neut % (Auto) 48.2, Lymph % (Auto) 35.2, [place] % (Auto) 10.4 H, Eos % (Auto) 5.1 H, Baso % (Auto) 0.8, Absolute Neuts (auto) 3.2, Absolute Lymphs (auto) 2.33, Nucleated RBC % 0 03/24/20 15:30: Sodium 141, Potassium 3.5, Chloride 110 H, Carbon Dioxide 28.0, Anion Gap 3 L, BUN 5 L, Creatinine 0.70, Estim Creat Clear Calc 100.75, Est GFR (MDRD) Af Amer 129, Est GFR (MDRD) Non-Af 107, BUN/Creatinine Ratio 7.1 L, Glucose 101, Calcium 8.7, Total Bilirubin 0.60, AST 17, ALT 31, Alkaline Phosphatase 98, Total Protein 7.9, Albumin 3.5, Globulin 4.4 H, Albumin/Globulin Ratio 0.8 L 03/24/20 15:30: Ethyl Alcohol < 3.0 03/24/20 15:30: Serum , Qual NEGATIVE Current Medications Buprenorphine HCl (Buprenorphine Hcl) 4 mg SL Q8H DARRIN; Taper Stop: 03/28/20 12:59 Last Admin: 03/25/20 13:24 Dose: 4 mg Documented by: Clonidine (Catapres) 0.1 mg PO Q8H PRN PRN PRN Reason: RESTLESSNESS Last Admin: 03/25/20 07:48 Dose: 0.1 mg Documented by: Dicyclomine HCl (Bentyl) 20 mg PO Q6H PRN PRN PRN Reason: Abdominal Discomfort Gabapentin (Neurontin) 300 mg PO Q8H PRN PRN PRN Reason: moderate to severe anxiety Hydroxyzine Pamoate (Vistaril Pamoate Capsule) 50 mg PO Q6H PRN PRN PRN Reason: mild anxiety Sodium Chloride () 250 mls @ 15 mls/hr IV .[id number] PRN PRN Reason: Saline Flush Sodium Chloride () 250 mls @ 15 mls/hr IV .[id number] PRN PRN Reason: Additional IVPB Infusion Loperamide HCl (Imodium) 2 mg PO Q4H PRN PRN PRN Reason: LOOSE STOOLS Methocarbamol (Methocarbamol) 1,500 mg PO Q6H PRN PRN PRN Reason: MUSCLE SPASM Ondansetron HCl (Zofran) 8 mg PO Q8H PRN PRN PRN Reason: NAUSEA Sodium Chloride () 10 - 40 ml IV UD PRN PRN Reason: SALINE FLUSH Trazodone HCl (Desyrel) 100 mg PO QHS PRN PRN PRN Reason: INSOMNIA STROKE Vital Signs/Narrative: Vital Signs Temp Pulse Resp BP Pulse Ox 03/25/20 13:25 36.8 C 78 18 99/63 98 Assessment/Plan 1. opiate withdrawal: Discussed with the patient that given her symptoms that buprenorphine taper would be in her benefit so that she can resume her event at 180. She agreed. I told her we will treat her other somatic complaints with her medications. Inpatient E&M: 07633 Subs Hosp L2
[2020-03-25 16:08] VITALS: BP 101/63; PULSE 81; RESP 16; TEMP 36.8; O2SAT 98
[2020-03-25 20:37] VITALS: BP 93/69; PULSE 76; RESP 16; TEMP 36.8; O2SAT 98
[2020-03-26 02:31] VITALS: BP 93/68; PULSE 75; RESP 17; TEMP 36.7; O2SAT 97
[2020-03-26] MEDS: Buprenorphine HCl 2 MG TAB.SUBL SL ×3 (04:56→20:33)
[2020-03-26 09:20] VITALS: BP 92/55; PULSE 62; RESP 16; TEMP 36.6; O2SAT 99
--- NOTE | 2020-03-26 10:53 | PCM.PN.HOSP ---
<Ham Rivera - Last Filed: 03/26/20 10:53> Patient Problems: Active and Suspected Problems (Last Updated 02/11/20 @ 15:10 by Francis Spears) Opiate overdose (Acute) Opiate addiction (Acute) Reason for Visit: opiate withdrawal Subjective: Pt resting comfortably in bed, sleeping, easily awoken. Pt reports all symptoms from yesterday resolved and no withdrawal symptoms at this time. Vitals/I&O's: Vital Signs Temp Pulse Resp BP Pulse Ox 97.9 F 62 16 92/55 L 99 03/26/20 09:20 03/26/20 09:20 03/26/20 09:20 03/26/20 09:20 03/26/20 09:20 Oxygen Delivery Method Room Air Weight: 137 lb Body Mass Index (BMI) 24.3 Finger Stick Blood Glucose 377 Intake and Output for Last 24 Hours 03/24/20 03/25/20 03/26/20 23:59 23:59 23:59 Intake Total 150 / 150 1400 / 1400 770 / 770 Balance 150 / 150 1400 / 1400 770 / 770 General: Alert, Oriented x3, Cooperative HEENT: Atraumatic, PERRLA, EOMI, Normocephalic Neck: Supple, No JVD, Negative Carotid Bruits Lungs: Clear to auscultation, Normal air movement Cardiovascular: Regular rate, No murmurs Abdomen: Bowel Sounds Present, Soft, Non Tender Extremities: No edema, Capillary Refill Less than 3 Seconds Skin: No rashes, No breakdown Musculoskeletal: No Tenderness to Palpation of Joints or Extremities Neurological: Cranial nerves II-XII grossly intact Psych/Mental Status: Normal Affect, Appropriate, Alert and oriented to time, place, person, mood and affect Current Medications Buprenorphine HCl (Buprenorphine Hcl) 4 mg SL Q8H DARRIN; Taper Stop: 03/28/20 12:59 Last Admin: 03/26/20 04:56 Dose: 4 mg Documented by: Clonidine (Catapres) 0.1 mg PO Q8H PRN PRN PRN Reason: RESTLESSNESS Last Admin: 03/25/20 07:48 Dose: 0.1 mg Documented by: Dicyclomine HCl (Bentyl) 20 mg PO Q6H PRN PRN PRN Reason: Abdominal Discomfort Gabapentin (Neurontin) 300 mg PO Q8H PRN PRN PRN Reason: moderate to severe anxiety Hydroxyzine Pamoate (Vistaril Pamoate Capsule) 50 mg PO Q6H PRN PRN PRN Reason: mild anxiety Sodium Chloride () 250 mls @ 15 mls/hr IV .[id number] PRN PRN Reason: Saline Flush Sodium Chloride () 250 mls @ 15 mls/hr IV .[id number] PRN PRN Reason: Additional IVPB Infusion Loperamide HCl (Imodium) 2 mg PO Q4H PRN PRN PRN Reason: LOOSE STOOLS Methocarbamol (Methocarbamol) 1,500 mg PO Q6H PRN PRN PRN Reason: MUSCLE SPASM Ondansetron HCl (Zofran) 8 mg PO Q8H PRN PRN PRN Reason: NAUSEA Sodium Chloride () 10 - 40 ml IV UD PRN PRN Reason: SALINE FLUSH Trazodone HCl (Desyrel) 100 mg PO QHS PRN PRN PRN Reason: INSOMNIA STROKE Vital Signs/Narrative: Vital Signs Temp Pulse Resp BP Pulse Ox 03/26/20 09:20 97.9 F 62 16 92/55 L 99 Medical Necessity - Tobacco Use Smoking Status: Current every day smoker Tobacco Use: Cigarettes Assessment/Plan All Active Problems (Last Updated 02/11/20 @ 15:10 by Francis Spears) Opiate overdose (Acute) Opiate addiction (Acute) Fever (Acute) 35 weeks gestation of (Resolved) Cellulitis of arm, right (Resolved) Cellulitis of external ear, bilateral (Resolved) Decreased movement (Resolved) Sprain of foot, left (Resolved) 1. Opiate abuse, requesting detox - symptoms improved. continue subutex taper. 2. 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 Pt needs to remain sober x 6 - 12 months in order to qualify for tricuspid valve replacement. Loud murmur on exam. 3. Nicotine abuse - 1/2 ppd - patch 4. Hx bipolar 1 - seroquel 5. Hx genital herpes - valtrex 6. Hx Hep C 7. HTN - cardizem DVT ppx: [place] This patient was seen by Ham Rivera PA-C under the supervision of Dr. Osman <Juwan Osman - Last Filed: 03/26/20 11:00> Subjective: Denies any current complaints Vitals/I&O's: Vital Signs Temp Pulse Resp BP Pulse Ox 36.6 C 62 16 92/55 L 99 03/26/20 09:20 03/26/20 09:20 03/26/20 09:20 03/26/20 09:20 03/26/20 09:20 Oxygen Delivery Method Room Air Weight: 62.142 kg Body Mass Index (BMI) 24.3 Finger Stick Blood Glucose 377 Intake and Output for Last 24 Hours 03/24/20 03/25/20 03/26/20 23:59 23:59 23:59 Intake Total 150 / 150 1400 / 1400 770 / 770 Balance 150 / 150 1400 / 1400 770 / 770 General: Alert, Cooperative HEENT: Atraumatic, Normocephalic Psych/Mental Status: Normal Affect, Appropriate Current Medications Buprenorphine HCl (Buprenorphine Hcl) 4 mg SL Q8H DARRIN; Taper Stop: 03/28/20 12:59 Last Admin: 03/26/20 04:56 Dose: 4 mg Documented by: Clonidine (Catapres) 0.1 mg PO Q8H PRN PRN PRN Reason: RESTLESSNESS Last Admin: 03/25/20 07:48 Dose: 0.1 mg Documented by: Dicyclomine HCl (Bentyl) 20 mg PO Q6H PRN PRN PRN Reason: Abdominal Discomfort Gabapentin (Neurontin) 300 mg PO Q8H PRN PRN PRN Reason: moderate to severe anxiety Hydroxyzine Pamoate (Vistaril Pamoate Capsule) 50 mg PO Q6H PRN PRN PRN Reason: mild anxiety Sodium Chloride () 250 mls @ 15 mls/hr IV .[id number] PRN PRN Reason: Saline Flush Sodium Chloride () 250 mls @ 15 mls/hr IV .[id number] PRN PRN Reason: Additional IVPB Infusion Loperamide HCl (Imodium) 2 mg PO Q4H PRN PRN PRN Reason: LOOSE STOOLS Methocarbamol (Methocarbamol) 1,500 mg PO Q6H PRN PRN PRN Reason: MUSCLE SPASM Ondansetron HCl (Zofran) 8 mg PO Q8H PRN PRN PRN Reason: NAUSEA Sodium Chloride () 10 - 40 ml IV UD PRN PRN Reason: SALINE FLUSH Trazodone HCl (Desyrel) 100 mg PO QHS PRN PRN PRN Reason: INSOMNIA STROKE Vital Signs/Narrative: Vital Signs Temp Pulse Resp BP Pulse Ox 03/26/20 09:20 36.6 C 62 16 92/55 L 99 Assessment/Plan Patient seen and examined independently. Data reviewed. I agree with the above note by the physician acute care certified nursing assistant. 1. Acute opiate withdrawal: Ongoing. Patient seems doing pretty well from that. Continue with buprenorphine taper which will take the patient through the morning of the . Afterwards, patient can be discharged and follow-up with [facility] for further addiction management. Inpatient E&M: 19523 Subs Hosp L2
[2020-03-26 14:35] VITALS: BP 93/55; PULSE 67; RESP 18; TEMP 36.6; O2SAT 97
[2020-03-26 20:29] VITALS: BP 99/61; PULSE 72; RESP 16; TEMP 36.6; O2SAT 99
[2020-03-27 05:10] VITALS: BP 91/58; PULSE 65; RESP 16; TEMP 36.6; O2SAT 100
[2020-03-27] MEDS: Buprenorphine HCl 2 MG TAB.SUBL SL ×2 (05:11→12:58)
[2020-03-27 10:16] VITALS: BP 92/53; PULSE 77; RESP 16; TEMP 36.6; O2SAT 99
--- NOTE | 2020-03-27 11:15 | DCINST_ITS ---
- Discharge Diagnoses Current Active Problems: Current Active and Chronic Problems (Last Updated 02/11/20 @ 15:10 by Francis Spears) Opiate overdose (Acute) Opiate addiction (Acute) You will use the following diet at home:: No restrictions Your food should be the consistency of: Regular Your liquids should be the consistency of: Regular/Thin Discharge Activity: Return to Normal Activity Instructions: ED Abuse Narcotic, ED Overdose Opiate Allergies/Adverse Reactions: Allergies No Known Allergies Allergy (Verified 03/24/20 11:25) Medications to take at Discharge Diltiazem HCl [Cardizem Cd] 120 mg PO DAILY 03/16/20 Quetiapine Fumarate [Quetiapine Fumarate ER] 150 mg PO DAILY 03/16/20 Valacyclovir HCl [Valacyclovir] 500 mg PO DAILY 03/16/20 Naloxone HCl [Narcan] 4 mg NS X1 PRN #1 spray 03/24/20 The following prescriptions were given: Naloxone HCl [Narcan] 4 mg NS X1 PRN #1 spray PRN Reason: overdose Prescription Printed Primary Care Physician: Tamanna Vallejo MD [Primary Care Provider] - As soon as possible [employer] [STAFF PHYSICIAN] - As soon as possible Test Results: Test results from this visit will be discussed in further detail at your follow- up appointment, if applicable. Proposed Discharge Date: 03/27/20
--- NOTE | 2020-03-27 11:53 | PCM.DC.SUM ---
<Ham Rivera - Last Filed: 03/27/20 11:53> Discharge Date and Diagnosis - Problem List Patient Problems: Active and Suspected Problems (Last Updated 02/11/20 @ 15:10 by Francis Spears) Opiate overdose (Acute) Opiate addiction (Acute) Date of Admission: 03/24/20 Date of Discharge: 03/27/20 - Primary Discharge Diagnosis Acute Problems: Active Problems (Last Updated 02/11/20 @ 15:10 by Francis Spears) Opiate overdose (Acute) Opiate addiction (Acute) - Secondary Discharge Diagnosis Chronic Problems: Chronic Problems (Last Updated 02/11/20 @ 15:10 by Francis Spears) s/p coil embolization of bronchial and intercostal arteries (Chronic 08/27/19) [facility] [place]: Right upper lobe History of bronchoscopy (Chronic 08/25/19) History of pelvic inflammatory disease (Chronic) Septic pulmonary embolism (Chronic) Antepartum anemia (Chronic) Status post insertion of percutaneous endoscopic gastrostomy (PEG) tube (Chronic) History of tracheostomy (Chronic) History of herpes genitalis (Chronic) History of incarceration (Chronic) History of heroin abuse (Chronic) 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) Hepatitis C (Chronic) History of cor pulmonale (Chronic) History of pulmonary embolism (Chronic) 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 She was at the [address] [place] [address] and found to be under the influence of opiates. She needs to remain sober for 6 to 12 months in order to have a tricuspid valve surgery and she desired to get clean again. She had started using approximately 5 days prior reporting about half a gram of fentanyl injected into her left hand and AC daily. She had no cellulitic changes. At the time of presentation she did not have any withdrawal symptoms and did not want to start the buprenorphine taper, stating concerns that she did not want to just get addicted to that she felt since she had only been using for 5 days she would not have a significant withdrawal. She is admitted to the medical surgical floor. The following day she had increased symptoms and was initiated on the buprenorphine taper. She completed the detox program with an unremarkable course. She was discharged home to stay with her grandma for the rest of the day until she is able to follow-up with the [facility] on Saturday. She was discharged home in stable condition. She will also need follow-up with her PCP in 1 to 2 weeks. This patient was seen by Ham Rivera PA-C under the supervision of Doctor Dawson. [] Patient Problems: Active and Suspected Problems (Last Updated 02/11/20 @ 15:10 by Francis Spears) Opiate overdose (Acute) Opiate addiction (Acute) - Physical Exam Vitals/I&O's: Vital Signs Temp Pulse Resp BP Pulse Ox 97.8 F 77 16 92/53 L 99 03/27/20 10:16 03/27/20 10:16 03/27/20 10:16 03/27/20 10:16 03/27/20 10:16 Oxygen Delivery Method Room Air Weight: 137 lb Body Mass Index (BMI) 24.3 Finger Stick Blood Glucose 377 Intake and Output for Last 24 Hours 03/25/20 03/26/20 03/27/20 23:59 23:59 23:59 Intake Total 1400 / 1400 1850 / 2140 340 / 340 Balance 1400 / 1400 1850 / 2140 340 / 340 General: Alert, Oriented x3, Cooperative HEENT: Atraumatic, PERRLA, EOMI, Normocephalic Neck: Supple, No JVD, Negative Carotid Bruits Lungs: Clear to auscultation, Normal air movement Cardiovascular: Regular rate, No murmurs Abdomen: Bowel Sounds Present, Soft, Non Tender Extremities: No edema, Capillary Refill Less than 3 Seconds Skin: No rashes, No breakdown Musculoskeletal: No Tenderness to Palpation of Joints or Extremities Neurological: Cranial nerves II-XII grossly intact Psych/Mental Status: Normal Affect, Appropriate, Alert and oriented to time, place, person, mood and affect Current Medications Buprenorphine HCl (Buprenorphine Hcl) 2 mg SL Q8H DARRIN; Taper Stop: 03/28/20 12:59 Last Admin: 03/27/20 05:11 Dose: 2 mg Documented by: Clonidine (Catapres) 0.1 mg PO Q8H PRN PRN PRN Reason: RESTLESSNESS Last Admin: 03/25/20 07:48 Dose: 0.1 mg Documented by: Dicyclomine HCl (Bentyl) 20 mg PO Q6H PRN PRN PRN Reason: Abdominal Discomfort Gabapentin (Neurontin) 300 mg PO Q8H PRN PRN PRN Reason: moderate to severe anxiety Hydroxyzine Pamoate (Vistaril Pamoate Capsule) 50 mg PO Q6H PRN PRN PRN Reason: mild anxiety Sodium Chloride () 250 mls @ 15 mls/hr IV .[id number] PRN PRN Reason: Saline Flush Sodium Chloride () 250 mls @ 15 mls/hr IV .[id number] PRN PRN Reason: Additional IVPB Infusion Loperamide HCl (Imodium) 2 mg PO Q4H PRN PRN PRN Reason: LOOSE STOOLS Methocarbamol (Methocarbamol) 1,500 mg PO Q6H PRN PRN PRN Reason: MUSCLE SPASM Ondansetron HCl (Zofran) 8 mg PO Q8H PRN PRN PRN Reason: NAUSEA Sodium Chloride () 10 - 40 ml IV UD PRN PRN Reason: SALINE FLUSH Trazodone HCl (Desyrel) 100 mg PO QHS PRN PRN PRN Reason: INSOMNIA Discharge Diet: No Restrictions Discharge Activity: Return to Normal Activity Home Medications: Medications to take at Discharge Diltiazem HCl [Cardizem Cd] 120 mg PO DAILY 03/16/20 Quetiapine Fumarate [Quetiapine Fumarate ER] 150 mg PO DAILY 03/16/20 Valacyclovir HCl [Valacyclovir] 500 mg PO DAILY 03/16/20 Naloxone HCl [Narcan] 4 mg NS X1 PRN #1 spray 03/24/20 Following Prescrptions Were Given to Patient: Naloxone HCl [Narcan] 4 mg NS X1 PRN #1 spray PRN Reason: overdose Prescription Printed Primary Care Physician: Tamanna Vallejo MD [Primary Care Provider] - As soon as possible [employer] [STAFF PHYSICIAN] - As soon as possible Patient Instructions: ED Abuse Narcotic, ED Overdose Opiate Disposition: Home Minutes spent on discharge:: 35 Patient Condition:: Stable Medical Necessity - Tobacco Use Smoking Status: Current every day smoker Tobacco Use: Cigarettes Meaningful Use Info Meaningful Use Diagnoses (Choose all that apply): None applicable <Juwan Osman Last Filed: 03/27/20 12:19> Discharge Date and Diagnosis - Primary Discharge Diagnosis Acute Problems: Active Problems (Last Updated 02/11/20 @ 15:10 by Francis Spears) Opiate overdose (Acute) Opiate addiction (Acute) - Secondary Discharge Diagnosis Chronic Problems: Chronic Problems (Last Updated 02/11/20 @ 15:10 by Francis Spears) s/p coil embolization of bronchial and intercostal arteries (Chronic 08/27/19) [facility] [place]: Right upper lobe History of bronchoscopy (Chronic 08/25/19) History of pelvic inflammatory disease (Chronic) Septic pulmonary embolism (Chronic) Antepartum anemia (Chronic) Status post insertion of percutaneous endoscopic gastrostomy (PEG) tube (Chronic) History of tracheostomy (Chronic) History of herpes genitalis (Chronic) History of incarceration (Chronic) History of heroin abuse (Chronic) 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 Data reviewed. I agree with the above note by the physician program services assistant. The patient is a 24 year old F presents with acute opiate withdrawal. Patient had been sober to 5 months, only to relapse for 1 week. Her symptoms were minimal and reluctantly agreed to buprenorphine. Her course was uncomplicated. Patient will be discharged today where she will go to her grandparent's tonight, then go to [facility] tomorrow. [] - Physical Exam Vitals/I&O's: Vital Signs Temp Pulse Resp BP Pulse Ox 36.6 C 77 16 92/53 L 99 03/27/20 10:16 03/27/20 10:16 03/27/20 10:16 03/27/20 10:16 03/27/20 10:16 Oxygen Delivery Method Room Air Weight: 62.142 kg Body Mass Index (BMI) 24.3 Finger Stick Blood Glucose 377 Intake and Output for Last 24 Hours 03/25/20 03/26/20 03/27/20 23:59 23:59 23:59 Intake Total 1400 / 1400 1850 / 2140 340 / 340 Balance 1399 / 1399 340 / 340 General: Alert, Cooperative HEENT: Normocephalic Psych/Mental Status: Normal Affect, Appropriate Current Medications Buprenorphine HCl (Buprenorphine Hcl) 2 mg SL Q8H DARRIN; Taper Stop: 03/28/20 12:59 Last Admin: 03/27/20 05:11 Dose: 2 mg Documented by: Clonidine (Catapres) 0.1 mg PO Q8H PRN PRN PRN Reason: RESTLESSNESS Last Admin: 03/25/20 07:48 Dose: 0.1 mg Documented by: Dicyclomine HCl (Bentyl) 20 mg PO Q6H PRN PRN PRN Reason: Abdominal Discomfort Gabapentin (Neurontin) 300 mg PO Q8H PRN PRN PRN Reason: moderate to severe anxiety Hydroxyzine Pamoate (Vistaril Pamoate Capsule) 50 mg PO Q6H PRN PRN PRN Reason: mild anxiety Sodium Chloride () 250 mls @ 15 mls/hr IV .[id number] PRN PRN Reason: Saline Flush Sodium Chloride () 250 mls @ 15 mls/hr IV .[id number] PRN PRN Reason: Additional IVPB Infusion Loperamide HCl (Imodium) 2 mg PO Q4H PRN PRN PRN Reason: LOOSE STOOLS Methocarbamol (Methocarbamol) 1,500 mg PO Q6H PRN PRN PRN Reason: MUSCLE SPASM Ondansetron HCl (Zofran) 8 mg PO Q8H PRN PRN PRN Reason: NAUSEA Sodium Chloride () 10 - 40 ml IV UD PRN PRN Reason: SALINE FLUSH Trazodone HCl (Desyrel) 100 mg PO QHS PRN PRN PRN Reason: INSOMNIA Discharge Diet: No Restrictions Discharge Activity: Return to Normal Activity Disposition: Home Minutes spent on discharge:: 35 Patient Condition:: Stable Medical Necessity - Tobacco Use Smoking Status: Current every day smoker Tobacco Use: Cigarettes Inpatient E&M: [id number] Disch Hosp
[2020-03-27 13:00] VITALS: BP 100/68; PULSE 80; RESP 16; TEMP 36.1; O2SAT 98
== END 2020-03-27 13:20 | disposition home or self-care (01) | DRG 812 ==
LOC: ED 13:35 → MS3 19:32
PROVIDERS: Admitting Provider Family Medicine; Emergency Provider Emergency Medicine; PCP Family Medicine
DX: T40.601A Poisoning by unspecified narcotics, accidental (unintentional), initial encounter (principal); F11.20 Opioid dependence, uncomplicated; Y92.89 Other specified places as the place of occurrence of the external cause; F11.23 Opioid dependence with withdrawal; B18.2 Chronic viral hepatitis C; F31.9 Bipolar disorder, unspecified; F17.210 Nicotine dependence, cigarettes, uncomplicated; A60.00 Herpesviral infection of urogenital system, unspecified; I36.8 Other nonrheumatic tricuspid valve disorders; I10 Essential (primary) hypertension; Z86.74 Personal history of sudden cardiac arrest; Z87.01 Personal history of pneumonia (recurrent); Z86.718 Personal history of other venous thrombosis and embolism; Z86.14 Personal history of Methicillin resistant Staphylococcus aureus infection
CPT/HCPCS: 80053; 80307; 80320; 84703; 85025; 99285; 99406; A4216; G0480

== ENCOUNTER → 2020-12-15 13:05 | Outpatient (CLI) | payer MEDICAID, SELFPAY ==
[2020-03-24 18:17] VITALS: BMI 24.3
[2020-12-15 13:58] LABS: hCG Titer Quant., Serum 419 mIU/mL (1-3)
== END ==
PROVIDERS: PCP Family Medicine; Visit Provider Obstetrics & Gynecology
DX: O20.0 Threatened abortion (principal); Z3A.00 Weeks of gestation of pregnancy not specified
CPT/HCPCS: 36415; 84702

== ENCOUNTER 2022-03-23 18:10 | Observation (INO) | payer MEDICAID, SELFPAY ==
[2022-03-23 18:12] VITALS: BP 105/72; PULSE 128; RESP 14; TEMP 36.1; O2SAT 98; BMI 26.5
--- NOTE | 2022-03-23 18:44 | EX.ED.SAOD ---
HPI History of Present Illness Chief Complaint: Substance Abuse Informant: patient Narrative Narrative: Patient is a 26-year-old female with complex medical history including history of endocarditis secondary to MSSA and subsequent surgery on her tricuspid valve in December this year. She states after that surgery she was prescribed 2 weeks of pain pills. She states since then she has been buying fentanyl and opioids on the streets. She states she usually snorts it but she used IV drugs yesterday. She states has been using multiple times a day. She is coming for detox. Patient last had detox about 2 years ago and has been clean and sober until she had her heart surgery. Patient denies any acute complaints at this time. She knows she is having some mild body aches and chills but attributes that to withdrawal. She last used early this morning. [facility] Medical History Antepartum anemia Bipolar 1 disorder Endocarditis due to methicillin susceptible Staphylococcus aureus (MSSA) Endocarditis of tricuspid valve H/O emotional problems Heart murmur Hemorrhoids Hepatitis C History of alcohol abuse History of blood clots History of cardiac arrest History of cor pulmonale History of drug abuse History of endocarditis History of heroin abuse History of herpes genitalis History of incarceration History of MRSA infection History of pelvic inflammatory disease History of pneumonia History of pulmonary embolism Incontinence IVDU (intravenous drug user) Migraines Pulmonary artery aneurysm Septic pulmonary embolism Tobacco use during , antepartum Home Medications valacyclovir 500 mg tablet 500 mg PO DAILY virus 03/16/20 [History Last Taken 03/22/22] Allergy/AdvReac Type Severity Reaction Status Date / Time No Known Allergies Allergy Verified 03/23/22 18:11 Family History Mother Bipolar 1 disorder Depression Anxiety Suicide STD (female) drug addiciton Grandmother Breast cancer Arthritis Sister Depression Father Alcoholism Other Thyroid disorder Surgical History H/O tricuspid valve repair History of bronchoscopy (08/25/19) History of tracheostomy s/p coil embolization of bronchial and intercostal arteries (08/27/19) Status post insertion of percutaneous endoscopic gastrostomy (PEG) tube Social History Smoking Status: Former smoker how long ago did patient quit smokin month ago second hand exposure: No alcohol intake: never substance use type: former substance user Date of last use: - june 2016 caffeine: No what type of physical activity do you participate in: none ROS ROS ED Constitutional Constitutional ED: Reports chills; Denies fever(s) Eyes Eyes: Denies blurry vision ENT ENT ED: Denies rhinorrhea or sore throat Cardiovascular Cardiovascular: Denies chest pain Respiratory/Chest Respiratory/Chest: Denies cough or dyspnea Gastrointestinal Gastrointestinal: Denies abdominal pain or nausea Genitourinary Genitourinary ED: Denies dysuria Musculoskeletal Musculoskeletal: Reports arthralgias; Denies myalgias Integumentary Denies rash Neurologic Neurologic: Denies headache(s) or weakness Psychiatric Psychiatric: Denies anxiety EXAM Physical Exam Const Vital Signs: 03/23/22 18:12 Temperature 97 F L Temperature Source Temporal Pulse Rate 128 H Respiratory Rate 14 Blood Pressure 105/72 Blood Pressure Mean 83 Pulse Ox 98 Oxygen Delivery Method Room Air Positive well nourished and well developed General Appearance ED: well developed and NAD HEENT Reports moist mucous membranes atraumatic Eyes PERRL and EOMs intact bilaterally Neck no lymphadenopathy and no JVD Chest Wall inspection of chest normal and palpation of chest normal Resp normal respiratory effort and clear to auscultation bilaterally Cardio regular rate, regular rhythm and no murmurs GI soft to palpation, non-tender and non-distended Extremity General Extremety ED: Negative for edema or tenderness General Extremity: Negative for edema Neuro oriented x3 Sensorium / Orientation: alert Speech: speech normal Motor Exam: Negative for general weakness Psych mental status grossly normal and thought process normal Skin Lesions: no lesions Rashes: no rashes MDM MDM MDM Narrative Medical decision making narrative: Patient is evaluated for request of detox from fentanyl. She denies any other drug use that she is aware of. Denies any alcohol use. Has no other complaints at this time. Given her tachycardia will give some IV fluids and check cardiac markers with her medical history. Will be medically screened and speak with the hospitalist for admission. Patient is given IV fluids. She is tachycardic but does not have any acute EKG changes or change in her troponin. She does not have any new murmur or embolic lesions. She has a minimal leukocytosis 11.4. There is no obvious source of infection. Patient will be admitted for detox Lab Data Labs: Laboratory Results - last 24 hr 03/23/22 03/23/22 03/23/22 18:40 18:50 18:50 WBC 11.4 H RBC 4.24 Hgb 10.5 L Hct 34.1 L MCV 80.4 L MCH 24.8 L MCHC 30.8 L RDW Std Deviation 41.2 RDW Coeff of Ashley 14.1 Plt Count 185 MPV 11.4 Immature Gran % (Auto) 0.400 Neut % (Auto) 96.8 H Lymph % (Auto) 1.3 L [place] % (Auto) 1.2 Eos % (Auto) 0.0 Baso % (Auto) 0.3 Absolute Neuts (auto) 11.0 H Absolute Lymphs (auto) 0.15 L Nucleated RBC % 0 Differential Comment SCANNED Sodium Potassium Chloride Carbon Dioxide Anion Gap BUN Creatinine Estim Creat Clear Calc Est GFR (MDRD) Af Amer Est GFR (MDRD) Non-Af BUN/Creatinine Ratio Glucose Calcium Total Bilirubin AST ALT Alkaline Phosphatase Troponin I High Sens Total Protein Albumin Globulin Albumin/Globulin Ratio Serum , Qual NEGATIVE Urine Opiates Screen NEGATIVE Urine Methadone Screen NEGATIVE Ur Barbiturates Screen NEGATIVE Ur Phencyclidine Scrn NEGATIVE Ur Amphetamines Screen POSITIVE H MDMA (Ecstasy) Screen POSITIVE H U Benzodiazepines Scrn NEGATIVE Urine Cocaine Screen NEGATIVE U Cannabinoids Screen NEGATIVE Ur Drug Screen Comment Ethyl Alcohol 03/23/22 03/23/22 18:50 18:50 WBC RBC Hgb Hct MCV MCH MCHC RDW Std Deviation RDW Coeff of Ashley Plt Count MPV Immature Gran % (Auto) Neut % (Auto) Lymph % (Auto) [place] % (Auto) Eos % (Auto) Baso % (Auto) Absolute Neuts (auto) Absolute Lymphs (auto) Nucleated RBC % Differential Comment Sodium 136 Potassium 3.2 L Chloride 105 Carbon Dioxide 22.0 Anion Gap 9 BUN 14 Creatinine 0.82 Estim Creat Clear Calc 84.49 Est GFR (MDRD) Af Amer 107 Est GFR (MDRD) Non-Af 88 BUN/Creatinine Ratio 17.1 Glucose 116 H Calcium 9.0 Total Bilirubin 1.20 H AST 20 ALT 15 Alkaline Phosphatase 74 Troponin I High Sens 6 Total Protein 7.3 Albumin 3.6 Globulin 3.7 Albumin/Globulin Ratio 1.0 Serum , Qual Urine Opiates Screen Urine Methadone Screen Ur Barbiturates Screen Ur Phencyclidine Scrn Ur Amphetamines Screen MDMA (Ecstasy) Screen U Benzodiazepines Scrn Urine Cocaine Screen U Cannabinoids Screen Ur Drug Screen Comment Ethyl Alcohol < 3.0 Rhythm Strip Rhythm Strip: Sinus Tach Rate: 116 Ectopy: None EKG Initial EKG: Attestation: I personally reviewed and interpreted this EKG as follows: Interpretation: Sinus Tachycardia Comments: Sinus tachycardia at a rate of 116 Normal axis Normal intervals Normal ST segments Discharge Plan Dx/Rx/DC Orders Clinical Impression: Desire for detoxification, Opiate addiction, IVDU (intravenous drug user), Tachycardia Disposition Disposition: Acute Care Hospital [facility] Discharge Date/Time: 03/23/22 20:55
--- NOTE | 2022-03-23 18:47 | EKG12_ITS ---
Test Reason : DYSRHYTHMIA Blood Pressure : / mmHG Vent. Rate : 116 BPM Atrial Rate : 116 BPM P-R Int : 148 ms QRS Dur : 080 ms QT Int : 316 ms P-R-T Axes : 030 076 048 degrees QTc Int : 439 ms Sinus tachycardia Otherwise normal ECG Confirmed by MARIANA MCQUEEN, GRETCHEN ([id number]), magazine editor CATHY ANDRADE ([id number]) on 03/27/2022 9:19:24 AM Referred By: BB Confirmed By:GRETCHEN PEÑA MD
--- NOTE | 2022-03-23 18:48 | CM.ED ---
[facility] Note Referral Reason: [facility] Referral Source: Case Find SW met with patient. Patient is here for detox from fentanyl. Patient reports that she was using a couple of pills a day. Patient said that she thinks she was probably doing 1/2 gram a day. Last use was 5am this morning. Patient is linked with [facility] and her counselor is Matthew Mohr. Patient had 2 years sober and then relapsed after heart surgery. Patient reports she has 2 children, Kin and Franck ages 7 months and 3 years that are with her cousin. Patient was explained the rules of the R[facility] program including no phone, no visitors and belongings secured and patient verbalized understanding and agreement. SW called Yi, Treatment Navigator and updated her regarding patient's admission to [facility] program. Yi is familiar with patient. Patient is still in the ED so no MS or PCU room has been assigned for patient. Yi will follow up in the morning. Giovana STACK
[2022-03-23] MEDS: 0.9% Normal Saline 1,000 ML 999 ML IV (19:03)
[2022-03-23 19:07] LABS: Absolute Lymphocyte Count 0.15 X10^3/uL (0.83-4.51); Basophil# 0.03 X10^3/uL; Basophil% 0.3 % (0-1); Hematocrit 34.1 % (37-47); Hemoglobin 10.5 g/dL (12.0-15.0); Lymphocyte # 0.15 X10^3/ul (0.83-4.51); Lymphocyte % 1.3 % (19-41); Mean Corp Hgb Conc 30.8 g/dL (32-36); Mean Corpuscular Hgb 24.8 pg (27.0-32.0); Mean Corpuscular Volume 80.4 fL (81-99); Mean Platelet Vol. 11.4 fl (6.2-12.0); Monocyte# 0.14 X10^3/uL; Monocyte% 1.2 % (0-10); NRBC Flagged by Analyzer 0 % (0-5); Neutrophil # 11.01 X10^3/uL (2.7-7.7); Neutrophil % 96.8 % (47-70); POSITIVE DIFFERENTIAL YES; Platelet Count 185 K/mm3 (150-450); RBC Distribution Width CV 14.1 % (11.6-14.6); RBC Distribution Width SD 41.2 fl (35.1-43.9); Red Blood Count 4.24 M/mm3 (4.2-5.4); White Blood Count 11.4 K/mm3 (4.4-11.0)
[2022-03-23 19:26] LABS: Internal QC Validated? YES +Cl - CLEAR BKGD
[2022-03-23 19:27] LABS: Pregnancy, Serum, hCG Quali. NEGATIVE Negative
[2022-03-23 19:29] LABS: AST(SGOT) 20 U/L (15-37); Alanine Aminotransfer ALT/SGPT 15 U/L (13-56); Albumin, Serum 3.6 g/dL (3.2-5.0); Alkaline Phosphatase 74 U/L (45-117); Anion Gap 9 (5-15); BUN 14 mg/dL (7-18); BUN/Creat Ratio 17.1 RATIO (10-20); Chloride 105 mmol/L (98-107); Creatinine, Serum 0.82 mg/dL (0.55-1.02); Differential Indicated SCAN CRITERIA MET; EST Glomerular Filtration Rate 88 mL/min (>60); Est Glom Filt Rate - Afr Amer 107 mL/min (>60); Estimated Creatinine Clearance 84.49 ml/min; Globulin 3.7 g/dL (2.2-4.2); Glucose 116 mg/dL (74-106); Potassium 3.2 mmol/L (3.5-5.1); Protein, Total 7.3 g/dL (6.4-8.2); Sodium Level 136 mmol/L (136-145); Troponin-I HS 6 pg/mL (3.0-54.0)
[2022-03-23 19:33] LABS: Alcohol, Blood (Medical)-Serum < 3.0 mg/dL
[2022-03-23 19:39] LABS: Amphetamine Urine VISTA POSITIVE (<1000 ng/mL); Barbiturate Urine VISTA NEGATIVE (< 200 ng/mL); Benzodiazepine Urine VISTA NEGATIVE (< 200 ng/mL); Cocaine Urine VISTA NEGATIVE (< 300 ng/mL); Ecstacy Urine VISTA POSITIVE (< 500 ng/mL); Methadone Urine VISTA NEGATIVE (< 300 ng/mL); PCP Urine VISTA NEGATIVE (< 25 ng/mL); THC Urine VISTA NEGATIVE (< 50 ng/mL); Vista UDS pH Range 6
--- NOTE | 2022-03-23 19:58 | HP.PCM.HOS_ITS ---
[facility] - General General Date of Admission: 03/23/22 Date of Service: 03/23/22 Chief Complaint: Desire for detoxification HPI Narrative CARLENE BARR, is a 26 F with a significant history of IV drug use status post tricuspid endocarditis with repair; and tracheostomy with trach closure; and former tobacco abuse who presents to the emergency department for help with opioid detoxification. All in all patient has been abusing opiates for about 5 years. She quit for about 2 years and then resumed. Patient had a tricuspid valve repair in December 2021 and was prescribed opioid medication. Following the prescription of opioid medication patient began to buy opioids mainly, fentanyl from the streets. She report that now she snorts her opioids. However a day before presentation and on the day of presentation she shot the opioids. She reported typically in a day she is about half a gram to 1 g/day. She reports beginning of withdrawal symptoms of restlessness; feeling hot and cold; restless leg; and pain to multiple joints. 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 H/O emotional problems Heart murmur Hemorrhoids Hepatitis C History of alcohol abuse History of blood clots History of cardiac arrest History of cor pulmonale History of drug abuse History of endocarditis History of heroin abuse History of herpes genitalis History of incarceration History of MRSA infection History of pelvic inflammatory disease History of pneumonia History of pulmonary embolism Incontinence IVDU (intravenous drug user) Migraines Pulmonary artery aneurysm Septic pulmonary embolism Tobacco use during , antepartum Home Medications valacyclovir 500 mg tablet 500 mg PO DAILY virus 03/16/20 [History Last Taken 03/24/20] Allergy/AdvReac Type Severity Reaction Status Date / Time No Known Allergies Allergy Verified 03/23/22 18:11 Family History Mother Bipolar 1 disorder Depression Anxiety Suicide STD (female) drug addiciton Grandmother Breast cancer Arthritis Sister Depression Father Alcoholism Other Thyroid disorder Surgical History H/O tricuspid valve repair History of bronchoscopy (08/25/19) History of tracheostomy s/p coil embolization of bronchial and intercostal arteries (08/27/19) Status post insertion of percutaneous endoscopic gastrostomy (PEG) tube Social History Smoking Status: Former smoker how long ago did patient quit smokin month ago second hand exposure: No alcohol intake: never substance use type: former substance user Date of last use: heroin - june 2016 caffeine: No what type of physical activity do you participate in: none ROS ROS Narrative Pertinent positives and pertinent negatives as noted in HPI. All other systems were reviewed and are negative. Vital Signs Vital Signs Vital Signs: 03/23/22 18:12 Temperature 97 F L Temperature Source Temporal Pulse Rate 128 H Respiratory Rate 14 Blood Pressure 105/72 Blood Pressure Mean 83 Pulse Ox 98 Oxygen Delivery Method Room Air Weight Weight: 68 kg Body Mass Index (BMI) 26.5 Physical Exam Narrative Physical exam: General: Well-nourished, well-developed. Head: Normocephalic, atraumatic, no tenderness Eyes: Vision is grossly intact. EOMI ENT, no trauma, moist mucous membranes, no rhinorrhea Neck: Nontender, full range of motion, no spinal tenderness, deformities, step- off CVS: Regular rate and rhythm. S1-S2 present. No murmur, gallop or rub. Respiratory : clear to auscultation bilaterally, chest wall nontender, no wheezing Abdomen: Soft, nontender, nondistended, normal bowel sounds, no masses : Deferred Back: Nontender, no CVA tenderness, no midline spinal tenderness, deformities, step-offs Extremities: Nontender full range of motion, no trauma Skin: Normal color, no trauma, abrasions Neuro: Alert, oriented, cranial nerves II through XII grossly intact. Psychiatry: Patient restless and moving her legs repeatedly in bed. Results Lab / Micro Data Result Diagrams: 03/23/22 18:50 03/23/22 18:50 Labs: Laboratory Results - last 24 hr 03/23/22 18:40: Urine Opiates Screen NEGATIVE, Urine Methadone Screen NEGATIVE, Ur Barbiturates Screen NEGATIVE, Ur Phencyclidine Scrn NEGATIVE, Ur Amphetamines Screen POSITIVE H, MDMA (Ecstasy) Screen POSITIVE H, U Benzodiazepines Scrn NEGATIVE, Urine Cocaine Screen NEGATIVE, U Cannabinoids Screen NEGATIVE, Ur Drug Screen Comment 03/23/22 18:50: WBC 11.4 H, RBC 4.24, Hgb 10.5 L, Hct 34.1 L, MCV 80.4 L, MCH 24.8 L, MCHC 30.8 L, RDW Std Deviation 41.2, RDW Coeff of Ashley 14.1, Plt Count 185, MPV 11.4, Immature Gran % (Auto) 0.400, Neut % (Auto) 96.8 H, Lymph % (Auto) 1.3 L, [place] % (Auto) 1.2, Eos % (Auto) 0.0, Baso % (Auto) 0.3, Absolute Neuts (auto) 11.0 H, Absolute Lymphs (auto) 0.15 L, Nucleated RBC % 0 03/23/22 18:50: Serum , Qual NEGATIVE 03/23/22 18:50: Sodium 136, Potassium 3.2 L, Chloride 105, Carbon Dioxide 22.0, Anion Gap 9, BUN 14, Creatinine 0.82, Estim Creat Clear Calc 84.49, Est GFR (MDRD) Af Amer 107, Est GFR (MDRD) Non-Af 88, BUN/Creatinine Ratio 17.1, Glucose 116 H, Calcium 9.0, Total Bilirubin 1.20 H, AST 20, ALT 15, Alkaline Phosphatase 74, Troponin I High Sens 6, Total Protein 7.3, Albumin 3.6, Globulin 3.7, Albumin/Globulin Ratio 1.0 03/23/22 18:50: Ethyl Alcohol < 3.0 Assessment & Plan Assessment/Plan (1) Desire for detoxification: PLAN: Plan Opioid dependence and withdrawal Patient be started on Subutex and other adjunctive medications: Gabapentin as needed; dicyclomine as needed; Vistaril as needed; methocarbamol as needed; clonidine as needed; Imodium as needed; trazodone as needed and Zofran as needed. Monitor COWS and CINA score Hypokalemia Potassium of 3.2 on presentation; replace. DVT prophylaxis Low risk Encourage to ambulate Charges/Coding Visit Charges Inpatient E&M: 84592 Init Hosp L2
[2022-03-23 20:02] LABS: Differential Comment SCANNED
[2022-03-23 20:07] VITALS: BP 105/72; PULSE 128; RESP 14; TEMP 36.1; O2SAT 98
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
[2022-03-23 21:06] VITALS: BP 100/64; PULSE 104; RESP 16; TEMP 36.8; O2SAT 100
[2022-03-23 21:12] VITALS: BMI 26.5
[2022-03-23] MEDS: Potassium Chloride Oral Tablet 20 MEQ 40 MEQ PO (22:09)
[2022-03-23] MEDS: traZODone 100 MG Tablet PO (22:09)
[2022-03-23] MEDS: Methocarbamol 750 MG Tablet 1500 MG PO (22:09)
[2022-03-23] MEDS: hydrOXYzine PAM 25 MG Capsule 50 MG PO (22:09)
[2022-03-23] MEDS: cloNIDine HCl 0.1 MG Tablet PO (22:09)
[2022-03-23] MEDS: Acyclovir 200 MG Capsule 400 MG PO (22:09)
[2022-03-24 04:33] VITALS: BP 91/58; PULSE 92; RESP 18; TEMP 37.6; O2SAT 98
[2022-03-24] MEDS: Buprenorphine HCl 2 MG TAB.SUBL 4 MG SL ×2 (04:51→12:01)
[2022-03-24] MEDS: hydrOXYzine PAM 25 MG Capsule 50 MG PO ×2 (04:51→13:13)
[2022-03-24] MEDS: Methocarbamol 750 MG Tablet 1500 MG PO ×2 (04:51→13:13)
[2022-03-24] MEDS: Gabapentin 300 MG Capsule PO ×2 (06:48→14:33)
[2022-03-24] MEDS: Acetaminophen 325 MG Tablet 650 MG PO ×2 (06:51→14:33)
[2022-03-24] MEDS: Dicyclomine 10 MG Capsule 20 MG PO (06:52)
[2022-03-24] MEDS: Ondansetron 8 MG Tablet PO (06:52)
[2022-03-24] MEDS: cloNIDine HCl 0.1 MG Tablet PO (07:39)
[2022-03-24] MEDS: Acyclovir 200 MG Capsule 400 MG PO (07:39)
[2022-03-24 07:58] VITALS: BP 107/69; PULSE 112; RESP 18; TEMP 36.7; O2SAT 100
--- NOTE | 2022-03-24 08:33 | PCM.PN.HOSP ---
Subjective Subjective States she is in pain however she is here for opiate withdrawal. Cina score of 14 Objective Data Objective Data Vital Signs: Vital Signs Temp Pulse Resp BP Pulse Ox O2 Del Method 98.1 F 112 H 18 107/69 100 Room Air 03/24/22 07:58 03/24/22 07:58 03/24/22 07:58 03/24/22 07:58 03/24/22 07:58 03/24/22 07:59 Oxygen Delivery Method Room Air Weight: 150 lb Body Mass Index (BMI) 26.5 Intake & Output: Intake and Output for Last 24 Hours 03/23/22 03/24/22 03/25/22 03:59 03:59 03:59 Intake Total 1000 / 1000 Balance 1000 / 1000 Lab / Micro Data Result Diagrams: 03/23/22 18:50 03/23/22 18:50 Labs: Laboratory Results - last 24 hr 03/23/22 18:40: Urine Opiates Screen NEGATIVE, Urine Methadone Screen NEGATIVE, Ur Barbiturates Screen NEGATIVE, Ur Phencyclidine Scrn NEGATIVE, Ur Amphetamines Screen POSITIVE H, MDMA (Ecstasy) Screen POSITIVE H, U Benzodiazepines Scrn NEGATIVE, Urine Cocaine Screen NEGATIVE, U Cannabinoids Screen NEGATIVE, Ur Drug Screen Comment 03/23/22 18:50: WBC 11.4 H, RBC 4.24, Hgb 10.5 L, Hct 34.1 L, MCV 80.4 L, MCH 24.8 L, MCHC 30.8 L, RDW Std Deviation 41.2, RDW Coeff of Ashley 14.1, Plt Count 185, MPV 11.4, Immature Gran % (Auto) 0.400, Neut % (Auto) 96.8 H, Lymph % (Auto) 1.3 L, [place] % (Auto) 1.2, Eos % (Auto) 0.0, Baso % (Auto) 0.3, Absolute Neuts (auto) 11.0 H, Absolute Lymphs (auto) 0.15 L, Nucleated RBC % 0, Differential Comment SCANNED 03/23/22 18:50: Serum , Qual NEGATIVE 03/23/22 18:50: Sodium 136, Potassium 3.2 L, Chloride 105, Carbon Dioxide 22.0, Anion Gap 9, BUN 14, Creatinine 0.82, Estim Creat Clear Calc 84.49, Est GFR (MDRD) Af Amer 107, Est GFR (MDRD) Non-Af 88, BUN/Creatinine Ratio 17.1, Glucose 116 H, Calcium 9.0, Total Bilirubin 1.20 H, AST 20, ALT 15, Alkaline Phosphatase 74, Troponin I High Sens 6, Total Protein 7.3, Albumin 3.6, Globulin 3.7, Albumin/Globulin Ratio 1.0 03/23/22 18:50: Ethyl Alcohol < 3.0 Rhythm Strip Rhythm Strip: Sinus Tach Rate: 116 Ectopy: None Physical Exam Narrative General: Alert, Oriented x3, Cooperative, moaning and fidgeting HEENT: Atraumatic, PERRLA, EOMI, Normocephalic Oral: Moist Mucosa Neck: Supple, No JVD Lungs: Clear to auscultation, Normal air movement, No rhonchi, No wheeze, No rales Cardiovascular: Regular rate, Regular Rhythm, Normal S1, Normal S2, No murmurs Abdomen: Soft, Non Tender, Non-Distended, No Hepato-splenomegaly Extremities: No edema, Capillary Refill Less than 3 Seconds Skin: No rashes, No breakdown Musculoskeletal: No Tenderness to Palpation of Joints or Extremities Neurological: Cranial nerves II-XII grossly intact, Motor Exam 5/5 strength throughout, Sensory exam intact to light touch and pain Psych/Mental Status: Flat affect, Appropriate Assessment & Plan Assessment/Plan (1) Desire for detoxification: PLAN: Plan 1. Opiate withdrawal/hepatitis C/bipolar disorder ? Continue with the opiate withdrawal protocol ? We will have her meet with 180 to establish outpatient assistance ? She has had significant struggles with IV drug use which has led to a tricuspid valve endocarditis in the past as well as needing a trach. ? It is hard to gauge her physical exam because when he initially walk-in she is moaning and squirming around the bed and then the moment to ask her questions and she completely stops and answer question appropriately and then goes back to moaning and screaming around the bed DVT: Ambulation Charges/Coding Visit Charges Inpatient E&M: 97367 Subs Hosp L2
[2022-03-24 12:19] VITALS: BP 129/83; PULSE 86; RESP 18; TEMP 36.7; O2SAT 97
[2022-03-24 14:00] VITALS: BP 87/49; PULSE 85; RESP 18; TEMP 36.6; O2SAT 94
== END 2022-03-24 15:03 | disposition left against medical advice (07) | DRG 770 ==
LOC: ED 19:08 → MS3 03-24 07:01
PROVIDERS: Admitting Provider Hospitalist; Emergency Provider Emergency Medicine; PCP Family Medicine; Visit Provider Family Medicine
DX: F11.23 Opioid dependence with withdrawal (principal); Z53.29 Procedure and treatment not carried out because of patient's decision for other reasons; Z86.74 Personal history of sudden cardiac arrest; Z95.2 Presence of prosthetic heart valve; Z87.891 Personal history of nicotine dependence; Z86.711 Personal history of pulmonary embolism; Z86.14 Personal history of Methicillin resistant Staphylococcus aureus infection; A60.00 Herpesviral infection of urogenital system, unspecified; Z79.899 Other long term (current) drug therapy; E87.6 Hypokalemia
CPT/HCPCS: 80053; 80307; 82077; 84484; 84703; 85025; 93005; 96360; 99218; 99284; J7030; A4216; G0378

== ENCOUNTER → 2023-02-12 | Outpatient (CLI) | payer MEDICAID, SELFPAY | END | disposition home or self-care (01) | LOC: SL 20:07 | PROVIDERS: PCP Family Medicine; Referring Provider Nurse Practitioner Acute Care; Visit Provider Nurse Practitioner Acute Care | DX: G47.10 Hypersomnia, unspecified (principal) | CPT/HCPCS: 95810 ==

== ENCOUNTER → 2023-03-06 | Outpatient (CLI) | payer MEDICAID, SELFPAY | END | disposition home or self-care (01) | LOC: SL 21:00 | PROVIDERS: PCP Family Medicine; Referring Provider Nurse Practitioner Acute Care; Visit Provider Nurse Practitioner Acute Care | DX: G47.31 Primary central sleep apnea (principal) | CPT/HCPCS: 95811 ==